=== PATIENT | female | born 1990 | race Caucasian/White ===

== ENCOUNTER 2019-11-27 13:21 | Outpatient (CLI) | payer OTHER, SELFPAY ==
--- NOTE | ~2019-11-27 | US_ITS ---
US breast BI complete INDICATION: Bilateral breast pain TECHNIQUE: Dedicated bilateral breast ultrasound COMPARISON: No prior studies for comparison. FINDINGS: The breasts are composed of normal heterogeneous echotexture without focal solid or cystic mass. IMPRESSION: 1: Normal bilateral breast ultrasound. BI-RADS CATEGORY 1 - NEGATIVE Reviewed, dictated and finalized at location A.
== END 2019-11-27 13:22 | disposition home or self-care (01) ==
LOC: ANHIMG 13:25
PROVIDERS: PCP Family Medicine; Visit Provider Physician Assistant
DX: N64.4 Mastodynia (principal)
CPT/HCPCS: 76641

== ENCOUNTER 2022-09-09 09:40 | Emergency (ER) | payer BC, SELFPAY ==
[2022-09-09 10:00] VITALS: BP 142/95; PULSE 89; RESP 18; TEMP 36.4; O2SAT 98
[2022-09-09 10:37] LABS: Appearance Urine Clear (Clear); Bilirubin Urine Negative (Negative); Blood Urine 1+ (Negative); Color Urine Yellow (Yellow); Glucose Urine UA Negative (Negative); Ketones Urine Negative (Negative); Leukocyte Esterase Ur 3+ LEU/UL (Negative); Nitrate Urine Negative (Negative); Protein Urine Negative (Negative); Specific Grav Ur 1.006 (1.001-1.035); Urobilinogen Urine 0.2 mg/dL (<2.0); pH Urine 5.5 (5.0-9.0)
[2022-09-09 11:02] LABS: RBC Urine None seen /hpf (0-2); Squamous Epithelial Cell Urine Occasional /hpf (Few); WBC Clumps Urine Present /HPF; WBC Urine 21-50 /hpf
[2022-09-09 11:03] LABS: Bacteria Urine 1+ /hpf
[2022-09-09 11:04] LABS: Add Urine Microscopic? YES
[2022-09-09] MEDS: PHENAZOPYRIDINE HCL 100 MG TABLET 200 MG PO (13:19)
--- NOTE | 2022-09-09 13:43 | ED.GENADULT ---
HPI - General Adult General Chief complaint: Urogenital-Female Stated complaint: ?UTI Time Seen by Provider: 09/09/22 12:33 History of Present Illness HPI narrative: 31-year-old female presented the ED for evaluation of burning with urination. Patient reports she has been experiencing pain on and off. Patient was having these symptoms previously and was encouraged to follow-up with urology but patient states that her schedule did not correlate well with the urologist so she never actually had follow-up. Related Data Allergies Allergy/AdvReac Type Severity Reaction Status Date / Time No Known Allergies Allergy Verified 09/09/22 11:57 Review of Systems Review of Systems: All systems reviewed & are unremarkable except as noted in HPI and below Exam Narrative: APPEARANCE: Well appearing, no pain, no distress, well-nourished. HEAD: normocephalic, atraumatic. EYES: PERRLA/EOMI, conjunctivae clear. NOSE: Normal no drainage NECK: Supple. No adenopathy, no masses. RESPIRATORY: Airway patent, respirations nonlabored. Clear to auscultation bilaterally, no rales, rhonchi, wheezing. CARDIOVASCULAR: Regular rate and rhythm without murmurs rubs or gallops. ABDOMINAL: Soft, nontender, nondistended, normal bowel sounds MUSCULOSKELETAL: Moves all extremities. Strength/ROM intact, No edema, No calf tenderness. NEURO: Alert. Cranial nerves II through XII intact. Grossly intact SKIN: Warm, dry. Normal Color Course Course Emergency Course: UA shows evidence of a urinary tract infection. Patient was treated with IV Rocephin. Patient was treated with p.o. Pyridium for complaint of dysuria. Patient and family were updated on the results of the work-up and plan for treatment. Patient was encouraged of close follow-up with urology. All questions and concerns were addressed. Vital Signs Vital signs: Vital Signs Temperature 97.6 F 09/09/22 10:00 Pulse Rate 89 09/09/22 10:00 Respiratory Rate 18 09/09/22 10:00 Blood Pressure 142/95 H 09/09/22 10:00 Pulse Oximetry 98 09/09/22 10:00 Oxygen Delivery Room Air 09/09/22 10:00 Temperature 97.6 F 09/09/22 10:00 Pulse Rate 89 09/09/22 10:00 Respiratory Rate 18 09/09/22 10:00 Blood Pressure 142/95 H 09/09/22 10:00 Pulse Oximetry 98 09/09/22 10:00 Oxygen Delivery Room Air 09/09/22 10:00 Medical Decision Making Differential Diagnosis Differential Diagnosis: Urinary tract infection, cystitis, pyelonephritis Vital Signs Vital Signs: Vital Signs Temperature 97.6 F 09/09/22 10:00 Pulse Rate 89 09/09/22 10:00 Respiratory Rate 18 09/09/22 10:00 Blood Pressure 142/95 H 09/09/22 10:00 Pulse Oximetry 98 09/09/22 10:00 Oxygen Delivery Room Air 09/09/22 10:00 Temperature 97.6 F 09/09/22 10:00 Pulse Rate 89 09/09/22 10:00 Respiratory Rate 18 09/09/22 10:00 Blood Pressure 142/95 H 09/09/22 10:00 Pulse Oximetry 98 09/09/22 10:00 Oxygen Delivery Room Air 09/09/22 10:00 Lab Data Lab results reviewed: Yes I reviewed the patient's lab results. Labs: Lab Results 09/09/22 Range/Units 10:13 Urine Color Yellow (Yellow) Urine Appearance Clear (Clear) Urine pH 5.5 (5.0-9.0) Ur Specific [place] 1.006 (1.001-1.035) Urine Protein Negative (Negative) mg/dL Urine Glucose (UA) Negative (Negative) mg/dL Urine Ketones Negative (Negative) mg/dL Ur Blood (Man) 1+ H (Negative) Urine Nitrate Negative (Negative) Urine Bilirubin Negative (Negative) Urine Urobilinogen 0.2 (<2.0) mg/dL Leukocyte Esterase Rfl 3+ H (Negative) CAMILO/UL Urine RBC None seen (0-2) /hpf Urine WBC 21-50 H /hpf Urine WBC Clumps Present H (None) /HPF Ur Squamous Epith Cells Occasional (Few) /hpf Urine Bacteria 1+ H /hpf UCG Bedside Result Negative Reference Range: Negative Discharge Plan Discharge Clinical Impressi
== END 2022-09-09 14:03 | disposition home or self-care (01) ==
PROVIDERS: Emergency Provider Emergency Medicine; PCP Family Medicine
DX: N39.0 Urinary tract infection, site not specified (principal)
CPT/HCPCS: 81001; 81025; 87077; 87086; 87186; 96365; 99284; A9270; J0696

== ENCOUNTER 2023-11-18 09:26 | Outpatient (CLI) | payer BC, SELFPAY ==
[2023-11-18 10:09] LABS: Anion Gap 9 mmol/L (4-12); Blood Urea Nitrogen 14 mg/dL (7-17); Calcium 8.9 mg/dL (8.4-10.2); Carbon Dioxide 23 mmol/L (22-30); Chloride 105 mmol/L (98-107); Cholesterol 195 mg/dL (0-200); Estimated Glomerular Filt Rate > 60; Glucose 93 mg/dL (65-110); HDL Direct 45 mg/dL; Potassium 4.1 mmol/L (3.4-5.0); Sodium 137 mmol/L (137-145); Triglycerides 215 mg/dL (<150)
[2023-11-18 10:20] LABS: LDL Cholesterol Direct 108 mg/dL
[2023-11-18 10:44] LABS: Vitamin D 25 Hydroxy 41.3 ng/mL
[2023-11-19 11:04] LABS: Progesterone <0.5 ng/mL
[2023-11-19 12:58] LABS: Insulin Level Total 21.2 uIU/mL
[2023-11-21 18:43] LABS: Testosterone Total 45 ng/dL (2-45)
== END 2023-11-18 09:27 | disposition home or self-care (01) ==
PROVIDERS: Student in an Organized Health Care Education/Training Program; PCP Nurse Practitioner Family; Visit Provider Nurse Practitioner Family
DX: E66.9 Obesity, unspecified (principal); E28.2 Polycystic ovarian syndrome; E55.9 Vitamin D deficiency, unspecified; Z13.220 Encounter for screening for lipoid disorders
CPT/HCPCS: 36415; 80048; 80061; 82306; 83525; 84144; 84403; 84443

== ENCOUNTER 2024-02-02 12:18 | Emergency (ER) | payer BC, SELFPAY ==
--- NOTE | ~2024-02-02 | US_ITS ---
COMPLETE ABDOMINAL ULTRASOUND Ordering provider: Blayne Banks MD History: . pain . Comparison: None. FINDINGS: LIVER: Difficult to penetrate. Otherwise, Normal size and echotexture. No focal hepatic lesions or pe rihepatic fluid collections are identified. Normal flow of the portal vein. GALLBLADDER: Cholelithiasis. No evidence for , sludge, gallbladder wall thickening or pericholecystic fluid collections. The wall measures 2 mm. A negative sonographic Delgado's sign was noted. BILIARY DUCTS: No evidence for intra or extrahepatic biliary dilation. Common bile duct measures 6 mm in diameter which is within normal limits. PANCREAS: Partially visualized. Normal echotexture and size. IMPRESSION: Cholelithiasis with no evidence of cholecystitis. Reviewed, dictated and finalized at location A.
--- NOTE | ~2024-02-02 | XR_ITS ---
EXAMINATION: XR chest 2V DATE: 02/02/2024 13:15 INDICATION: Low heart rate TECHNIQUE: frontal and lateral views of the chest were obtained. COMPARISON: Chest radiograph dated 09/24/2014 FINDINGS: Decreased lung volumes. Lungs remain clear. No focal airspace opacities, pulmonary edema, pleural eff usion or pneumothorax. The cardiomediastinal silhouette is normal. Visualized bones and soft tissues are unremarkable. IMPRESSION: 1. No acute cardiopulmonary disease. Reviewed, dictated and finalized at location A.
[2024-02-02 12:20] VITALS: BP 137/86; PULSE 79; RESP 20; TEMP 36.4; O2SAT 99
--- NOTE | 2024-02-02 12:24 | ECG_ITS ---
Test Date: 2024-02-02 12:28:26 Measurements Intervals Finley Rate: 65 P: 6 UT: 127 QRS: 3 QRSD: 97 T: 23 QT: 385 QTc: 402 Interpretive Statements SINUS RHYTHM No previous ECG available for comparison Electronically Signed On 02-02-2024 13:06:57 CDT by Sisi Michael M.D.
--- NOTE | 2024-02-02 12:24 | ED.GENADULT ---
HPI - General Adult General Chief complaint: Recheck/Abnormal Lab/Rx Stated complaint: abnormal HR, abd pain Time Seen by Provider: 02/02/24 12:20 History of Present Illness HPI narrative: Patient is a 33-year-old female who presents ER with 2 complaints. First is low heart rate. Reports her wash alerted her to heart rate of 38 beats per minute. It was a singular episode today. Asymptomatic. She has had similar episodes like this over last week. No exertional dyspnea or lightheadedness. Patient does report some epigastric cramping without radiation. No known aggravating or alleviating factors. She does still have a gallbladder. Related Data Home Medications Medication Instructions Recorded Confirmed vit no.95-ferrous tablet PO 10/12/22 12/21/23 fumarate 28 mg-folic acid 800 mcg tablet () sertraline 100 mg tablet 100 mg PO 10/12/22 12/21/23 Allergies Allergy/AdvReac Type Severity Reaction Status Date / Time No Known Allergies Allergy Verified 12/21/23 14:53 Review of Systems Review of Systems: All systems reviewed & are unremarkable except as noted in HPI and below Constitutional: Constitutional: Reports no additional constitutional complaints ENT: Reports system reviewed and no additional complaints, except as documented Cardiovascular: Cardiovascular: Denies chest pain, Denies rapid heart rate, Denies radiating jaw, neck or arm pain and Reports slow heart rate Respiratory: Respiratory: Reports no additional respiratory complaints Gastrointestinal: Gastrointestinal: Reports abdominal pain, Denies diarrhea, Denies nausea and Denies vomiting PMFSH Past Medical History Medical History Anxiety Depression PCOS (polycystic ovarian syndrome) Surgical History Surgical History H/O knee surgery x 4 Hx of tonsillectomy Family History Family History Mother Acute myocardial infarction Father Blood clot in leg Social History Social History Smoking status: Former smoker Alcohol intake: current Alcohol use details: rare Substance use: never Lack of Transportation: No Lack of Food: Never True Current Housing: I Have Housing Concerned About Future Housing: No Difficulty Paying Gas/Electric Bills: No Difficulty Paying for Meds: No Currently Unemployed: No Education: High School Diploma/GED Difficulty w/ Childcare or Family Care: No Living arrangements: other Additional living arrangements comments: Occupation/Education: occupation Gender identity (if verbalized by the patient): Female Sexual Orientation (if Verbalized by the Patient): Straight or Heterosexual Exam Narrative: GENERAL: Well-appearing, Morbidly obese, and in no acute distress. HEAD: Normocephalic, atraumatic. ENT: Mucous membranes moist. NECK: Supple. CHEST: Clear to auscultation. No respiratory distress. HEART: Regular rate and rhythm. Normal peripheral pulses. ABDOMEN: Soft, nontender, nondistended. EXTREMITIES: Normal range of motion. No edema. SKIN: Warm, dry, no rash. NEURO: Alert and oriented x3. PSYCH: Normal mood and affect. Course Course Emergency Course: Patient resting comfortably. Informed of imaging and lab results. Discussed treatment plan including low-fat diet as well as as needed pain/nausea control. Follow-up with general surgery. Vital Signs Vital signs: Vital Signs Temperature 97.6 F 02/02/24 12:20 Pulse Rate 79 02/02/24 12:20 Respiratory Rate 20 02/02/24 12:20 Blood Pressure 137/86 02/02/24 12:20 Pulse Oximetry 99 02/02/24 12:20 Oxygen Delivery Room Air 02/02/24 12:20 Temperature 97.6 F 02/02/24 12:20 Pulse Rate 77 02/02/24 14:57 Respiratory Rate 19 02/02/24 14:5
[2024-02-02] MEDS: SODIUM CHLORIDE 0.9% IV 1,000 ML 999 ML IV CONT (13:01)
[2024-02-02] MEDS: MORPHINE SULFATE (*CRX) 4 MG/ML INJ 2 MG IV PUSH (13:01)
[2024-02-02 13:08] LABS: Basophils Percent Auto 0.2 % (0.2-1.2); Eosinophils Absolute Auto 0.1 K/mm3 (0-0.3); Eosinophils Percent Auto 0.6 % (0-4.4); Hematocrit 40.4 % (37.0-47.0); Hemoglobin 13.6 g/dL (12.0-15.0); Immature Granulocyte Absolute 0.04 K/mm3 (0.00-0.031); Immature Granulocyte Percent A 0.4 % (0-0.5); Lymphocytes Percent Auto 31.4 % (18.3-44.2); Mean Corpuscular HGB Conc 33.7 g/dl (32-36); Mean Corpuscular Hemoglobin 28.5 pg (26-34); Mean Corpuscular Volume 84.5 fl (80-100); Mean Platelet Volume 9.4 fl (7.4-10.4); Monocytes Absolute Auto 0.7 K/mm3 (0.1-0.6); Monocytes Percent Auto 7.1 % (2.6-8.5); Neutrophils Absolute Auto 5.9 K/mm3 (1.3-6.7); Neutrophils Percent Auto 60.3 % (45.5-73.1); Platelet Count Result 323 k/mm3 (150-375); Red Blood Count 4.78 M/mm3 (4.2-5.4); Red Cell Distribution Width 13.2 % (11.5-14.5); White Blood Count 9.9 K/mm3 (4.5-10.0)
[2024-02-02 13:17] LABS: Lactic Acid Reflex 1.2 mmol/L (0.7-2.0)
[2024-02-02 13:18] LABS: Alanine Aminotransferase 32 U/L (6-35); Albumin Level 4.2 g/dL (3.5-5.1); Alkaline Phosphatase 59 U/L (38-126); Anion Gap 8 mmol/L (4-12); Aspartate Amino Transferase 38 U/L (14-36); Bilirubin,Total 0.3 mg/dL (0.2-1.3); Blood Urea Nitrogen 15 mg/dL (7-17); Calcium 9.6 mg/dL (8.4-10.2); Carbon Dioxide 25 mmol/L (22-30); Chloride 103 mmol/L (98-107); Estimated CRCL calculation 117 ml/min; Estimated Glomerular Filt Rate > 60; Glucose 110 mg/dL (65-110); Lipase 75 U/L (23-300); Potassium 4.2 mmol/L (3.4-5.0); Sodium 136 mmol/L (137-145)
--- NOTE | 2024-02-02 14:38 | PC.NURSE ---
patient ambulated to restroom with steady gate
[2024-02-02 14:57] VITALS: BP 113/85; PULSE 77; RESP 19; O2SAT 97
[2024-02-02] MEDS: MORPHINE SULFATE (*CRX) 4 MG/ML INJ IV PUSH (14:58)
[2024-02-02 15:02] LABS: Add Urine Microscopic? NO; Appearance Urine Clear (Clear); Bilirubin Urine Negative (Negative); Blood Urine Negative (Negative); Color Urine Yellow (Yellow); Glucose Urine UA Negative (Negative); Ketones Urine Negative (Negative); Leukocyte Esterase Ur Negative LEU/UL (Negative); Nitrate Urine Negative (Negative); Protein Urine Negative (Negative); Specific Grav Ur 1.016 (1.001-1.035); Urobilinogen Urine 0.2 mg/dL (<2.0)
[2024-02-02 16:06] VITALS: BP 113/80; PULSE 78; RESP 15; O2SAT 96
== END 2024-02-02 16:17 | disposition home or self-care (01) ==
PROVIDERS: Emergency Provider Emergency Medicine; PCP Family Medicine
DX: K80.20 Calculus of gallbladder without cholecystitis without obstruction (principal); E28.2 Polycystic ovarian syndrome; F41.9 Anxiety disorder, unspecified; F32.A Depression, unspecified; Z87.891 Personal history of nicotine dependence
CPT/HCPCS: 36415; 71046; 76705; 80053; 81003; 83605; 83690; 85025; 93005; 96361; 96374; 96376; 99284; J2270; J7030

== ENCOUNTER 2024-03-06 20:47 | Emergency (ER) | payer BC, SELFPAY ==
[2024-03-06 20:54] VITALS: BP 127/106; PULSE 91; RESP 16; TEMP 36.3; O2SAT 98
--- NOTE | 2024-03-06 22:23 | PC.NURSE ---
pt to rn ortho that she thinks it was just indigestion and will be leaving. Pt drank a sprite and feels better.
[2024-03-06 22:25] LABS: Basophils Percent Auto 0.4 % (0.2-1.2); Eosinophils Absolute Auto 0.1 K/mm3 (0-0.3); Eosinophils Percent Auto 1.1 % (0-4.4); Hematocrit 39.6 % (37.0-47.0); Hemoglobin 13.3 g/dL (12.0-15.0); Immature Granulocyte Absolute 0.03 K/mm3 (0.00-0.031); Immature Granulocyte Percent A 0.3 % (0-0.5); Lymphocytes Absolute Auto 3.93 K/mm3 (0.9-3.2); Lymphocytes Percent Auto 34.6 % (18.3-44.2); Mean Corpuscular HGB Conc 33.6 g/dl (32-36); Mean Corpuscular Hemoglobin 28.4 pg (26-34); Mean Corpuscular Volume 84.4 fl (80-100); Mean Platelet Volume 9.5 fl (7.4-10.4); Monocytes Absolute Auto 0.8 K/mm3 (0.1-0.6); Monocytes Percent Auto 7.1 % (2.6-8.5); Neutrophils Absolute Auto 6.4 K/mm3 (1.3-6.7); Neutrophils Percent Auto 56.5 % (45.5-73.1); Platelet Count Result 294 k/mm3 (150-375); Red Blood Count 4.69 M/mm3 (4.2-5.4); Red Cell Distribution Width 13.8 % (11.5-14.5); White Blood Count 11.4 K/mm3 (4.5-10.0)
[2024-03-06 22:43] LABS: Alanine Aminotransferase 24 U/L (6-35); Alkaline Phosphatase 56 U/L (38-126); Anion Gap 9 mmol/L (4-12); Aspartate Amino Transferase 27 U/L (14-36); Bilirubin,Total 0.3 mg/dL (0.2-1.3); Blood Urea Nitrogen 13 mg/dL (7-17); Calcium 9.4 mg/dL (8.4-10.2); Carbon Dioxide 24 mmol/L (22-30); Chloride 105 mmol/L (98-107); Estimated CRCL calculation 118 ml/min; Estimated Glomerular Filt Rate > 60; Glucose 104 mg/dL (65-110); Lipase 53 U/L (23-300); Potassium 3.6 mmol/L (3.4-5.0); Sodium 138 mmol/L (137-145)
== END 2024-03-06 23:21 | disposition left against medical advice (07) ==
LOC: ANHED 22:39
PROVIDERS: Emergency Provider Emergency Medicine; PCP Family Medicine
DX: R10.11 Right upper quadrant pain (principal)
CPT/HCPCS: 36415; 80053; 83690; 85025; 99199

== ENCOUNTER 2024-05-17 11:45 | Emergency (ER) | payer BC, SELFPAY ==
[2024-05-17 11:56] VITALS: BP 119/72; PULSE 92; RESP 18; TEMP 36.4; O2SAT 99
[2024-05-17 12:14] LABS: EDCOVIDSCREEN Negative (Negative); EDINFLUASCREEN Negative (Negative); EDINFLUBSCREEN Negative (Negative); EDSTREPNEGPOS1 Negative (Negative)
--- OUTSIDE RECORDS SUMMARY | 2024-05-17 12:59 | XMS_ITS ---
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 Clerk Stocking Name Role Phone Chirag Storey DO Unavailable [phone], Shameka Unavailable [phone] Allergies No Known Allergies Medications Medication SIG (Take, Route, Frequency, Duration) Notes Start Date End Date Status busPIRone HCl 10 MG 1 tablet Orally Twice a day Active Lunesta 3 MG 1 tablet immediately before bedtime Orally Once a day Active ALPRAZolam 0.5 MG 1 tablet Orally Twice a day Active Zepbound 2.5 MG/0.5ML 0.5 mL Subcutaneous Active Active Fish Oil 1000 MG 1 capsule Orally Thr ee times a day Active Vitamin D3 125 MCG (5000 UT) 1 capsule Orally Once a day Active Sertraline HCl 100 MG 1 tablet Orally Once a day Active Problems Problem Type SNOMED Code ICD Code Onset Dates Problem Status W/U Status Risk Notes Problem 270200293 Body mass index [BMI] 45.0-49.9, adult (Z68.42) Active confirmed Vital Signs Temperature 96.4 degrees Fahrenheit 12/23/19 24 Blood pressure systolic 107 mm Hg 12/23/19 24 Blood pressure diastolic 79 mm Hg 024 Heart Rate 93 /min 12/23/2023 Height 65 in 12/23/2023 Weight 284 lbs 12/23/2023 BMI 47.25 kg/m2 12/23/2023 Oximetry 98 % 12/23/2023 Height-cm 165.1 cm 12/23/2023 Weight-kg 128.82 kg 12/23/2023 Encounters Encounter Location Date Provider Diagnosis [facility] [address] [place] [address] 12/23/2023 Shameka Hadley Dietary counseling and surveillance Z71.3 and Body mass index [BMI] 45.0-49.9, adult Z68.42 Assessments Encounter Date Diagnosis (ICD Code) Assessment Notes Treatment Notes Treatment Clinical Notes Section Notes 12/23/2023 Dietary counseling and surveillance (ICD-10 - Z71.3) 12/23/2023 Body mass index [BMI] 45.0-49.9, adult (ICD-10 - Z68.42) Plan Of Treatment No Information Progress Notes * Haven WRIGHTDOB:1990 ([age] yo F)Acc No.[id number]:12/23/2023 Patient:?Haven WRIGHT Provider:?Shameka Hadley RD :1990???Age:33 Y???Sex:Female D ate:12/23/2023 Address:[facility] [address], [place] [address] Subjective: * Chief Complaints: * ??? 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 ?Nutrition Focused Exam:?Pt is morbidly obese. Does not indicate any signs of protein wasting or dehydration. ?Smoker:?Patient smokes frequently ?Alcohol Consumption:?No . ?Dietary?Prior diet education:?patient has Not seen RD before . ?Food allergies:?none ?Restricted food (restorationist or lifestyle):?none ?Food Security:?high to marginal ?[employer] stores shopped at:?[employer] ?24 Hour Recall?: ?Breakfast:?protein powder with overnight oats ?Lunch:?crackers and cheese with turkey pepperoni. Mendez peppers and avocado. ?Dinner:?tacos with deer meat, cheese, rice and sour cream ?Snacks:?none ?Beverages:?water, pepsi ?Current inappropriate eating behaviors:?unhealthy food choices,grazing,large portion sizes ?Highest Adult Weight:?315 ?Lowest Adult Weight:?200 ?Past Attempts at weight loss:?diet/exercise, phentermine, zepbound ?Average meals per day:?3 ?Average snacks per day:?2 ?Frequency of cooking at home:?most nights ?Meal Planning:?has used [employer], typically does 5x weekly but is not currently due to boyfriend not working ?Average number of times eating at sit down restaurant per week:?0-1 ?Average number of times eating fast food or take out per week:?0-3 ?Exercise habits:?does not currently exercise - motivation/plantar fasciitis as barriers ?Intervention?Nutrition Diagnosis:?No nutrition diagnosis at this time. _ ?_?. ?GOALS?: ?1.?Increase physical activity - finding online at home workouts focusing on upper body to not strain foot pain ?2.?Adjust ratio of water intake to soda intake ?Monitoring/Evaluation?Patient was seen today for their initial bariatric surgery consultation. Patients states they have jaret overweight and/or obese for several years, with weight gain starting?a few years ago (pts forms say both 2001 and 2019) ?Previous attempts at weight loss include?diet/exercise, phentermine, zepbound ?Inappropriate dietary patterns include?large portion sizes, grazing/boredom eating, eating at night, poor food choices ?Patient reports?high food security. ?Typical diet outlined by the patient is?overall well balanced, does contain higher than recommend amounts of added sugars via soda intake and fat however is trying to choose heart healthy sources such as avocado. Pt is currently on zepbound - does not provide details of how this is going. ?Today we reviewed the initial bariatric surgery packet, I highlighted the importance of protein and fluid after surgery. I reviewed specifications on both fluid and protein, as well as specific eating behaviors and lifestyle changes expected of the patient?after surgery. Patient expressed verbal understanding to all education today and was provided with opportunity to ask questions. Patient has RD contact information and is encouraged to communicate with RD as patient feels necessary. * Medical History:? * Surgical History:?Denies Pas t Surgical History * Hospitalization/Major Diagno stic Procedure:? * Social History:?Migrated Social History:?Migrated Social History: Never a smoker. * Medications:?TakingVitamin D 3 125 MCG (5000 UT) Capsule 1 capsule Orally Once a day Fish Oil 1000 MG Capsule 1 capsule Orally Three times a day Zepbound 2.5 MG/0.5ML Solution Auto-injector 0.5 mL Subcutaneous ALPRAZolam 0.5 MG Tablet 1 tablet Orally Twice a day Lunesta 3 MG Tablet 1 tablet immediately before bedtime Orally Once a day busPIRone HCl 10 MG Tablet 1 tablet Orally Twice a day Sertraline HCl 100 MG Tablet 1 tablet Orally Once a day Medication List reviewed and reconciled with the patientTaking Vitamin D3 125 MCG (5000 UT) Capsule 1 capsule Orally Once a day Taking Fish Oil 1000 MG Capsule 1 capsule Orally Three times a day Taking Taking Zepbound 2.5 MG/0.5ML Solution Auto-injector 0.5 mL Subcutaneous Taking ALPRAZolam 0.5 MG Tablet 1 tablet Orally Twice a day Taking Lunesta 3 MG Tablet 1 tablet immediately before bedtime Orally Once a day Taking busPIRone HCl 10 MG Tablet 1 tablet Orally Twice a day Taking Sertraline HCl 100 MG Tablet 1 tablet Orally Once a day Medication List reviewed and reconciled with the patient * Allergies:?N.K.D.A.no[Allerg ies Verified] Objective: * Vitals:?Wt:284, Ht: 65, HT: 5'5, BMI:47.25, Oxygen sat %:98, HR:93, BP:107/79, Temp:96.4, Wt-k.82, Ht-cm: 165.1, Body Surface Area: 2.43. Assessment: * Assessment: 1.?Dietary counseling and mclean rveillance - Z71.3 (Primary)???2.?Body mass index [BMI] 45.0-49.9, adult - Z68.42??? Plan: * Treatment: * Procedure Codes:? * Billing Information: * Visit Code:? * Procedure Codes:? * Sign off status: Completed true * Provider:?Shameka Morrellyhrich, RD Date:? 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 I reviewed specifications on both fluid and protein, as well as specific eating behaviors and lifestyle changes expected of the patient after surgery. Patient expressed verbal understanding to all education today and was provided with opportunity to ask questions. Patient has RD contact information and is encouraged to communicate with RD as patient feels necessary. Weight (lbs):: 284 Height (feet):: 5'5 BMI:: 47 BMI Class:: obese 3 IBW (lbs):: 125 %IBW:: 227 Adjusted IBW (lbs):: 150 %Adjusted IBW:: 189 EBW (lbs):: 133 Biochemical * Labs:: See Current Labs Below * Current Medications:: See Current Medi cations Below * Current Vitamins and Minerals:: vitami n D3, fish oil, Clinical Past Medical History:: See Medic al History Below Surgery Type:: VSG . Nutrition Focused Exam:: Pt is morbidly obese. Does not indicate any signs of protein wasting or dehydration. Smoker:: Patient smokes frequently Alcohol Consumption:: No . Dietary Prior diet education:: patient h as Not seen RD before . Food allergies:: none Restricted food (restorationist or lifestyle) :: none Food Security:: high to marginal Grocery stores shopped at:: [employer] 24 Hour Recall: : Breakfast:: protein powder with overnight oats Lunch:: crackers and cheese with turkey pepperoni. Mendez peppers and avocado. Dinner:: tacos with deer meat , cheese, rice and sour cream Snacks:: none Beverages:: water, pepsi Current inappropriate eating behaviors:: unhealthy food choices,grazing,large portion sizes Highest Adult Weight:: 315 Lowest Adult Weight:: 200 Past Attempts at weight loss:: diet/exer cise, phentermine, zepbound Average meals per day:: 3 Average snacks per day:: 2 Frequency of cooking at home:: most nigh ts Meal Planning:: has used [employer] , typically does 5x weekly but is not currently due to boyfriend not working Average number of times eati ng at sit down restaurant per week:: 0-1 Average number of times eati ng fast food or take out per week:: 0-3 Exercise habits:: does not currently e xercise - motivation/plantar fasciitis as barriers Intervention Nutrition Diagnosis:: No nutriti on diagnosis at this time. _ _: . GOALS: : 1.: Increase physical ac tivity - finding online at home workouts focusing on upper body to not strain foot pain 2.: Adjust ratio of wate r intake to soda intake Monitoring/Evaluation Patient was seen t pollo for their initial bariatric surgery consultation. Patients states they have jaret overweight and/or obese for several years, with weight gain starting: a few years ago (pts forms say both 2001 and 2019) Previous attempts at weight loss include : diet/exercise, phentermine, zepbound Inappropriate dietary patterns include: large portion sizes, grazing/boredom eating, eating at night, poor food choices Patient reports: high food security. Typical diet outlined by the patient is: overall well balanced, does contain higher than recommend amounts of added sugars via soda intake and fat however is trying to choose heart healthy sources such as avocado. Pt is currently on zepbound - does not provide details of how this is going.
--- OUTSIDE RECORDS SUMMARY | 2024-05-17 12:59 | XMS_ITS ---
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 [address] [place] [address] 01/21/2024 Chirag Storey Plan Of Treatment No Information Progress Notes * KYLEJoseyashwinDOB:1990 ([age] yo F)Acc No.[id number]:01/21/2024 Patient:?Haven WRIGHT Provider:Cedric Storey DO :1990???Age:33 Y???Sex:Female D ate:01/21/2024 Address:[facility] [address] [facility] * Billing Information: * Visit Code:? * Procedure Codes:? * Electronic signature of Juventino Storey DO, [id number] on 05/17/2024 at 12:59 PM TAX COLLECTION COORDINATOR Sign off status: Pending * Provider:Cedric Storey DO Date:?2023 Generated for Karlos chavez/Tamy/eTransmitting on:?05/17/2024 12:59 PM TAX COLLECTION COORDINATOR
--- OUTSIDE RECORDS SUMMARY | 2024-05-17 13:00 | XMS_ITS | Clinical Summary ---
Author Organization [facility] Address [address] [place] [address] Care Team Providers Care Ell Teacher Name Role Phone Fredy Ellington MD Primary Care Provider [phone] Allergies Active Allergy Reactions Criticality Noted Date Comments Sertraline Swollen tongue High Reaction: tongue swelling, Medications ibuprofen (ADVIL,MOTRIN) 800 mg tablet take one as needed for pain every 4-6 hrs 100 0 7 Active Additional Information Patient not taking.Reported on 01/20/2023 ALPRAZolam (XANAX) 0.5 mg tablet take 1 tablet by oral route every day 30 0 7 Active buPROPion SR (Wellbutrin SR) 150 mg 12 hr tablet Take 1 tablet (150 mg total) by mouth 2 (two) times a day 5 Active busPIRone (BUSPAR) 10 mg tablet Take 1 tablet (10 mg total) by mouth 3 (three) times a day 0 Active hydrOXYzine (VISTARIL) 25 mg capsule Take 1 capsule (25 mg total) by mouth 4 (four) times a day as needed 1 Active Wegovy 2.4 mg/0.75 mL auto-injector Inject 0.75 mL (2.4 mg total) under the skin every 7 days Active sertraline (ZOLOFT) 100 mg tablet Take 2 tablets (200 mg total) by mouth daily Active vitamin ferrous fumarate-folic () 28 mg iron- 800 mcg tablet Take 1 tablet by mouth daily 90 tablet 3 4 Active norgestimate-et hinyl estradioL (ORTHO-CYCLEN) 0.25-35 mg-mcg per tablet Take 1 tablet by mouth daily 28 tablet 12 4 Active Active Problems Problem Noted Date Diagnosed Date Morbid obesity with BMI of 45.0-49.9, adult 08/18 Encounter for male factor infertility in female patient 09/22/2022 Female infertility 09/22/2022 Polycystic ovarian syndrome 06/19/2021 Medical History Medical History Date Comments Allergies Anxiety Depression PCOS (polycystic ovarian syndrome) Family History Medical History Relation Name Comments Clotting disorder Father Heart attack Mother Relation Name Status Comments Father Mother Social History Tobacco Use Types Packs/Day Years Used Date Smoking Tobacco: Never Alcohol Use Standard Drinks/Week Comments No 0 (1 standard drink = 0.6 oz pur e alcohol) Personal Safety Answer Date Recorded Getting School Help Needed Not on file 05/22 Comments Unknown Sex and Gender Information Value Date Recorded Sex Assigned at Not on file Legal Sex Female 11:34 AM [employer] Gender Identity Female 08/13/2020 1:44 PM CDT Sexual Orientation Straight 08/13/2020 1: 44 PM CDT Obstetrics History Para Term AB IAB SAB Ectopic Multiple Livin g Live Births 1 1 1 Date Outcome GA Total Labor Labor/2nd/3rd Weight Sex Type Anes PTL Gricelda A1 A5 Name Clin SAB SAB Last Filed Vital Signs Vital Sign Reading Time Taken Comments Blood Pressure 111/75 10/25/2023 8:10 AM CDT Pulse 79 10/25/2023 8:10 AM CDT Temperature - - Respiratory Rate - - Oxygen Saturation 98% 01/20/2023 1:49 PM CDT Inhaled Oxygen Concentration - - Weight 124.3 kg (274 lb) 10/25/2023 8:10 AM CDT Height 165.1 cm (5' 5 ) 10/25/2023 8:10 AM CDT Body Mass Index 45.6 10/25/2023 8:10 AM CDT Plan of Treatment Health Maintenance Due Date Last Done Comments Cervical Cancer Screening 1990 Depression Screening 1990 Hepatitis C Screening 1990 Varicella Vaccines (1 of 2 - 13+ 2-dose series) 10/02/2003 Regular Well Visit/Exam 18-64 2008 DTaP/Tdap/Td Vaccine (7 - Tdap) 06/10/2015 06/10/2005, 11/16/1994, 05/29/1992, Additional history exists Influenza Vaccine (#1) 2023 , 04/05/2020, 03/25/2018, Additional history exists HPV Vaccines Completed 02/26/2015, 02/18, 11/10/2007, Additional history exists Pneumococcal vaccine <65 Aged Out No longer eligible based on patient's age to complete this topic Insurance [facility] Active [employer] Active [employer] Care Teams Ell Teacher Relationship Specialty Start Date End Date Fredy Ellington MD [facility] [address] PCP - General 07/21/16
--- OUTSIDE RECORDS SUMMARY | 2024-05-17 13:00 | XMS_ITS | Patient Health Record ---
Author Organization [facility] Address [address] [facility] [address] [place] [address] Care Team Providers Care Housekeeper Manager Name Role Phone Chirag Storey DO Unavailable [phone] Jomar MILLER, Shameka Unavailable Allergies No Known Allergies Reason For Referral No Information Medications Medication SIG (Take, Route, Frequency, Duration) Notes Start Date End Date Status busPIRone HCl 10 MG 1 tablet Orally Twice a day Active busPIRone HCl 10 MG 1 tablet Orally Twice a day Active Lunesta 3 MG 1 tablet immediately before bedtime Orally Once a day Active Lunesta 3 MG 1 tablet immediately before bedtime Orally Once a day 12/24/2023 Active ALPRAZolam 0.5 MG 1 tablet Orally Twice a day Active ALPRAZolam 0.5 MG 1 tablet Orally PRN 12/24/2023 Active Zepbound 2.5 MG/0.5ML 0.5 mL Subcutaneous 12/24/19 24 Active Zepbound 2.5 MG/0.5ML 0.5 mL Subcutaneous Active Active + Complete Multi 18-0.8 & 290 MG as directed Orally 12/24/2023 Active Fish Oil 1000 MG 1 capsule Orally Thr ee times a day Active Berberine Complex 200-200-50 MG as directed Orally 12/24/2023 Active Vitamin D3 125 MCG (5000 UT) 1 capsule Orally Once a day Active Fish Oil 1000 MG 1 capsule Orally Thr ee times a day 12/24/2023 Active Sertraline HCl 100 MG 1 tablet Orally Once a day Active Sertraline HCl 100 MG 1 tablet Orally Once a day Active Problems Problem Type SNOMED Code ICD Code Onset Dates Problem Status W/U Status Risk Notes Problem [id number] Body mass index [BMI] 45.0-49.9, adult (Z68.42) Active confirmed Vital Signs Heart Rate 93 /min 12/23/2023 Temperature 96.4 degrees Fahrenheit 12/23/2023 Height-cm 165.1 cm 12/23/2023 Blood pressure diastolic 79 mm Hg 12/23/2023 Oximetry 98 % 12/23/2023 Weight-kg 128.82 kg 12/23/2023 Height 65 in 12/23/2023 Blood pressure systolic 107 mm Hg 12/23/2023 Weight 284 lbs 12/23/2023 BMI 47.25 kg/m2 12/23/2023 Procedures Procedure Date Ordered Date Performed Result Body Sit e ESOPHAGOGASTRODUODENOSCOPY 12/23/2023 N/A Encounters Encounter Location Date Provider Diagnosis [facility] [address] [place] [address] 01/21/2024 Chirag Storey [facility] [address] [address] 12/23/2023 Chirag Storey Gastro-esophageal reflux disease without esophagitis K21.9 ; Body mass index [BMI] 45.0-49.9, adult Z68.42 and Nicotine dependence unspecified, with withdrawal F17.203 [facility] [address] [address] 12/23/2023 Shameka Hadley Dietary counseling and surveillance Z71.3 and Body mass index [BMI] 45.0-49.9, adult Z68.42 Assessments Encounter Date Diagnosis (ICD Code) Assessment Notes Treatment Notes Treatment Clinical Notes Section Notes 12/23/2023 Gastro-esophageal reflux disease without esophagitis (ICD-10 - K21.9) 12/23/2023 Body mass index [BMI] 45.0-49.9, adult (ICD-10 - Z68.42) 12/23/2023 Dietary counseling and surveillance (ICD-10 - Z71.3) 12/23/2023 Body mass index [BMI] 45.0-49.9, adult (ICD-10 - Z68.42) 12/23/2023 Nicotine dependence unspecified, with withdrawal (ICD-10 - F17.203) Plan Of Treatment Pending Test Test Name Order Date ESOPHAGOGASTRODUODENOSCOPY 12/23/2023 NICOTINE AND COTININE, URINE ([id number]) 08/2023 Insurance Providers Payer Name Payer Address Payer Phone Subscriber Number Group Number Insured Name Patient Relationship to Insured Coverage Start Date Coverage End Date [employer] [address] [place] [address] [id number] Haven Castaneda Self - patient is the insured Medical (General) History Medical History History ICD Code anxiety
--- OUTSIDE RECORDS SUMMARY | 2024-05-17 13:00 | XMS_ITS | Data Portability ---
Author Organization [facility] Address [address] [place] [address] Care Team Providers Care Clean Out Driller Name Role Phone PAULA LOUISE Plater Hot Dip Assessment Encounter Date Assessment Date Assessment LastModified by Organization Details LastModified Time 06/23/2019 06/23/2019 MEGAN Solis ([facility]) Not available 06/24/2019 17:04:59 11/03/2019 11/03/2019 MEGAN Lopez, [facility] Not available 11/03/2019 18:54:34 Plan of Treatment Reminders Order Date Submit Date Provider Last Modified By Organization Details Last Modified Time Details Appointments None recorded . Lab pregnanc y test, urine 2019 020 roberth In-Office Order, Internal Use Only DO Not Attach Compendium DO Not Attach Compendium, Do Not Delete/merge, [id number] 0 15:55:03 urinalys is, dipstick 2019 020 roberth In-Office Order, Internal Use Only DO Not Attach Compendium DO Not Attach Compendium, Do Not Delete/merge, [id number] 0 15:55:03 CT + NG + TV, DNA, urine/sw ab 2019 020 JANAY [facility], [address], [place], [address], 0 20:07:41 urinalys is, dipstick 2019 020 In-Office Order, Internal Use Only DO Not Attach Compendium DO Not Attach Compendium, Do Not Delete/merge, [id number] 0 16:38:21 pregnanc y test, urine 2019 020 In-Office Order, Internal Use Only DO Not Attach Compendium DO Not Attach Compendium, Do Not Delete/merge, [id number] 0 16:38:22 urinalys is, dipstick 2019 020 [email or web address] In-Office Order, Internal Use Only DO Not Attach Compendium DO Not Attach Compendium, Do Not Delete/merge, [id number] 0 11:03:24 pregnanc y test, urine 2019 020 [email or web address] In-Office Order, Internal Use Only DO Not Attach Compendium DO Not Attach Compendium, Do Not Delete/merge, [id number] 0 11:03:24 pap, IG + reflex HPV 2021 022 JANAY [facility], [address], [place], [address], 3 14:10:37 pregnanc y test, urine 2021 022 In-Office Order, Internal Use Only DO Not Attach Compendium DO Not Attach Compendium, Do Not Delete/merge, [id number] 2 16:27:07 Referral bariatri c surgery referral 2019 020 Precious [place], [address], [place], [address], 0 13:18:32 reproduc tive endocrin ologist referral 2019 020 JANAY Dukes, [address], [place], [address], 1 17:39:27 Procedures None recorded . Surgeries None recorded . Imaging US, breast, bilatera l 2019 020 [facility], [address], [place], [address], 0 16:32:43 Medication Orders 28 mg iron-800 mcg tablet 2019 020 [facility], [address] [place] [address], [address], 0 16:38:32 spironol actone 100 mg tablet 2019 020 [facility], [address] [place] [address], [address], 2 16:01:59 glyburid e 1.25 mg tablet 2019 020 [facility], [address] [place] [address], [address], 2 16:00:51 multivit roman tablet 2019 020 [facility], [address] [place] [address], [address], 2 16:01:27 Calcium with Vitamin D 600 mg-10 mcg (400 unit) tablet 2019 020 [facility], [address] [place] [address], [address], 2 16:00:41 medroxyp rogester one 10 mg tablet 2021 022 [facility] #[id number], [address] , [place], [address], 2 16:27:09 Patient TargetsNo targets recorded. Patient Instructions Encounter Date Encounter Id Patient Instructions Last Modified By Organization Details Last Modified Time 06/23/2019 [id number] A healthy lifestyle: care instructions Not available 06/26/2019 16:47:50 polycystic ovary syndrome: care instructions Not available 06/26/2019 16:38:51 learning about planning for future Not available 06/26/2019 16:38:35 09/27/2019 [id number] A healthy lifestyle: care instructions jessie Not available 09/27/2019 10:15:10 04/16/2022 [id number] Well Visit, Ages 18 to 65: Care Instructions Not available 04/16/2022 16:27:07 A healthy lifestyle: care instructions Not available 04/16/2022 16:27:10 Reason for Referral Administrative Judge Referral for Polycystic ovary syndrome Primary infertlity with BMI 53.6 Referring Physician: Musa Irwin LEAD PROGRAMMER ANALYST, Encounter Date: 09/27/2019 Bariatric Surgery Referral f or Morbid obesity BMI 53.6 Referring Physician: Musa Irwin LEAD PROGRAMMER ANALYST, Encounter Date: 09/27/2019 Results Created Date Observation Date Name Description Value Unit Range Abnormal Flag Note LastModifiedBy Organization Detail LastModifiedTime 09/27/19 20 09/27/2019 pregn lore test, urine HCG negati ve Not Available In-Office Order Internal Use Only DO Not Attach Compendium DO Not Attach Compendium, Do Not Delete/merge, [id number] 09/27/2019 10:02:28 06/23/1906/23/2019 pregn lore test, urine HCG negati ve Not Available In-Office Order Internal Use Only DO Not Attach Compendium DO Not Attach Compendium, Do Not Delete/merge, [id number] 06/23/2019 11:22:19 06/23/19 20 06/23/2019 urina lysis , dipst ick Leukocytes Negati ve Not Available In-Office Order Internal Use Only DO Not Attach Compendium DO Not Attach Compendium, Do Not Delete/merge, [id number] 06/23/2019 11:21:51 06/23/19 20 06/23/2019 urina lysis , dipst ick Nitrite negati ve Not Available In-Office Order Internal Use Only DO Not Attach Compendium DO Not Attach Compendium, Do Not Delete/merge, [id number] 06/23/2019 11:21:51 06/23/19 20 06/23/2019 urina lysis , dipst ick Urobilinogen .2 Not Available In-Of fice Order Internal Use Only DO Not Attach Compendium DO Not Attach Compendium, Do Not Delete/merge, 06/23/2019 11:21:51 06/23/19 20 06/23/2019 urina lysis , dipst ick Protein Negati ve Not Available In-Office Order Internal Use Only DO Not Attach Compendium DO Not Attach Compendium, Do Not Delete/merge, 06/23/2019 11:21:51 06/23/19 20 06/23/2019 urina lysis , dipst ick pH 5.5 Not Available In-Office Order Internal Use Only DO Not Attach Compendium DO Not Attach Compendium, Do Not Delete/merge, 06/23/2019 11:21:51 06/23/19 20 06/23/2019 urina lysis , dipst ick Blood Modera te Not Available In-Office Order Internal Use Only DO Not Attach Compendium DO Not Attach Compendium, Do Not Delete/merge, 06/23/2019 11:21:51 06/23/19 20 06/23/2019 urina lysis , dipst ick Specific Marianna 1.025 Not Available In-Off ice Order Internal Use Only DO Not Attach Compendium DO Not Attach Compendium, Do Not Delete/merge, 06/23/2019 11:21:51 06/23/19 20 06/23/2019 urina lysis , dipst ick Ketone Negati ve Not Available In-Office Order Internal Use Only DO Not Attach Compendium DO Not Attach Compendium, Do Not Delete/merge, 06/23/2019 11:21:51 06/23/19 20 06/23/2019 urina lysis , dipst ick Bilirubin Negati ve Not Available In-Office Order Internal Use Only DO Not Attach Compendium DO Not Attach Compendium, Do Not Delete/merge, 06/23/2019 11:21:51 06/23/19 20 06/23/2019 urina lysis , dipst ick Glucose Negati ve Not Available In-Office Order Internal Use Only DO Not Attach Compendium DO Not Attach Compendium, Do Not Delete/merge, [id number] 06/23/2019 11:21:51 05/30/19 20 05/30/2019 urina lysis , dipst ick Leukocytes Negati ve Not Available In-Office Order Internal Use Only DO Not Attach Compendium DO Not Attach Compendium, Do Not Delete/merge, 05/30/2019 15:43:16 05/30/19 20 05/30/2019 urina lysis , dipst ick Nitrite negati ve Not Available In-Office Order Internal Use Only DO Not Attach Compendium DO Not Attach Compendium, Do Not Delete/merge, 05/30/2019 15:43:16 05/30/19 20 05/30/2019 urina lysis , dipst ick Urobilinogen .2 Not Available In-Of fice Order Internal Use Only DO Not Attach Compendium DO Not Attach Compendium, Do Not Delete/merge, 05/30/2019 15:43:16 05/30/19 20 05/30/2019 urina lysis , dipst ick Protein Negati ve Not Available In-Office Order Internal Use Only DO Not Attach Compendium DO Not Attach Compendium, Do Not Delete/merge, 05/30/2019 15:43:16 05/30/19 20 05/30/2019 urina lysis , dipst ick pH 6.0 Not Available In-Office Order Internal Use Only DO Not Attach Compendium DO Not Attach Compendium, Do Not Delete/merge, 05/30/2019 15:43:16 05/30/19 20 05/30/2019 urina lysis , dipst ick Blood Negati ve Not Available In-Office Order Internal Use Only DO Not Attach Compendium DO Not Attach Compendium, Do Not Delete/merge, 05/30/2019 15:43:16 05/30/19 20 05/30/2019 urina lysis , dipst ick Specific Marianna 1.030 Not Available In-Off ice Order Internal Use Only DO Not Attach Compendium DO Not Attach Compendium, Do Not Delete/merge, 05/30/2019 15:43:16 05/30/19 20 05/30/2019 urina lysis , dipst ick Ketone Negati ve Not Available In-Office Order Internal Use Only DO Not Attach Compendium DO Not Attach Compendium, Do Not Delete/merge, [id number] 05/30/2019 15:43:16 05/30/19 20 05/30/2019 urina lysis , dipst ick Bilirubin Negati ve Not Available In-Office Order Internal Use Only DO Not Attach Compendium DO Not Attach Compendium, Do Not Delete/merge, [id number] 05/30/2019 15:43:16 05/30/19 20 05/30/2019 urina lysis , dipst ick Glucose Negati ve Not Available In-Office Order Internal Use Only DO Not Attach Compendium DO Not Attach Compendium, Do Not Delete/merge, [id number] 05/30/2019 15:43:16 05/30/19 20 05/30/2019 pregn lore test, urine HCG negati ve Not Available In-Office Order Internal Use Only DO Not Attach Compendium DO Not Attach Compendium, Do Not Delete/merge, [id number] 05/30/2019 15:43:02 05/30/19 20 06/01/2019 CT + NG + TV, DNA, urine /swab chlamydia by NOMI NEGATI VE negati ve Not Available [facility] ([facility]) [address] [place], [address], 06/01/2019 20:07:41 05/30/19 20 06/01/2019 CT + NG + TV, DNA, urine /swab gonococcus by NOMI NEGATI VE negati ve Not Available [facility] ([facility]) [address] [place], [address], 06/01/2019 20:07:41 05/30/19 20 06/01/2019 CT + NG + TV, DNA, urine /swab trich vag by NOMI NEGATI VE negati ve Not Available [facility] ([facility]) [address] [place], [address], 06/01/2019 20:07:41 09/27/19 20 09/27/2019 urina lysis , dipst ick Leukocytes Negati ve Not Available In-Office Order Internal Use Only DO Not Attach Compendium DO Not Attach Compendium, Do Not Delete/merge, 09/27/2019 10:01:36 09/27/19 20 09/27/2019 urina lysis , dipst ick Nitrite negati ve Not Available In-Office Order Internal Use Only DO Not Attach Compendium DO Not Attach Compendium, Do Not Delete/merge, 09/27/2019 10:01:36 09/27/19 20 09/27/2019 urina lysis , dipst ick Urobilinogen .2 Not Available In-Of fice Order Internal Use Only DO Not Attach Compendium DO Not Attach Compendium, Do Not Delete/merge, 09/27/2019 10:01:36 09/27/19 20 09/27/2019 urina lysis , dipst ick Protein Negati ve Not Available In-Office Order Internal Use Only DO Not Attach Compendium DO Not Attach Compendium, Do Not Delete/merge, 09/27/2019 10:01:36 09/27/19 20 09/27/2019 urina lysis , dipst ick pH 5.5 Not Available In-Office Order Internal Use Only DO Not Attach Compendium DO Not Attach Compendium, Do Not Delete/merge, 09/27/2019 10:01:36 09/27/19 20 09/27/2019 urina lysis , dipst ick Blood Small Not Available In-Office Order Internal Use Only DO Not Attach Compendium DO Not Attach Compendium, Do Not Delete/merge, 09/27/2019 10:01:36 09/27/19 20 09/27/2019 urina lysis , dipst ick Specific Marianna 1.030 Not Available In-Off ice Order Internal Use Only DO Not Attach Compendium DO Not Attach Compendium, Do Not Delete/merge, 09/27/2019 10:01:36 09/27/19 20 09/27/2019 urina lysis , dipst ick Ketone Negati ve Not Available In-Office Order Internal Use Only DO Not Attach Compendium DO Not Attach Compendium, Do Not Delete/merge, 09/27/2019 10:01:36 09/27/19 20 09/27/2019 urina lysis , dipst ick Bilirubin Negati ve Not Available In-Office Order Internal Use Only DO Not Attach Compendium DO Not Attach Compendium, Do Not Delete/merge, [id number] 09/27/2019 10:01:36 09/27/19 20 09/27/2019 urina lysis , dipst ick Glucose Negati ve Not Available In-Office Order Internal Use Only DO Not Attach Compendium DO Not Attach Compendium, Do Not Delete/merge, [id number] 09/27/2019 10:01:36 04/16/20 22 04/16/2022 IGP,A PTIMA HPV,A GE GDLN age gdln acog testing 30-65 Not Available [facility] ([facility]) [address] [facility], [place], [address], 04/23/2022 14:10:37 04/16/20 22 04/17/2022 IGP, APTIM A HPV, RFX 16/18 ,45 HPV aptima Negati ve negati ve This nucle ic acid ampli ficat ion test detec ts fourt een high- risk HPV types (16,1 8,31, 33,35 ,39,4 5,51, 52,56 ,58,5 9,66, 68) witho ut diffe renti ation . Not Available [facility] ([facility]) [address] [facility], [place], [address], 04/23/2022 14:10:38 04/16/20 22 04/23/2022 IGP, APTIM A HPV, RFX 16/18 ,45 diagnosis: Commen t NEGAT RASHEL FOR INTRA EPITH ELIAL LESIO N OR KELLY ORTEGA . Not Available [facility] ([facility]) [address] [facility], [place], [address], 04/23/2022 14:10:38 04/16/20 22 04/23/2022 IGP, APTIM A HPV, RFX 16/18 ,45 specimen adequacy: Commen t Satis facto ry for evalu ation . Endoc ervic al and/o r squam ous metap lasti c cells (endo cervi isabelle compo nent) are prese nt. Not Available [facility] ([facility]) [address] [facility], [place], [address], 04/23/2022 14:10:38 04/16/20 22 04/23/2022 IGP, APTIM A HPV, RFX 16/18 ,45 clinician provided ICD10: Juan A fonseca Z01.4 19 Not Available [facility] ([facility]) [address] [place], [address], 04/23/2022 14:10:38 04/16/20 22 04/23/2022 IGP, APTIM A HPV, RFX 16/18 ,45 performed by: Josselyn Freeman (ASCP ) Not Available [facility] ([facility]) [address] [facility], [place], [address], 04/23/2022 14:10:38 04/16/20 22 04/23/2022 IGP, APTIM A HPV, RFX 16/18 ,45 . . Not Available [facility] ([facility]) [address] [place], [address], 04/23/2022 14:10:38 04/16/20 22 04/23/2022 IGP, APTIM A HPV, RFX 16/18 ,45 note: Juan A fonseca The Pap smear is a scree anthony test desig elisa to aid in the detec tion of jyoti ligna nt and malig nant condi tions of the uteri ne cervi x. It is not a diagn ostic proce dure and shoul d not be used as the sole means of detec ting cervi isabelle cance r. Both false -posi tive and false -nega tive repor ts do occur . Not Available [facility] ([facility]) [address] [facility], [place], [address], 04/23/2022 14:10:38 04/16/20 22 04/23/2022 IGP, APTIM A HPV, RFX 16/18 ,45 test methodology: Commen t This liqui d based ThinP rep(R ) pap test was jenny pérez with the use of an image guide nirav potts Not Available [facility] ([facility]) [address] [facility], [place], [address], 04/23/2022 14:10:38 04/16/20 22 04/23/2022 IGP, APTIM A HPV, RFX 16/18 ,45 HPV genotype reflex Commen t Crite veda not met, HPV Genot ype not perfo rmed. Not Available [facility] ([facility]) [address] [facility], [place], [address], 04/23/2022 14:10:38 04/16/20 22 04/16/2022 pregn lore test, urine HCG negati ve Not Available In-Office Order Internal Use Only DO Not Attach Compendium DO Not Attach Compendium, Do Not Delete/merge, [id number] 04/16/2022 16:08:46 11/27/19 20 11/27/2019 US, freddie vasquez No observ ation record ed. [address] ([facility]) [address], [place], [address], 04/16/2022 16:27:24 Result Notes None recorded. 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 3 Active 2018 Musa phillips, [place] - [facility] 9 10:23:31 Polycysti c ovary syndrome 483602283 Active 2019 Musa [place]illips[place] [facility] 0 10:07:00 Anxiety 83909752 Active Mus[place] [facility] 6 12:07:25 Polycysti c ovaries Completed 09/27/2019 Mus[place] [facility] 0 10:07:05 Vaginitis 91715960 Active Musa [place] - [facility] 6 12:07:25 Vulvitis 35304380 Active Musa phillips, [facility] 6 12:07:25 Gastroeso phageal reflux disease 464414453 Active Musa phillips, [place] - [facility] 6 12:07:25 Bacterial vaginosis 224937316 Active Musa phillips, [facility] 6 12:07:25 Candidias is of vagina 82210324 Active Musa phillips, [facility] 6 12:07:25 Candidal vulvovagi nitis 16896455 Active Musa phillips, [facility] 6 12:07:25 Obesity 613555575 Completed 201609/27/2019 Musa phillips, [facility] 0 10:13:03 Problem Notes None recorded. Procedures Surgical History Date Name Laterality Status Provider Name and Address Organization Details Recorded Time 04/16/20 22 Date of Last Pap Smear completed Rose Marie Hawk MA [place] - [facility] 04/16/2022 15:45:07 06/23/19 20 Control Implant Removal completed BECKA PEREZ Attn: Accounting,[address] [place], [address], [facility] - [facility] 06/24/2019 16:55:45 03/29/20 19 Control Implant Insertion completed Shi Miels MA [place] - [facility] 03/29/2019 17:26:20 12/31/19 19 IUD Removal completed BECKA PEREZ Attn: Accounting[address] [place], [address], [facility] - [facility] 12/30/2018 14:04:47 07/26/19 19 IUD Insertion completed Rose Marie Hawk MA [place] - [facility] 07/25/2018 16:56:53 04/19/19 14 Orthopedic Surgery completed ARLETTE Harper [facility] 06/20/2014 11:36:23 04/19/19 14 Tonsillectomy completed ARLETTE Harper - [facility] 06/20/2014 11:36:23 Imaging Results Imaging Date Name Status LastModified by Organiz ation Details LastModified Time 11/27/2019 US, breast, bilateral completed [email or web address] (Imaging) [address], [place], [address], 04/16/2022 16:27:24 Procedure Notes None recorded. Medical Equipment None Reported. Allergies Allergen ID Allergen Name Allergen Category Reaction Reaction Severity Criticality Documentation Date Start Date Code Code System Note Provider Name and Address Organization Details Recorded Time [id number] Milk (substanc e) food,medi cation nausea mild Not available 06/20/2014 76063 002 SNOMED Not Available Not Available Not Available [id number] Zoloft medicatio n facial swelling Not available Not available 06/20/2014 68132 RxNorm Not Available Not Available Not Available Medications Name Sig Start Date Stop Date Status Note LastModified by Organization Details LastModified Time drug unknown active Not Available Not Available Not Available multivita min tablet Take 1 tablet every day by oral route. 04/16 completed Not Available Not Available Not Available Prometriu m 200 mg capsule active Not Available Not Available Not Available cyclobenz aprine 10 mg tablet active Not Available Not Available No t Available medroxypr ogesteron e 10 mg tablet Take 1 tablet every day x 10 days every month if amenorrh eic active Not Available Not Available No t Available buspirone 5 mg tablet 04/16 completed Not Available Not Available Not Available venlafaxi ne ER 37.5 mg capsule,e xtended release 24 hr active Not Available Not Available Not Available prednison e 10 mg tablet TAKE 1 TABLET BY MOUTH 3 TIMES DAILY X3 DAYS, 1 TAB 2 TIMES DAILY X2 DAYS, THEN 1 TAB DAILY X1 DAY 04/16 completed Not Available Not Available Not Available venlafaxi ne ER 75 mg capsule,e xtended release 24 hr active Not Available Not Available Not Available Prenatabs Rx 29 mg iron-1 mg tablet active Not Available Not Available Not Available cetirizin e 10 mg tablet Take 1 tablet every day by oral route. 04/16 completed Not Available Not Available Not Available Tab-A-Vit e tablet 04/16 completed Not Available Not Available Not Available azithromy justus 250 mg tablet TAKE 2 TABLETS (500 MG) BY ORAL ROUTE ONCE DAILY FOR 1 DAY THEN 1 TABLET (250 MG) BY ORAL ROUTE ONCE DAILY FOR 4 DAYS 05/30 completed Not Available Not Available Not Available ibuprofen 800 mg tablet Take 1 tablet by mouth three times daily as needed 04/16 completed Not Available Not Available Not Available fluconazo le 150 mg tablet Take 1 tablet by oral route. active Not Available Not Available No t Available hydrocodo ne 5 mg-acetam inophen 325 mg tablet active Not Available Not Available Not Available ondansetr on HCl 8 mg tablet active Not Available Not Available No t Available metronida zole 0.75 % (37.5 mg/5 gram) vaginal gel Insert 1 applicat orful every day by vaginal route at bedtime for 5 days. 11/15 completed Not Available Not Available Not Available spironola ctone 100 mg tablet Take 1 tablet twice a day by oral route. 04/16 completed Not Available Not Available Not Available sertralin e 100 mg tablet TAKE 2 TABLETS BY MOUTH EVERY DAY active Not Available Not Available No t Available simvastat in 10 mg tablet Take 1 tablet every day by oral route. active Not Available Not Available No t Available terconazo le 0.8 % vaginal cream Insert 1 applicat orful every day by vaginal route for 3 days. active Not Available Not Available No t Available penicilli n V potassium 500 mg tablet Take 1 tablet twice a day by oral route for 10 days. 11/15 completed Not Available Not Available Not Available metronida zole 500 mg tablet Take 1 tablet twice a day by oral route. 11/15 completed Not Available Not Available Not Available phentermi ne 37.5 mg tablet TAKE 1 TABLET BY MOUTH EVERY DAY active Not Available Not Available No t Available triamcino lone acetonide 0.1 % topical cream APPLY A THIN LAYER OF CREAM EXTERNAL LY TO AFFECTED AREA TWICE DAILY 04/16 completed Not Available Not Available Not Available Vitamin tablet Take 1 tablet every day by oral route as directed . 03/22 completed Not Available Not Available Not Available alprazola m 0.5 mg tablet TAKE 1 TABLET BY MOUTH THREE TIMES A DAY active Not Available Not Available No t Available simvastat in 20 mg tablet Take 1 tablet every day by oral route. 07/25 completed Not Available Not Available Not Available metformin 1,000 mg tablet Take 1 tablet twice a day by oral route. 07/25 completed Not Available Not Available Not Available nystatin 100,000 unit/gram topical cream APPLY TO THE AFFECTED AREA(S) BY TOPICAL ROUTE 2 TIMES PER DAY active Not Available Not Available No t Available ranitidin e 150 mg tablet Take 1 tablet every day by oral route as needed for 30 days. 03/22 completed Not Available Not Available Not Available buspirone 10 mg tablet TAKE 1 TABLET BY MOUTH THREE TIMES A DAY active Not Available Not Available No t Available lidocaine 5 % topical patch APPLY 3 PATCHES ONTO THE SKIN ONCE DAILY. LEAVE ON FOR UP TO 12 HOURS active Not Available Not Available No t Available diclofena c sodium 75 mg tablet,de layed release active Not Available Not Available Not Available letrozole 2.5 mg tablet TAKE 3 TABLETS BY MOUTH DAILY X5 DAYS 04/16 completed Not Available Not Available Not Available zolpidem 10 mg tablet 08/12 completed Not Available Not Available Not Available albuterol sulfate HFA 90 mcg/actua tion aerosol inhaler Inhale 1 puff twice a day by inhalati on route. 04/16 completed Not Available Not Available Not Available glyburide 1.25 mg tablet Take 1 tablet twice a day by oral route. 04/16 completed Not Available Not Available Not Available metformin ER 500 mg tablet,ex tended release 24 hr 03/22 completed Not Available Not Available Not Available sertralin e 50 mg tablet Take 1 tablet every day by oral route. 04/16 completed Not Available Not Available Not Available hydroxyzi ne pamoate 25 mg capsule TAKE 1 CAPSULE BY MOUTH 4 TIMES DAILY NEEDED. active Not Available Not Available No t Available Sprintec (28) 0.25 mg-35 mcg tablet active Not Available Not Available Not Available bupropion HCl XL 300 mg 24 hr tablet, extended release Take 1 tablet every day by oral route for 30 days. 03/22 completed Not Available Not Available Not Available bupropion HCl XL 150 mg 24 hr tablet, extended release 03/22 completed Not Available Not Available Not Available Prenatabs FA 29 mg-1 mg tablet 03/22 completed Not Available Not Available Not Available RepHresh vaginal gel Insert 1 g as needed by vaginal route. 03/22 completed Not Available Not Available Not Available Jolessa 0.15 mg-30 mcg (91) tablets,3 month dose pack Take 1 tablet every day by oral route. 07/25 completed Not Available Not Available Not Available calcium 600 mg (as carbonate )-vitamin D3 10 mcg (400 unit) tablet Take 1 tablet twice a day by oral route. 04/16 completed Not Available Not Available Not Available Nexplanon 68 mg subdermal implant Inject 1 implant by subcutan eous route. 09/26 completed Not Available Not Available Not Available 28 mg iron-800 mcg tablet TAKE 1 TABLET BY MOUTH EVERY DAY active Not Available Not Available No t Available vits 96-ferrou s fumarate 27 mg iron-foli c acid 800 mcg tablet 03/22 completed Not Available Not Available Not Available calcium 600 mg (as carbonate )-vitamin D3 20 mcg (800 unit) tablet Take 1 tablet twice a day by oral route for 30 days. 05/30 completed Not Available Not Available Not Available Gildess 05/08 (21) 1 mg-20 mcg tablet Take 1 tablet every day by oral route. 08/12 completed Not Available Not Available Not Available Classic 28 mg iron-800 mcg tablet 04/16 completed Not Available Not Available Not Available calcium 200 mg (as phosphate )-vit D3 5 mcg (200 unit) chewable tablet Take 3 tablets every day by oral route. 11/15 completed Not Available Not Available Not Available Gummy 400 mcg-35 mg-25 mg-5 mg chewable tablet Take 1 tablet every day by oral route. 04/16 completed Not Available Not Available Not Available Contrave 8 mg-90 mg tablet,ex tended release Take 2 tablets twice a day by oral route. 03/22 completed 340B Program PATTERN [employer]ER Not Available Not Available Not Available Kyleena 17.5 mcg/24 hr (up to 5 years) 19.5 mg intrauter ine device Take 1 device by intraute rine route. 12/30 completed Not Available Not Available Not Available Tab-A-Vit e 400 mcg tablet TAKE 1 TABLET BY MOUTH ONCE DAILY 04/16 completed Not Available Not Available Not Available Vitals Date Recorded Body height Provider Name an d Address Organization Details Last Updated DateTime 05/30/2019 165.1 cm Rose Marie Hawk MA [facility] 2019 15:29:14 Date Recorded Body mass index (BMI) Body weight Provider Name and Address Organization Details Last Updated DateTime 05/30/2019 52.8 kg/m2 049386.78 g Rose Marie Hawk MA [facility] 05/30/2019 15:29:20 Date Recorded Body height Provider Name an d Address Organization Details Last Updated DateTime 06/23/2019 165.1 cm Rose Marie Hawk [place] [facility] 2019 11:16:59 Date Recorded Body mass index (BMI) Body weight Provider Name and Address Organization Details Last Updated DateTime 06/23/2019 53.1 kg/m2 321057.97 g Rose Marie Hawk MA [facility] 06/23/2019 11:17:16 Date Recorded Body height Provider Name an d Address Organization Details Last Updated DateTime 09/27/2019 165.1 cm Kaley sun MA [facility] 09/27/2019 09:53:58 Date Recorded Body mass index (BMI) Body weight Provider Name and Address Organization Details Last Updated DateTime 09/27/2019 53.6 kg/m2 196231.74 g Kaley Butler MA [facility] 09/27/2019 09:54:07 Date Recorded Body height Provider Name an d Address Organization Details Last Updated DateTime 11/03/2019 165.1 cm Kaley sun MA [facility] 11/03/2019 13:08:28 Date Recorded Body mass index (BMI) Body weight Provider Name and Address Organization Details Last Updated DateTime 11/03/2019 52.8 kg/m2 369489.78 charli Kaley Butler MA [facility] 11/03/2019 13:08:39 Date Recorded Heart rate Provider Name an d Address Organization Details Last Updated DateTime 11/03/2019 112 /min Kaley sun MA [facility] 11/03/2019 13:10:26 Date Recorded Oxygen saturation Oxygen saturation in Arterial blood by Pulse oximetry Provider Name and Address Organization Details Last Updated DateTime 11/03/2019 99 % 99 % Kaley Butler MA [facility] 11/03/2019 13:10:29 Date Recorded Body temperature Provider Name a nd Address Organization Details Last Updated DateTime 11/03/2019 98.3 [degF] Kaley sun MA [facility] 11/03/2019 13:10:51 Date Recorded Body height Provider Name an d Address Organization Details Last Updated DateTime 04/16/2022 165.1 cm Rose Marie Hawk MA [facility] 2021 16:00:14 Date Recorded Body mass index (BMI) Body weight Provider Name and Address Organization Details Last Updated DateTime 04/16/2022 52.1 kg/m2 969098.41 g Rose Marie Hawk MA [facility] 04/16/2022 16:00:16 Date Recorded Systolic blood pressure Diastolic blood pressure Provider Name and Address Organization Details Last Updated DateTime 05/30/2019 112 mm[Hg] 86 mm[Hg] Rose Marie Hawk MA [facility] 05/30/2019 15:32:19 Date Recorded Systolic blood pressure Diastolic blood pressure Provider Name and Address Organization Details Last Updated DateTime 06/23/2019 104 mm[Hg] 68 mm[Hg] Rose Marie Hawk MA [facility] 06/23/2019 11:21:01 Date Recorded Systolic blood pressure Diastolic blood pressure Provider Name and Address Organization Details Last Updated DateTime 09/27/2019 110 mm[Hg] 70 mm[Hg] Kaley Butler MA [facility] 09/27/2019 09:55:53 Date Recorded Systolic blood pressure Diastolic blood pressure Provider Name and Address Organization Details Last Updated DateTime 11/03/2019 122 mm[Hg] 82 mm[Hg] Kaley Butler MA [facility] 11/03/2019 13:10:15 Date Recorded Systolic blood pressure Diastolic blood pressure Provider Name and Address Organization Details Last Updated DateTime 04/16/2022 116 mm[Hg] 80 mm[Hg] Rose Marie Hawk MA [facility] 04/16/2022 16:07:29 Social History Question Answer Notes LastModified by Organizat ion Details LastModified Time Tobacco Smoking Status Never Smoker Alaina Briseno, ARLETTE [facility] [place] - [facility] 06/20/2014 11:36:24 Do You Have An Advance Directive? No Information not available 06/20/2014 What Is Your Level Of Alcohol Consumption? Occasional Information not available 06/20/2014 Is Blood Transfusion Acceptable In An Emergency? Yes Information not available 06/20/2014 What Is Your Level Of Caffeine Consumption? Moderate Soda Information not available 07/25/2018 How Much Tobacco Do You Chew? None Information not available 06/20/2014 Are You Currently Employed? No Information not available 06/20/2014 What Type Of Diet Are You Following? REGULAR Information not available 06/20/2014 Which Illicit Or Recreational Drugs Have You Used? None Information not available 06/20/2014 Do You Or Have You Ever Used E-cigarettes Or Vape? Never Used Electronic Cigarettes [email or web address] Information not available 03/29/2019 Education 2 Year College Informatio n not available 06/20/2014 What Is Your Occupation? [employer] Information not available 04/16/2022 Live Alone Or With Others? With Others Information not available 04/16/2022 What Was The Date Of Your Most Recent Tobacco Screening? 04/16/2022 Information not available 04/16/2022 How Many Children Do You Have? 0 Information not available 06/20/2014 Performs Monthly Self-breast Exam? Yes Information no t available 07/25/2018 Do You Use Protection During Sex? No Information not available 07/25/2018 What Is Your Relationship Status? Information not available 04/16/2022 Seat Belts Used Routinely Yes Information not available 06/20/2014 Are You Sexually Active? Yes Information not available 06/20/2014 Do You Have Smoke And Carbon Monoxide Detectors In Your Home? Yes Information not available 04/16/2022 Are You Passively Exposed To Smoke? No Information no t available 04/16/2022 Do You Or Have You Ever Used Smokeless Tobacco? Never Used Smokeless Tobacco [email or web address] Information not available 03/29/2019 How Much Tobacco Do You Smoke? No [email or web address] Information not available 01/16/2016 General Stress Level Medium Information not available 07/25/2018 Do You Use Any Illicit Or Recreational Drugs? No Information not available 04/16/2022 Do You Use Sunscreen Routinely? Yes Information not available 07/25/2018 Has Tobacco Cessation Counseling Been Provided? No Information not available 04/16/2022 On What Date Was Tobacco Cessation Counseling Provided? 04/16/2022 Information not available 04/16/2022 How Many Years Have You Smoked Tobacco? 0 [email or web address] Information not available 05/30/2019 Do You Or Have You Ever Used Any Other Forms Of Tobacco Or Nicotine? No Information not available 04/16/2022 Sex: Unknown Functional Status Question Answer Note LastModified by Organization D etails LastModified Time What is your exercise level? None Information not available 07/25/2018 Mental Status None recorded. Family History Nothing Reported Notes:Brother 23 - central sleep apnea, ADHD, mitral valve prolapse Father, 54 living - blood clots Mother 57 living - depression PGM 70s of leukemia. Maternal grandmother also with hx of leukemia. Medical History Condition Response Heart Problems N Other N High Blood Pressure N Breast Cancer N Thyroid Problems N Kidney or Bladder Problems N GI Problems N Lung Disease N Depression N Blood Clots N Acne N Eating Disorder N Breast Problem N Anemia N Anesthesia Complications N Headaches/Migraines N Anxiety Disorder Y Diabetes N Ovarian Cancer N Muscle, Joint, or Bone Problems N Blood Transfusions N Arthritis N Seizures/Epilepsy N Polyps N Infertility N Acid Reflux (GERD) Y Cancer N Stroke N Abuse/Domestic Violence N Asthma N Endometriosis N High Cholesterol N Hepatitis N Liver Disease N Heart Disease N Fibromyalgia N Pre-Eclampsia N Hypertension N Osteoporosis N Kidney Disease N Gynecological History Statement/Question Response Abnormal Pap N Date of LMP 07/11/2021 STIs/STDs Yes HPV Vaccine Y Age at Menarche 13 Current Control Method Seeking Pre gnancy Frequency of Cycle (Q days) Sexually Active? Y Menses Monthly N Date of Last Pap Smear 04/16/2022 Sexual Problems? N LMP Approximate Desired Control Method Implant Obstetrics History GPAL:G 0 P 0 0 0 0 Type Value Multiple Births 0 Full Term 0 Induced 0 Spontaneous 0 Premature 0 Living 0 Ectopics 0 Total 0 Immunizations Vaccine Type Date Status Note Provider Nam e and Address Organization Details Recorded Time Influenza, split virus, quadrivalent, preservative 6 completed Not Available [facility] 05/06/2019 02:32:32 Influenza, split virus, quadrivalent, preservative 8 completed Not Available [facility] 05/06/2019 02:36:57 Influenza, split virus, quadrivalent, preservative 2 completed BECKA PEREZ Attn: Accounting[address] [place], [address], [facility] 05/05/2022 13:36:05 HPV, quadrivalent 5 completed Not Available [facility] 05/06/2019 02:30:42 Hep A-Hep B 5 completed Not Available [facility] 05/06/2019 02:30:51 Past Encounters Encounter ID Performer Location Encounter Start Date Encounter Closed Date Diagnosis/Indication Diagnosis SNOMED-CT Code Diagnosis ICD10 Code Diagnosis Note [id number] Musa Brito (LE[employer]GRAM[employer]NALY[employer]) [address] [place] [address] [id number] 0 06/20/2014 10:31:35 06/20/2014 12:11:13 Gynecologic examination 05152768 Polycystic ovaries 86453964 [id number] Musa Brito [facility] (LEAD PROGRAMMER ANALYST) [address] [place] [address] [id number] 0 02/26/2015 10:37:08 02/26/2015 13:10:30 Gynecologic examination 06768763 Z01.419 Vaginitis 11210700 N76.0 Vulvitis 77848363 N76.2 Polycystic ovaries 80928 008 E28.2 Active or passive immunization 310000266 Z23 Gastroesop hageal reflux disease 083485332 K21.9 [id number] ARLETTE Harper (LEAD PROGRAMMER ANALYST) [address] [place] [address] [id number] 0 07/31/2015 10:27:24 07/31/2015 15:03:29 Polycystic ovaries 61117609 E28.2 Venereal d isease screening 153302717 Z11.3 Candidal vulvovaginitis 12331538 B37.3 [id number] Musa Brito (LEAD PROGRAMMER ANALYST) [address] [place] [address] [id number] 0 01/16/2016 11:24:13 01/16/2016 15:33:16 Polycystic ovaries 04685699 E28.2 cervical stenosis Active or passive immunization 118097670 Z23 [id number] [facility]a [facility]ratik [facility] (LEAD PROGRAMMER ANALYST) [address] [place] [address] [id number] 0 08/12/2016 11:01:25 08/13/2016 15:14:05 Polycystic ovaries 34054489 E28.2 Family jennifer nning surveillance 113643054 Z30.09 Obesity 541653387 E66.9 [id number] ARLETTE Rodriguez (LEAD PROGRAMMER ANALYST) [address] [place] [address] [id number] 0 03/22/2018 10:17:29 03/22/2018 11:54:20 Polycystic ovaries 19290173 E28.2 Family jennifer nning surveillance 876234460 Z30.09 Primary infertility 2971 44814 N97.0 Gynecologi c examination 32438956 Z01.419 Z11.51 Exposure t o sexually transmissible disorder 631516068 Z20.2 Administra tion of influenza vaccine 00131558 Z23 [id number] Musa Brito (LEAD PROGRAMMER ANALYST) [address] [place] [address] [id number] 0 05/26/2018 15:11:55 05/27/2018 15:21:29 Family planning surveillance 963676347 Z30.09 Obesity 235301452 Z68.43 Polycystic ovaries 05919 008 E28.2 [id number] ARLETTE Guevara (LEAD PROGRAMMER ANALYST) [address] [place] [address] [id number] 0 07/25/2018 16:00:40 07/26/2018 11:47:21 Insertion of intrauterine contraceptive device 86302927 Z30.430 Polycystic ovaries 19203 008 E28.2 Obesity 363565532 Z68.43 Family jennifer nning surveillance 880076962 Z30.09 Exposure t o sexually transmissible disorder 072587798 Z20.2 Anxiety 43970828 F41.9 [id number] Musa Brito [facility] (LEAD PROGRAMMER ANALYST) [address] [place] [address] [id number] 0 09/26/2018 16:00:00 09/28/2018 13:03:16 Family planning surveillance 717448009 Z30.09 Generalize d anxiety disorder 70774027 F41.[address] Brendan Mesa [id number] Musa Brito [facility] (LEAD PROGRAMMER ANALYST) [address] [place] [address] [id number] 0 11/15/2018 14:21:14 11/17/2018 12:55:01 Surveillance of intrauterine device contraception done 1084306093 28655 Z30.40 At increas ed risk of sexually transmitted infection 630573807 Z20.2 Family jennifer nning surveillance 706532118 Z30.09 [id number] BECKA PEREZ HC (LEAD PROGRAMMER ANALYST) [address] [place] [address] [id number] 0 12/30/2018 11:33:11 01/02/2019 11:57:38 Family planning surveillance 166411747 Z30.09 Discussed different BC options with pt. She would like to try Nexplanon. Pt to return to clinic next week for insertion. Removal of intrauterine device 53653849 Z30.175 [id number] ARLETTE Rodriguez (LEAD PROGRAMMER ANALYST) [address] [place] [address] [id number] 0 03/29/2019 16:42:40 03/30/2019 10:25:17 Insertion of subcutaneous contraceptive 479578812 Z30.9 At increas ed risk of sexually transmitted infection 415375420 Z20.2 Upper resp iratory infection 24946868 J06.9 Family jennifer nning surveillance 464704477 Z30.09 [id number] Musa Brito HC (LEAD PROGRAMMER ANALYST) [address] [place] [address] [id number] 0 05/30/2019 14:46:02 05/31/2019 10:05:42 Subcutaneous contraceptive implant palpable 728687854 Z30.46 At increas ed risk of sexually transmitted infection 377354307 Z20.2 Family jennifer nning surveillance 662710225 Z30.09 [id number] BECKA PEREZ (LEAD PROGRAMMER ANALYST) [address] [place] [address] [id number] 0 06/23/2019 10:40:57 06/23/2019 13:02:27 Removal of subcutaneous contraceptive 239221361 Z30.46 Advised return to fertility within 1-2 weeks. Polycystic ovary syndrome 108436591 E28.2 Reproducti ve care management 218060741 Z31.9 She is a patient of Dr. Irwin and has previously had fertility workup. H/o of PCOS. Advised metformin but pt refuses due to side effects. Counseled pt on starting to track cycles and checking for ovulation with OTC kit. Advised weight loss, maintainin g healthy diet, and exercise. Start prenatals. RTC in 3 months to review cycles. With h/o of abnormal cycles and anovulatio n, pt will likely require clomid or letrozole therapy and referral to reproducti ve endocrinol ogy. Body mass index 40+ - severely obese 518599628 Z68.43 [id number] Musa Brito (LEAD PROGRAMMER ANALYST) [address] [place] [address] [id number] 0 09/27/2019 09:34:41 09/28/2019 08:08:37 Family planning surveillance 013136718 Z30.09 Polycystic ovary syndrome 162006312 E28.2 failed medical management Morbid obesity 767537095 E66.01 BMI 53.6 Polycystic ovaries 35601 008 E28.2 [id number] BECKA PEREZ (LEAD PROGRAMMER ANALYST) [address] [place] [address] [id number] 0 11/03/2019 12:40:23 11/06/2019 10:33:31 Mastodynia of bilateral breasts 6204222131 8895511 N64.4 Right nipple with abnormal tenderness , otherwise unremarkab le exam. Reassured patient that some tenderness is normal with hormonal changes. Advised supportive bra (without underwire) , OTC ibu as needed, warm compresses , low fat diet. Pt requests imaging, f/u US. [id number] BECKA PEREZ (LEAD PROGRAMMER ANALYST) [address] [place] [address] [id number] 0 04/16/2022 15:32:19 04/21/2022 16:08:52 Gynecologic examination 33288523 Z01.419 Cervical cancer screening: Last Pap 03/22/2018 JALYN, updated todayPau fonseca cancer screening: Reviewed recommenda tions for initiation at age 40 with annual screening. Discussed SBESTI screening: declinedCo ntraceptio n: not practicedD iet/exerci se: Counseled regarding importance of physical activity, healthy diet and appropriat e calcium intake. Polycystic ovary syndrome 981000808 E28.2 Following with fertility specialist . Has been amenorrhei c since June 2021. Long discussion on PCOS and increased risk for endometria l cancer with prolonged amenorrhea . Will send Provera for patient to induce bleeding for endometria l protection . She does not wish to be on control at this time due to TTC. Morbid obesity 300969747 E66.01 BMI 52.1. Pt has questions about Ozempic. Counseled pt on weight loss medication s and their side effects. Recommende d she follow up with PCP for these since she is already taking phentermin e per PCP. Recommende d daily exercise with a goal of 150 min/week of moderate-s trenuous activity and a balanced diet with an emphasis on fruits, vegetables , whole grains, legumes, lean protein, and mono/polyu nsaturated fats. Administra tion of influenza vaccine 50870196 Z23 Annual flu shot requested. Health Concerns Section Related Observation LastModified by Organization Detai ls LastModified Time None Recorded Concern Status LastModified by Organization Details LastModified Time None Recorded Advance Directives Directive N: Payers Encounter Date Sequence Insurance Name Policy Number Policy Mahan Covered Member ID Mahan Member ID Guarantor Name 05/30/2019 2 [facility] (MEDICAID HMO) [id number] Haven Joe [id number] Haven Tonya 06/23/2019 2 [facility] (MEDICAID HMO) [id number] Haven Diaz [id number] Haven [place] 09/27/2019 2 [facility] (MEDICAID HMO) [id number] Haven Joe [id number] Haven [place] 11/03/2019 2 [facility] (MEDICAID HMO) [id number] Haven Joe [id number] Haven Tonya 04/16/2022 2 [facility] (MEDICAID HMO) [id number] Haven Diaz [id number] Haven Castaneda 04/16/2022 1 [facility]: (PPO) [id number] Beni Castaneda [id number] Haven Castaneda Notes Date Note Type Note Provider Name and Address Organization Details Recorded Time 0 text/html OB ProblemReported bypatient.Associated Symptoms:no abdominal pain; no contractions; normal movement; no bleeding; no ROM; no vaginal/vulvar itching or irritation; no dysuria; no frequency; no urgency; no hematuria; no fever; no nausea; no emesis; no constipation; no diarrhea/loose stool; no edema; no visual changes; no headache; no dizziness;cramping;vagin al discharge; brown 28yo G0 female with hx of PCOS and anxiety presents for Nexplanon check after placement 04/07/2019. Nexplanon not causing any pain. Complains of uterine cramping and brown discharge x 1 month. Musa Irwin [facility] [place] [facility] 05/30/2019 16:58:41 0 text/html Abnormal BleedingReported bypatient.Onset/Timing:p ast 3-5 cycles Duration:10-15 days/month Quality:moderate 28yo F with h/o PCOS and anxiety presents for evaluation of abnormal bleeding from Nexplanon and to discuss possible removal. Pt had implant placed in March 2019 and has been experiencing spotting, cramping, and fatigue ever since. Reports this is affecting her energy and relationship with fiance. She denies f/n/v, headache, dizziness, urinary symptoms, and constipation. Pt uninterested in another form of contraceptive. She states she is getting in October and should would like to start trying to conceive. BECKA PEREZ Attn: Accounting[address] [place], [address], [facility] 06/26/2019 16:54:22 0 text/html InfertilityReported bypatient.Duration:tryin g to conceive for >1 year Context:menstrual cycles regular/monthly;menses irregular; no history of STD/pelvic infection; no past IUD use; no history of endometriosis; no fibroids; no abdominal surgery; no prior infertility; no prior infertility; no sexual dysfunction; no recurrent miscarriage; no history of thyroid dysfunction; no family history of congenital anomalies/chromosomal abnormalities/genetic disorders; history of chicken pox;history of PCO Associated Symptoms:no pelvic pain; no abdominal pain; no dyspareunia; no abnormal bleeding; no premenstrual symptoms 28yo G0 female with hx of PCOS and anxiety presents after Nexplanon removed wants to get Musa phillips, [facility] 09/27/2019 11:03:22 0 text/html Breast PainReported bypatient.Location:bilat eral; at the nipple Onset/Timin-2 weeks Quality:sharp; burning; generalized Severity:mild Context:menstruating Associated Symptoms:no fever; no chills; no skin redness; no nipple discharge; no breast swelling; no arm pain; no arm swelling; no chest pain; no malaise; no breast lump;sore nipples; white skin changes 29 yo WF with a history of PCOS, obesity, and MICHELLE presents for evaluation of bilateral breast pain x 1 week. Patient states pain is sharp, burning, and that breasts are extremely sensitive. Patient reports that nipples are white; more so on right side. Patient states she tried ibuprofen 800mg with minimal relief. Patient states pain is worse at night. She denies masses, nipple discharge, swelling, n/v/f. Patient has a maternal aunt with a history of breast CA, recently diagnosed at Stage IV. BECKA PEREZ Attn: Accounting[address] [place], [address], [facility] 11/06/2019 09:31:54 2 text/html Annual GYNReported bypatient.History:no gynecologic complaints; planning in the near future Menstrual cycle:Irregular cycle intervals(LMP June 2021) Urinary symptoms:No hematuria; No incontinence Vulva:No genital lesion Vagina:Normal vaginal discharge Breast:No breast pain; No breast lump; No nipple discharge Current Contraception:Monogamous relationship; control not practiced Sexual complaints:No sexual complaints; No pain during intercourse; Normal libido Menopausal Symptoms:No menopausal symptoms; Normal vaginal lubrication Psychological symptoms:No depression; No anxiety; No PMDD Preventive measures:Encourage self breast examination; Encourage regular exercise; Encourage no tobacco use; Encourage regular mammograms starting age [age]yo G0 F with h/o PCOS and morbid obesity who presents for annual wwe/pap. She has been following fertility specialist but has recently stopped TTC. She states specialist told her that she needed to lose weight and has questions regarding weight loss medications. She is currently on phentermine per PCP. She has been amenorrheic since June 2021. BECKA PEREZ Attn: Accounting[address] [place], [address], [facility] 05/05/2022 13:43:59 OBGyn Episode No OBEpisode recorded.
--- OUTSIDE RECORDS SUMMARY | 2024-05-17 13:00 | XMS_ITS | Referral Summary ---
Author Organization [facility] Address [address] [place] [address] Care Team Providers Care Key Filer Name Role Phone Fredy Ellington MD Primary Care Provider [phone] Allergies Active Allergy Reactions Criticality Noted Date [...] Female infertility 09/22/2022 Polycystic ovarian syndrome 06/19/2021 Social History Tobacco Use Types Packs/Day Years Used Date Smoking Tobacco: Never Alcohol Use Standard Drinks/Week Comments No 0 (1 standard drink = 0.6 oz pur e alcohol) Personal Safety Answer Date Recorded Getting School Help Needed Not on file 05/22 Comments Unknown Sex and Gender Information Value Date Recorded Sex Assigned at Not on file Legal Sex 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
--- OUTSIDE RECORDS SUMMARY | 2024-05-17 13:00 | XMS_ITS ---
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 Medications Medication SIG (Take, Route, Frequency, Duration) Notes Start Date End Date Status busPIRone HCl 10 MG 1 tablet Orally Twice a day Active Lunesta 3 MG 1 tablet immediately before bedtime Orally Once a day 12/24/2023 Active ALPRAZolam 0.5 MG 1 tablet Orally PRN 12/24/2023 Active Zepbound 2.5 MG/0.5ML 0.5 mL Subcutaneous 12/24/19 24 Active + Complete Multi 18-0.8 & 290 MG as directed Orally 12/24/2023 Active Berberine Complex 200-200-50 MG as directed Orally 12/24/2023 Active Fish Oil 1000 MG 1 capsule Orally Thr ee times a day 12/24/2023 Active Sertraline HCl 100 MG 1 tablet Orally Once a day Active Social History Tobacco Control (Standard) Question Answer Notes Additional Findings: Tobacco user e-cigarette Procedures Procedure Date Ordered Date Performed Result Body Sit e ESOPHAGOGASTRODUODENOSCOPY 12/23/2023 N/A Encounters Encounter Location Date Provider Diagnosis [facility] [address] [facility] [address] [place] [address] 12/23/2023 Chirag Storey Gastro-esophageal reflux disease without esophagitis K21.9 ; Body mass index [BMI] 45.0-49.9, adult Z68.42 and Nicotine dependence unspecified, with withdrawal F17.203 Assessments Encounter Date Diagnosis (ICD Code) Assessment Notes Treatment Notes Treatment Clinical Notes Section Notes 12/23/2023 Gastro-esophagea l reflux disease without esophagitis (ICD-10 - K21.9) 12/23/2023 Body mass index [BMI] 45.0-49.9, adult (ICD-10 - Z68.42) 12/23/2023 Nicotine dependence unspecified, with withdrawal (ICD-10 - F17.203) Plan Of Treatment Pending Test Test Name Order Date ESOPHAGOGASTRODUODENOSCOPY 12/23/2023 NICOTINE AND COTININE, URINE ([id number]) 08/2023 Procedure Notes * Category Sub-Category Detail Notes SURGICAL PLAN Consults: Consult gissell vanegas nutrition for: 2 months of preoperative supervised diets, consult bariatric psychology, consult primary care physician for medical clearance/recommendation, consult anesthesia/PACE clinic for preoperative clearance Diagnostic Tests: Test: CBC, CMP, Lipi d Panel, LFTs, Thyroid, Function, Vit B-1, Vit B-12, Iron Levels, H.Pylori, CXR, EKG, Coloniscopy, EGD, UGI Surgical Procedure: 1. Laparoscopic: Sle irene Gastrectomy, Will decide on a definitive procedure after thorough preoperative work-up, undefined . I have use an anatomical chart to show the postsurgical changes that occur. I discussed expected weight loss and about common early & late complications associated with the procedure; including, but not limited to, leaks, strictures, bleeding, infection, hernia, and small bowel obstructions. Discussed dumping syndrome in detail & how dietary choices can worsen this. I discussed the need for postoperative vitamins lifelong. I have discussed postsurgical follow-up. I discussed the need for supervised bariatric nutrition prior to surgery as well as mental health evaluation. 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 (in pounds)?150.?Diet History: previous diet attempts (_select all that apply)?Medication: Phentramine,Diet and Exercise.?Eating Behaviors: I tend to eat (_select all that apply)?Fast Food,Large Portions,Frequent Snacking.?What is your typical eating pattern for lunch??No lunch.?What is your typical eating pattern for dinner??HelloFresh meals.?What is your typical eating pattern when snacking?Oatmeal cream pies or chocolate.?What is your typical eating pattern when drinking beverages??Soda or. Water.?What is your typical eating pattern for breakfast??Nothing or overnight oats with protein powder.?BARIATRIC HISTORY AND PHYSICAL?Patient is a very pleasant adult who presents with complaints of morbid obesity with significant comorbidities despite multiple failed attempts at weight loss through dietary & exercise programs. Her weight is severely limiting her physical activity & overall lifestyle. She has been obese for several years?. ?They are interested in learning about possible surgical options to help their fight against obesity. Aforementioned attempts at weight loss have included a variety of exercise routines, exercise videos, low-fat/low-calorie diets, and commercial weight loss programs, such as Weight Watchers?. ?Patient?does complain of food-related gastroesophageal reflux ?and patient?denies dysphagia. ?OBESITY-RELATED COMORBIDITIES:?Gastroesophageal Reflux disease (GERD),Back Pain,Arthritis,Polycystic ovarian syndrome (PCOS) ?Tobacco Counseling:?Patient?was counseled to discontinue tobacco/nicotine use. * ROS:?General / Constitutional:?Patient:??denies chills, fever, unexpected weight loss, weakness.?HEENT:?Patient:?denies double vision, hearing loss, epistaxis, sore throat.?Endocrine:?Patient:?denies cold intolerance, heat intolerance, flushing, fingernail changes, increased thirst, increased salt intake, decreased sexual desire.?Respiratory:?Patient:??denies cough,?waking at night coughing or choking, repeated pneumonias, wheezing, or night sweats.?Cardiovascular:?Patient:?denies chest pain, irregular heart beats, shortness of breath, or syncope.Endorses dyspnea on exertion.?Gastrointestinal:?Patient:?denies blood in stool, constipation, diarrhea, regurgitation, nausea and vomiting, frequent belching, black tarry stools, or?hemorrhoids.?Hematology:?Patient:?denies easy bruising, bleeding.?Genitourinary:?Patient:?denies pain or burning with urination, blood in the urine.?Musculoskeletal:?Patient:?denies arm, buttock, thigh or calf cramps.Endorses joint pain and back pain.?Skin:?Patient:?denies easy bruising, skin redness, skin rash, hives.?Neurologic:?Patient:??denies?headache, dizziness, fainting, muscle spasm, loss of consciousness, sensitivity or pain in the hands and feet, memory loss.?Psychiatric:?Patient:?denies depression, anxiety, suicidal thoughts, homicidal thoughts.?Immunological::?Patient:?? denies tuberculosis, hepatitis, HIV/AIDS.? * Medical History:? * Surgical History:?No Surgica l History documented. * Hospitalization/Major Diagno stic Procedure:? * Social History:?Tobacco Use:?Migrated Social History:?Migrated Social History: Vapes. * Medications:?TakingFish Oil 1000 MG Capsule 1 capsule Orally Three times a day Berberine Complex 200-200-50 MG Capsule as directed Orally + Complete Multi 18-0.8 & 290 MG Therapy Pack as directed Orally Zepbound 2.5 MG/0.5ML Solution Auto-injector 0.5 mL Subcutaneous ALPRAZolam 0.5 MG Tablet 1 tablet Orally PRN Lunesta 3 MG Tablet 1 tablet immediately before bedtime Orally Once a day busPIRone HCl 10 MG Tablet 1 tablet Orally Twice a day Sertraline HCl 100 MG Tablet 1 tablet Orally Once a day Taking Fish Oil 1000 MG Capsule 1 capsule Orally Three times a day Taking Berberine Complex 200-200-50 MG Capsule as directed Orally Taking + Complete Multi 18-0.8 & 290 MG Therapy Pack as directed Orally Taking Zepbound 2.5 MG/0.5ML Solution Auto-injector 0.5 mL Subcutaneous Taking ALPRAZolam 0.5 MG Tablet 1 tablet Orally PRN Taking Lunesta 3 MG Tablet 1 tablet immediately before bedtime Orally Once a day Taking busPIRone HCl 10 MG Tablet 1 tablet Orally Twice a day Taking Sertraline HCl 100 MG Tablet 1 tablet Orally Once a day * Allergies:?N.K.D.A.no[Allerg ies Verified] Objective: * Vitals:? * Examination: ???Physical Exam: ?General Appearance:?Obese adult who is?alert, in no acute distress.?Eyes:?Conjunctivae clear, sclerae normal without icterus, pupils equal, round, reactive to light and accommodation.?Ears/Nose/Mouth/Throat:?External ears normal, canals clear, TM's normal, Nares normal, Septum midline, Mucosa normal, No drainage or sinus tenderness, Lips, mucosa, and tongue normal, teeth and gums normal, oropharynx normal.?Neck:?Supple, no adenopathy. Trachea midline and?thyroid symmetric,?no JVD or bruits.?Respiratory:?Clear to auscultation bilaterally, breathing comfortably on room air.?Cardiovascular:?Regular rate and rhythm, distal pulses intact bilaterally.?Abdomen:?Soft, non-tender, non-distended, obese.?Lymph Nodes:?No cervical lymphadenopathy.?Musculoskeletal:?Spine range of motion normal, Muscular strength intact, No joint swelling, deformity or tenderness.?Skin:?No rashes or lesions noted.?Neurological:?Mental status intact, CNII-XII intact, speech is clear and fluent.?Psychiatric:?A&O x3, judgement/insight appropriate.? Assessment: * Assessment: 1.?Body mass index [BMI] 45. 0-49.9, adult - Z68.42 (Primary)???2.?Gastro- esophageal reflux disease without esophagitis - K21.9???3.?Nicotine dependence unspecified, with withdrawal - F17.203??? Plan: * Treatment: 2.?Nicotine dependence unspe cified, with withdrawal?LAB: NICOTINE AND COTININE, URINE ([id number]) * Procedures:?SURGICAL PLAN:?Consults: ?Consult bariatric nutrition for?2 months of preoperative supervised diets, consult bariatric psychology, consult primary care physician for medical clearance/recommendation, consult anesthesia/PACE clinic for preoperative clearance ?Diagnostic Tests: ?Test?CBC, CMP, Lipid Panel, LFTs, Thyroid, Function, Vit B-1, Vit B-12, Iron Levels, H.Pylori, CXR, EKG, Coloniscopy, EGD, UGI ?Surgical Procedure: ?1. Laparoscopic?Sleeve Gastrectomy, Will decide on a definitive procedure after thorough preoperative work-up, undefined . I have use an anatomical chart to show the postsurgical changes that occur. I discussed expected weight loss and about common early & late complications associated with the procedure; including, but not limited to, leaks, strictures, bleeding, infection, hernia, and small bowel obstructions. Discussed dumping syndrome in detail & how dietary choices can worsen this. I discussed the need for postoperative vitamins lifelong. I have discussed postsurgical follow-up. I discussed the need for supervised bariatric nutrition prior to surgery as well as mental health evaluation.?2.Preoperative work-up as detailed above. 3.All risks and benefits were discussed with the patient including: Intra- operative and/or Immediate Post-operative Risks: *: The mortality rate of the sleeve gastrectomy nationwide is 0.3% to 2%. Mortality rate associated with the gastric bypass is slightly higher-0.5 to 3%. *Significant Bleeding: Bleeding may occur unexpectedly in the operating room. Bleeding may also occur post-operatively in the days after the operation. This bleeding may be through the intestinal tract at the staple line and result in the passage of blood in the stool. Bleeding may also be unseen inside the abdomen and be diagnosed through other means. A transfusion may be necessary in some circumstances. Re-operation to stop bleeding may be necessary. If the spleen is injured during the surgery, it may need to be removed. *Anastomotic Leak: A leak is when the stapled part of the stomach does not heal. Serious complications can result from a leak, including, but not limited to a prolonged hospital stay, more operations, a long period of nothing to eat, prolonged antibiotic requirements, organ failure and . The reported incidence of anastomotic leak nationwide ranges from 0.5% to 3%. *Renal Failure: Transient kidney (renal) failure occurs rarely. Irreversible kidney failure has been reported in rare cases. *Prolonged Ventilation: A prolonged stay on a ventilator (breathing machine) in the intensive care unit may occur if a patient has severe sleep apnea or after certain significant complications. A temporary tracheostomy may be necessary. *Heart Attack: Although a heart attack is possible after a laparoscopic possible open sleeve gastrectomy, it is very rare. Risk factors for heart disease include increased age, diabetes, hypertension, hypercholesterolemia and a family history of heart disease. *Prolonged Hospital Stay: Unforeseen complications may result in a prolonged hospital stay. Intensive care admission may be required. *Bowel Obstruction (in undergoing the gastric bypass): An obstruction can occur from a number of causes, such as bleeding, scarring, technical problems or hernia, & may require reoperation. *Deep Vein Thrombosis (DVT)/Pulmonary Embolism: Blood clots that form in the legs, and elsewhere, and break off into the lungs may cause . Given this risk, treatments may be initiated to decrease the risk for the formation of blood clots, including the use of heparin (a medication that thins the blood), special foot and leg stockings, walking soon after surgery and medication at home after discharge from the hospital. Completely eliminating the risks of DVT (clots) altogether is not possible. The risks associated with the medications used to prevent blood clots can include excessive bleeding. Any symptoms of leg swelling, chest pain or sudden shortness of breath should be immediately reported to the surgeon. Rarely, patients develop allergies to heparin, sometimes causing very severe reactions. *Other Complications that may be common: Allergic reactions, headaches, itching, medication side-effects, heartburn/reflux, bruising, gout, anesthetic complications, injury to the bowel or vessels, gas bloating, minor wound drainage, wound opening, scar formation, stroke, urinary tract infection, urinary retention, pressure sores, injury to spleen or surrounding structures, and pneumonia. ? * Procedure Codes:? * Billing Information: * Visit Code:? 53003 Office Visit, New Pt., Level 5. * Procedure Codes:? * RAFT CLEANER Sign off status: Completed true * Provider:?Chirag Storey DO Date:?2023 Generated for Karlos chavez/Tamy/eTbalaitting on:?05/17/2024 12:59 PM AIRCRAFT CLEANER History and Physical Notes * HPI (History of Present Illness) Category Sub-Category Detail Notes Category Not es Bariatrics Have you undergone a ny previous gastric surgery, stomach stapling? No Choose the reason(s) which b est describe why you are pursuing weight loss at this time (_select all that apply). To improve fertility chances I am interested in: (_select all that apply) Conversion What is your expected weight loss after treatment? (in pounds) 150 Diet History: previous diet attempts (_select all that apply) Medication: Phentramine,Diet and Exercis e Eating Behaviors: I tend to eat (_select all that apply) Fast Food,Large Portions,Frequent Snacki ng What is your typical eating pattern for breakfast? Nothing or overnight oats with protein p owder What is your typical eating pattern for lunch? No lunch What is your typical eating pattern for dinner? HelloFresh meals What is your typical eating pattern when snacking Oatmeal cream pies or chocolate What is your typical eating pattern when drinking beverages? Soda or. Water BARIATRIC HISTORY AND PHYSICAL Patient i s a very pleasant adult who presents with complaints of morbid obesity with significant comorbidities despite multiple failed attempts at weight loss through dietary & exercise programs. Her weight is severely limiting her physical activity & overall lifestyle. She has been obese for several years: . They are interested in learn ing about possible surgical options to help their fight against obesity. Aforementioned attempts at weight loss have included a variety of exercise routines, exercise videos, low-fat/low-calorie diets, and commercial weight loss programs, such as Weight Watchers: . Patient: does complain of food-related g astroesophageal reflux and patient: denies dysphagia. OBESITY-RELATED COMORBIDITIE S:: Gastroesophageal Reflux disease (GERD),Back Pain,Arthritis,Polycystic ovarian syndrome (PCOS) What is your highest weight since age 18? 315 What is your lowest weight since age 18? 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 When did you start to gain weight? 1999 When did you start to feel w [age] was a problem? 2019 How long have you felt you were heavy? 2 002 Examination Category Sub-Category Detail Notes Category Not es Physical Exam General Appearance: Obese adult who is alert, in no acute distress Eyes: Conjunctivae clear, sclerae normal without icterus, pupils equal, round, reactive to light and accommodation Ears/Nose/Mouth/Throat: External ears no rmal, canals clear, TM's normal, Nares normal, Septum midline, Mucosa normal, No drainage or sinus tenderness, Lips, mucosa, and tongue normal, teeth and gums normal, oropharynx normal Neck: Supple, no adenopath y. Trachea midline and thyroid symmetric, no JVD or bruits Respiratory: Clear to auscultatio n bilaterally, breathing comfortably on room air Cardiovascular: Regular rate and rhy thm, distal pulses intact bilaterally Abdomen: Soft, non-tender, no n-distended, obese Lymph Nodes: No cervical lymphade nopathy Musculoskeletal: Spine range of motio n normal, Muscular strength intact, No joint swelling, deformity or tenderness Skin: No rashes or lesions noted Neurological: Mental status intact , CNII-XII intact, speech is clear and fluent Psychiatric: A&O x3, judgement/in sight appropriate
--- OUTSIDE RECORDS SUMMARY | 2024-05-17 13:00 | XMS_ITS | Clinical Summary ---
Author Organization [facility] Address [address] [place] [phone] Phone Care Team Providers Care Cryptographic Technician Name Role Phone Unavailable Primary Care Provider Unavailabl e Allergies No known active allergies Medications sertraline HCl (SERTRALINE ORAL) Take by mouth. Active buspirone HCl (BUSPIRONE ORAL) Take by mouth. Active ALPRAZOLAM ORAL Take by mouth. Active VIT-IRON FUM-FOLIC AC ORAL Take by mouth. Active eszopiclone (LUNESTA) 1 mg Tablet Take 1 mg by mouth nightly as needed for Insomnia. Active Encounters Date Type Department Care Team Description 05/11/2024 External Device Data [facility] Provider, Abstract 05/09/2024 External Device Data [facility] Provider, Abstract 05/02/2024 External Device Data [facility] Provider, Abstract from Last 3 Months Family History Medical History Relation Name Comments Colon Cancer Neg Hx Social History Tobacco Use Types Packs/Day Years Used Date Smoking Tobacco: Never Smokeless Tobacco: Never Tobacco Cessation:Counseling Given: Not Answered Alcohol Use Standard Drinks/Week Comments Not Currently 0 (1 standard drink = 0.6 oz pur e alcohol) Feeling Safe Answer Date Recorded Are you in a relationship wi th someone who hurts you emotionally and/or physically? No 01/21/2024 Comments Unknown Sex and Gender Information Value Date Recorded Sex Assigned at Not on file Legal Sex Female 1:58 PM CDT Gender Identity Not on file Sexual Orientation Not on file Last Filed Vital Signs Vital Sign Reading Time Taken Comments Blood Pressure 114/74 01/21/2024 1:16 PM CDT Pulse 80 01/21/2024 1:16 PM CDT Temperature 36.1 ??C (97 ??F) 01/21/2024 12: 59 PM CDT Respiratory Rate 16 01/21/2024 1:16 PM CDT Oxygen Saturation 95% 01/21/2024 1:16 PM CDT Inhaled Oxygen Concentration - - Weight 127.7 kg (281 lb 9.6 oz) 024 12:00 PM CDT Height 165.1 cm (5' 5 ) 01/21/2024 12:0 0 PM CDT Body Mass Index 46.86 01/21/2024 12:00 PM CDT Plan of Treatment Health Maintenance Due Date Last Done Comments DTAP/TDAP/TD VACCINES (7 - Tdap) 06/10/2015 06/10/2005, 11/16/1994, 05/29/1992, Additional history exists CERVICAL CANCER SCREENING 2020 INFLUENZA VACCINE (#1) 2023 04/06/2023, 2019 HEPATITIS B VACCINES Completed 05/02/1997, 02/02/1997, 11/27/1996 HPV VACCINES Completed 03/13/2008, 10/18, 09/13/2007 PNEUMOCOCCAL VACCINE 0-64 YEARS Aged Out No longer eligible based on patient's age to complete this topic Insurance [facility] [employer] [address] Responde Ai CHOICE Advance Directives For more information, please contact: [phone] * Full Code (Latest Code Status on File) Date Activated Date Inactivated Comments 01/21/2024 12:36 PM 01/21/2024 3:40 PM
--- NOTE | 2024-05-17 13:27 | ED_ITS ---
HPI - URI/Sore Throat General Chief Complaint: Upper Respiratory Infection Stated Complaint: congestion/swollen neck Time Seen by Provider: 05/17/24 13:20 Source: patient, RN notes reviewed and old records reviewed Mode of arrival: ambulatory Limitations: no limitations History of Present Illness HPI Narrative: 33 year old female who presents to express care with complaints of neck pain, feels congested and has sore throat which started this morning. Patient reports no cough or any ear pain, denies any shortness of breath. Patient reports that throat has increase discomfort with swallowing, has no had any fevers or body aches, reports has not taken any medications OTC for her symptoms. MD elicited complaint: sore throat Onset (ago): hour(s) (this morning) Pain scale (0-10): 3 Exacerbating factors: swallowing Treatments prior to arrival: none Related Data Allergies Allergy/AdvReac Type Severity Reaction Status Date / Time No Known Allergies Allergy Verified 05/17/24 11:54 Review of Systems Review of Systems: CONSTITUTIONAL: Denies malaise, chills, sweats, or fever. EYES: Denies visual changes, redness, or discharge. ENT: Reports rhinorrhea, congestion, sinus pain, no otalgia and positive sore throat, reports neck pain. CARDIOVASCULAR: Denies chest pain, palpitations, or edema. RESPIRATORY: Reports no acute cough.? Denies dyspnea. GASTROINTESTINAL: Denies abdominal pain, nausea, vomiting, diarrhea SKIN: Denies rash or itching. MUSCULOSKELETAL: Denies myalgia. NEUROLOGIC: Denies headache. All systems reviewed & are unremarkable except as noted in HPI and below PMFSH Past Medical History Medical History Depression Anxiety PCOS (polycystic ovarian syndrome) Surgical History Surgical History Hx of tonsillectomy H/O knee surgery x 4 Family History Family History Mother Acute myocardial infarction Father Blood clot in leg Social History Social History Smoking status: Former smoker Alcohol intake: current Alcohol use details: rare Substance use: never Substance use type: does not use Do You Feel Safe in your Home?: Yes Lack of Transportation: No Lack of Food: Never True Current Housing: I Have Housing Concerned About Future Housing: No Difficulty Paying Gas/Electric Bills: No Difficulty Paying for Meds: No Currently Unemployed: No Education: High School Diploma/GED Difficulty w/ Childcare or Family Care: No Living arrangements: other Additional living arrangements comments: Occupation/Education: occupation Gender identity (if verbalized by the patient): Female Sexual Orientation (if Verbalized by the Patient): Straight or Heterosexual Comments At time of signature, agree with nursing past medical, surgical, social and family history. There is no relevant family history pertinent to the presenting complaint Exam Narrative: GENERAL: Well-appearing, well-nourished, obese and in no acute distress. HEAD: Normocephalic EYES: PERRLA, conjunctivae clear ENT: Nares clear, turbinates edematous and erythematous, clear discharge, sinus pressure and some neck pain,. Mucous membranes moist. TM pearly [place]oll[place] with dull light reflex bilaterally; no tragal tenderness. Oropharynx erythematous without lesions. Tonsils not present and throat without exudate, no drooling, no hoarseness, no trismus, uvula midline.post nasal drainage present. NECK: Supple. No lymphadenopathy CHEST: Clear to auscultation, breath sounds equal. No wheezing, rhonchi, rales, or stridor. No respiratory distress, speaks in full sentences.SAO2 99% on room air HEART: Regular rate and rhythm. No murmur heard. SKIN: Warm, dry, no rash. NEURO: Alert and oriented x3.no nuchal rigidity full mobility of neck PSYCH: Normal mood and affect Course Course Emergency Course: Patient is aware of diagnosis, understands and agrees to treatment plan.? Anticipatory guidance given.? Patient agrees to follow-up as directed and is aware of reasons to seek care at the emergency department. Portions of this record may have been created with voice recognition software Level of Care: Express Care Visit Vital Signs Vital signs: Vital Signs Temperature 36.4 C 05/17/24 11:56 Pulse Rate 92 05/17/24 11:56 Respiratory Rate 18 05/17/24 11:56 Blood Pressure 119/72 05/17/24 11:56 Pulse Oximetry 99 05/17/24 11:56 Oxygen Delivery Room Air 05/17/24 11:56 Temperature 36.4 C 05/17/24 11:56 Pulse Rate 92 05/17/24 11:56 Respiratory Rate 18 05/17/24 11:56 Blood Pressure 119/72 05/17/24 11:56 Pulse Oximetry 99 05/17/24 11:56 Oxygen Delivery Room Air 05/17/24 11:56 Reviewed MDM - URI/Sore Throat MDM Narrative Medical decision making narrative: Differential diagnosis considered: Lyle virus, strep pharyngitis, allergic rhinitis, upper respiratory tract infection, sinusitis, rhinosinusitis, nasopharyngitis. viral pharyngitis, otitis media, otitis externa, pneumonia, bronchitis, viral cough syndrome, viral syndrome, and influenza.? Exam findings show no acute concerns or changes; patient is non-toxic appearing and is in no distress.? Patient is appropriate for outpatient treatment and follow-up. Differential Diagnosis Differential diagnosis: Likely upper respiratory infection, viral infection, pharyngitis and other (strep pharyngitis) Medical Records Attestation: I reviewed the patient's medical records. Lab Data Attestation: I reviewed the patient's lab results. Lab results narrative: Strep screen negative , culture sent, Influenza A negative, Influenza B negative, COVID antigen negative Labs: Lab Results 05/17/24 Range/Units 12:10 POC Influenza A Ag Negative (Negative) POC Influenza B Ag Negative (Negative) POC SARS CoV-2 Ag Negative (Negative) POC Grp A Strep Screen Negative (Negative) reviewed Critical Care Time Critical Care Time Critical Care Time: No Discharge Plan Discharge Clinical Impression: Upper respiratory infection Qualifiers: URI type: unspecified URI Qualified Code(s): J06.9 - Acute upper respiratory infection, unspecified Pharyngitis Qualifiers: Pharyngitis/tonsillitis etiology: unspecified etiology Qualified Code(s): J02.9 - Acute pharyngitis, unspecified Patient Disposition: Home, Self-Care Condition: Stable Instructions: Antibiotic Form, Upper Respiratory Infection (ED) Additional Instructions: Increase fluids especially juices and water [id number]-[id number] cough and cold medicine of your choice for your symptoms Tylenol or ibuprofen for any fever pain Zyrtec Claritin or Jazmin daily heat to the face 20-30 minutes 4-6 times a day for pain Salt water gargles, throat lozenges or throat sprays as desired Your strep test today was negative. A throat culture will be sent to the laboratory for further testing. IF the test is positive, you will receive a phone call within 48 hours and an appropriate antibiotic will be initiated at that time. Influenza And COVID tests negative Patient Language: Monegasque Prescriptions: No Action sertraline 100 mg tablet 100 mg PO BID Qty: 180 3RF buspirone 10 mg tablet See Rx Instructions PO DAILY PRN (Reason: anxiety) Qty: 270 0RF Rx Instructions: Take 1 in the morning and 2 at bedtime. Zepbound 10 mg/0.5 mL pen injector 10 mg subcut WEEKLY Qty: 2 0RF Follow-up/Referrals: William Franklin MD [Primary Care Provider] - Time of Disposition: 13:41 Quality [place] Coma Scale Eyes: Open Verbal: Oriented and Alert Motor: Follows Commands [place] Coma Total Score: 15
== END 2024-05-17 13:45 | disposition home or self-care (01) ==
PROVIDERS: Emergency Provider Registered Nurse; PCP Family Medicine
DX: J06.9 Acute upper respiratory infection, unspecified (principal); J02.9 Acute pharyngitis, unspecified; Z20.822 Contact with and (suspected) exposure to COVID-19; E28.2 Polycystic ovarian syndrome; F41.9 Anxiety disorder, unspecified; F32.A Depression, unspecified; Z87.891 Personal history of nicotine dependence
CPT/HCPCS: 87081; 87426; 87804; 87880; 99213; G0463

== ENCOUNTER 2024-10-27 11:31 | Outpatient (CLI) | payer BC, SELFPAY ==
--- OUTSIDE RECORDS SUMMARY | 2024-10-27 11:38 | XMS_ITS | Clinical Summary ---
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 Gender Identity Female 08/13/2020 1:44 PM CDT [...] 8:10 AM CDT Height 165.1 cm (5' 5) 10/25/2023 8:10 AM CDT Body Mass Index 45.6 10/25/2023 8:10 AM CDT Plan of Treatment Health Maintenance Due Date Last Done Comments Cervical Cancer Screening 1990 Depression Screening 1990 Hepatitis C Screening 1990 Varicella Vaccines (1 of 2 - 13+ 2-dose series) 10/02/2003 Regular Well Visit/Exam 18-64 2008 DTaP/Tdap/Td Vaccine (7 - Tdap) 06/10/2015 06/10/2005, 11/16/1994, 05/29/1992, Additional history exists Influenza Vaccine (#1) 2024 3, 04/05/2020, 03/25/2018, Additional history exists HPV Vaccines Completed 02/26/2015, 02/18, 11/10/2007, Additional history exists Hepatitis B Screening Completed 02/26/2015 , 05/02/1997, 02/02/1997, Additional history exists Pneumococcal vaccine <65 Aged Out No longer eligible based on patient's age to complete this topic Insurance [facility] KIS Group OOS KIS Group OOS KIS Group OOS Care Teams Paint Factory Worker Relationship Specialty Start Date End Date Fredy Ellington MD [facility] [address] PCP - General 07/21/16
--- OUTSIDE RECORDS SUMMARY | 2024-10-27 11:38 | XMS_ITS | Referral Summary ---
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
--- OUTSIDE RECORDS SUMMARY | 2024-10-27 11:38 | XMS_ITS | Data Portability ---
Author Organization [place] [employer], Main Office Address [address] [place] [address] Care Team Providers Care Roving Frame Tender Name Role Phone LORENA MURRAY Primary Care Provider LORENA MURRAY Referring Provider Assessment Encounter Date Assessment Date Assessment LastModified by Organization Details LastModified Time 07/19/2023 07/19/2023 This note is dictated and transcribed by [employer]. Decker Operator variances may occur. Despite proofreading, typographical errors may occur. Occasional wrong-word or 'pruhm-r-kvzu' substitutions may have occurred due to the inherent limitations of voice recording. Read the chart carefully and recognize, using context, where substitutions have occurred. dinorah Not available 07/19/2023 10:52:07 08/23/2023 08/23/2023 This note is dictated and transcribed by [employer]. Decker Operator variances may occur. Despite proofreading, typographical errors may occur. Occasional wrong-word or 'ohcsg-s-uare' substitutions may have occurred due to the inherent limitations of voice recording. Read the chart carefully and recognize, using context, where substitutions have occurred.And dniorah Not available 08/23/2023 16:58:32 10/25/2023 10/25/2023 This note is dictated and transcribed by [employer]. Decker Operator variances may occur. Despite proofreading, typographical errors may occur. Occasional wrong-word or 'kfbvj-e-jvvy' substitutions may have occurred due to the inherent limitations of voice recording. Read the chart carefully and recognize, using context, where substitutions have occurred. dinorah Not available 10/25/2023 11:40:55 06/13/2024 06/13/2024 The patient has moderately severe primary osteoarthritis of the right knee joint with essentially jlio-zi-tihj changes in the medial compartment on the very medial edge of the joint line and some mild to moderate primary osteoarthritis of the patellofemoral articulation with significant crepitation and small marginal osteophyte noted off the lateral facet. We talked about treatment options today in detail the patient wanted to proceed with cortisone I offered her formal physical therapy she declined. She would like to try a course of oral prednisone as well this has helped her other knee in the past. Therefore under sterile conditions I injected the patient's right knee joint in the office with 4 cc 0.5% bupivacaine and 20 mg of Kenalog. Patient tolerated procedure well. I will see her back in 6 weeks to see what impact treatment has had. If her symptoms worsen or change she is instructed to call she voiced understanding and agreed with the above plan she will call for any further problems difficulties or questions. Not available 06/13/2024 16:48:49 08/04/2024 08/04/2024 The patient has moderate primary osteoarthritis of the right knee joint particularly in the very medial edge of the medial compartment as well as in the patellofemoral articulation. A lot of her pain was localized laterally in the tibial femoral articulation. Her exam is fairly benign today after treatment. I have advised her to continue to work on weight loss this will help her knee usp we also talked about keep the muscles strong she declined formal therapy we talked about low-impact exercise on her own at home. She will use ibuprofen hbki-cvg-erejcia if her pain starts to flare up again. For now she is dismissed I will see her back as needed she voiced understanding and agreed with the above plan she will call for any further problems difficulties or questions. Not available 08/04/2024 12:05:04 Plan of Treatment Reminders Order Date Submit Date Provider Last Modified By Organization Details Last Modified Time Details Appointments None recorded. Lab None recorded. Referral None recorded. Procedures injection/a spiration joint/bursa (PROC) 2024 025 [email or web address] In-Office Order, Internal Use Only DO Not Attach Compendium DO Not Attach Compendium, Do Not Delete/merge, [id number] 02/25/202 5 16:12:16 Surgeries None recorded. Imaging XR, knee 2024 025 [place] [address] [facility], [address], [place], [address], 5 16:53:22 MRI, foot, w/o contrast [address] [email or web address] (Im[facility]), [address], [place], [address], 4 11:57:01 Medication Orders prednisone 10 mg tablets in a dose pack [id number], [address], [place], [address], 5 16:53:22 bupivacaine HCl 0.5 % (5 mg/mL) injection solution 2024 025 [place] [address] [id number], [address], [place], [address], 5 16:53:22 Kenalog 10 mg/mL suspension for injection [address] #[id number], [address], [place], [address], 5 16:53:22 diclofenac sodium 75 mg tablet,kvng yed release 2023 024 [email or web address] [id number], [address], [place], [address], 4 11:17:04 Patient TargetsNo targets recorded. Patient InstructionsNo instructions recorded. Reason for Referral None Reported. Results Created Date Observation Date Name Description Value Unit Range Abnormal Flag Note LastModifiedBy Organization Detail LastModifiedTime 07/29/19 24 07/29/2023 MRI, foot, w/o contr ast [facility] [address] [place] [address] Patien t Name: HAVEN WRIGHT Access ion #: [id number] Sex: F : 1990 2 Dictat ed By: Akhil Montgomery ms Attend ing Physic adrianne: JOAQUIM ASTORGA Orderi ng Physic adrianne: JOAQUIM ASTORGA Exam Date: 2023 16:12 PM Exam Name: MRI FOOT RT WO Admitt ing Diagno sis(es ): CLINIC AL INDICA TION: Pain in the heel. COMPAR EVELYN: Radiog raph of the right foot dated 024. TECHNI QUE: Multip lanar, multis equenc e MRI of the right foot was perfor med withou t intrav enous contra st. Contra st: None. INTERP RETATI ON: Bones: No eviden ce of acute fractu re. There is no marrow replac ing lesion . Alignm ent: Preser shaheed. No signif icant degene rative change s. Soft tissue s: The long medial flexor tendon s are intact . Perone us brevis and longus tendon s are intact . Visual ized dorsal extens or tendon s are intact . The planta r fascia is thicke elisa at its origin with T2 hyperi ntensi ty, compat ible with planta r fascii tis. No tear of the medial cord. Anteri or talofi bular ligame nt and mva reactor operator ior talofi bular ligame nt are intact . Inferi or tibiof ibular syndes motic ligame nts are intact . Deltoi d and spring ligame nts are intact . IMPRES SRUTHI: 1. Planta r fascii tis. No tear of the planta r fascia . 2. MRI of the right foot is otherw ise within normal limits . HS:Y Electr onical ly Signed by: Akhil Montgomery ms at 2023 21:36: 42 PM Page [email or web address] [facility] ([facility]) [address] [place], [address], 08/03/2023 15:47:55 07/29/19 24 07/29/2023 MRI, foot, w/o contr ast No observ ation record ed. [email or web address] [facility] [address] [place], [address], 08/03/2023 15:47:56 06/13/19 25 XR, knee No observ ation record ed. [email or web address] [facility] [address], [place], [address], 06/13/2024 16:49:52 Result Notes Documentation Provider Name and Address Organization Details Recorded Time Mri, Foot, W/o Contrast : [facility] [address] [place] [address] Patient Name: HAVEN WRIGHT Sex: F : 1990 Dictated By: Corazon Singh Attending Physician: JOAQUIM FRAUSTO Ordering Physician: JOAQUIM FRAUSTO Exam Date: 07/29/2023 16:12 PM Exam Name: MRI FOOT RT WO Admitting Diagnosis(es): CLINICAL INDICATION: Pain in the heel. COMPARISON: Radiograph of the right foot dated 05/03/2023. TECHNIQUE: Multiplanar, multisequence MRI of the right foot was performed without intravenous contrast. Contrast: None. INTERPRETATION: Bones: No evidence of acute fracture. There is no marrow replacing lesion. Alignment: Preserved. No significant degenerative changes. Soft tissues: The long medial flexor tendons are intact. Peroneus brevis and longus tendons are intact. Visualized dorsal extensor tendons are intact. The plantar fascia is thickened at its origin with T2 hyperintensity, compatible with plantar fasciitis. No tear of the medial cord. Anterior talofibular ligament and posterior talofibular ligament are intact. Inferior tibiofibular syndesmotic ligaments are intact. Deltoid and spring ligaments are intact. IMPRESSION: 1. Plantar fasciitis. No tear of the plantar fascia. 2. MRI of the right foot is otherwise within normal limits. HS:Y Page 1 Joaquim Frausto DPM [address] [facility] [place], [address], [place], [address], [facility] 08/03/2023 15:47:55 Problems Name Problem SNOMED Code Status Onset Date Resolution Date Notes Provider Name and Address Organization Details Recorded Time Attention deficit hyperactiv ity disorder, predominan tly inattentiv e type 07736564 Active 2022 Not Available [facility] 4 15:51:54 Obesity 415405040 Active 2022 Not Available [facility] 4 15:51:54 Elevated blood-pres sure reading without diagnosis of hypertensi on 993403171 Active 2022 Not Available [facility] 4 15:51:54 Insomnia 474403301 Active Not Available [facility] 4 15:51:53 Anxiety disorder 726501203 Active Not Available [facility] 4 15:51:53 Abdominal pain 93280030 Active Not Available [facility] 4 15:51:53 Gastroesop hageal reflux disease 489176669 Active Not Available [facility] 4 15:51:53 Vulvodynia 707889564 Active Not Available [facility] 4 15:51:53 Increased blood pressure 68052984 Active Not Available [facility] 4 15:51:53 Acute allergic reaction 297148910 Active Not Available [facility] 4 15:51:53 Acute vaginitis 43140100 Active Not Available [facility] 4 15:51:54 Urinary symptoms 533659515 Active Not Available [facility] 4 15:51:54 Headache 57772324 Active Not Available [facility] 4 15:51:54 Dysmenorrh ea 093539580 Active Not Available [facility] 4 15:51:54 Mosquito bite 097346166 Active Not Available [facility] 4 15:51:54 Level of anxiety 903919478 Active Not Available [facility] 4 15:51:54 Hypoglycem ia 008021697 Active Not Available [facility] 4 15:51:54 Knee pain Active Not Available [facility] 4 15:51:54 Osteoarthr itis of left knee joint 9111571642080 09 Active 2021 Not Available [facility] 4 15:51:54 Depressive disorder 03768979 Active Not Available [facility] 4 15:51:54 Sinusitis 69792952 Active Not Available [facility] 4 15:51:54 Osteoarthr itis 604192295 Active 2021 Not Available [facility] 4 15:51:54 Sleep disorder 92520035 Active Not Available [facility] 4 15:51:54 Multiple benign melanocyti c nevi 657747316 Active Not Available [facility] 4 15:51:54 Periodic limb movement disorder 800490352 Active Not Available [facility] 4 15:51:54 Temporoman dibular joint disorder 85349058 Active Not Available [facility] 4 15:51:54 Nausea 609601344 Active Not Available [facility] 4 15:51:54 Viral syndrome 999786739 Active Not Available [facility] 4 15:51:54 Pain of left knee joint 6293137438636 07 Active 2021 Not Available [facility] 4 15:51:54 Anxiety 09391697 Active Not Available [facility] 4 15:51:54 Hyperlipid emia 94699174 Active Not Available [facility] 4 15:51:54 Tachyarrhy thmia 3024868 Active Not Available [facility] 4 15:51:54 Costal chondritis 22598689 Active Not Available [facility] 4 15:51:54 Subconjunc tival hemorrhage 69362514 Active Not Available [facility] 4 15:51:54 Fatigue 92908150 Active Not Available [facility] 4 15:51:54 Pain in limb 42975368 Active Not Available [facility] 4 15:51:54 Morbid obesity 510889093 Active 2022 Not Available [facility] 4 15:51:53 Acute urinary tract infection 983566443 Active 2022 Not Available [facility] 4 15:51:54 Belching symptom 757762249 Active 2022 Not Available [facility] 4 15:51:54 Tachycardi a 8630430 Active 2022 Not Available [facility] 4 15:51:54 Plantar fasciitis of right foot 6637802461471 9101 Active 2022 Not Available [facility] 4 15:51:53 Pruritic rash 48469633 Active 2022 Not Available [facility] 4 15:51:54 Contusion of left knee 9368922882403 9109 Active 2022 Not Available [facility] 4 15:51:53 Pain in right heel 3718287009978 105 Active 2023 Not Available [facility] 4 15:51:53 Pain in right foot 7133709873644 07 Active 2023 Not Available [facility] 4 15:51:54 Calcaneal spur of right foot 1715096748111 00 Active 2023 Not Available [facility] 4 15:51:54 Pain of right knee joint 8402504782407 00 Active 2024 ESTEVAN Carvajal null, [employer] 5 15:51:59 Osteoarthr itis of right knee joint 6450415057440 00 Active 2024 BECKA Serna [address], [address], [place], [address] , [employer] 5 16:50:10 Problem Notes None recorded. Procedures Surgical History Date Name Laterality Status Provider Name and Address Organization Details Recorded Time 08/23/19 24 Plantar Fascia Injection Right Foot completed Joaquim Frausto DPM [address], [address], [place], [address], [employer] 08/23/2023 16:58:20 05/31/19 24 Plantar Fascia Injection Right Foot completed Joaquim Frausto DPM [address], [address], [place], [address], [employer] [facility] [employer] [facility] 06/07/2023 10:32:32 05/13/19 24 Plantar Fascia Injection Right Foot completed Joaquim Frausto DPM [address], [address], [place], [address], [employer] [facility] [employer] [facility] 05/13/2023 16:31:14 12/11/19 23 Cortisone Injection (Dequervains/ Greater Trochantric/ Lateral Epicondylitis/ Medial Epicondylitis / Shoulder/ Subacromial Space/ Knee/ Trigger Finger or Plantar Fascia) completed Fredy Ellington MD [address], [address], [place], [address], [employer] [facility] [employer] [facility] 12/10/2022 17:23:24 Knee completed ESTEVAN Carvajal [facility] 06/13/2024 15:50:09 Imaging Results None recorded. Procedure Notes None recorded. Medical Equipment None Reported. Allergies Allergen ID Allergen Name Allergen Category Reaction Reaction Severity Criticality Documentation Date Start Date Code Code System Note Provider Name and Address Organization Details Recorded Time 5356 Zoloft medicatio n Not available Not available Not available 06/17/2022 77831 RxNorm ananda rothman Not Available [facility] 3 03:10:20 Medications Name Sig Start Date Stop Date Status Note LastModified by Organization Details LastModified Time cyclobenzap rine 10 mg tablet active Not Available Not Available Not Available medroxyprog esterone 10 mg tablet TAKE 1 TABLET BY MOUTH EVERY DAY X10 DAYS EVERY MONTH IF AMENORRHE IC 11/03 completed Not Available Not Available Not Available buspirone 5 mg tablet Take 1 tablet twice a day by oral route. 02/21 completed Not Available Not Available Not Available venlafaxine ER 37.5 mg capsule,ext ended release 24 hr Take 1 capsule every day by oral route for 90 days. active Not Available Not Available No t Available prednisone 10 mg tablet TAKE 1 TABLET BY MOUTH 3 TIMES DAILY FOR 3 DAYS, 1 TAB TWICE DAILY X2DAYS, 1 TAB ONCE X1 DAY active Not Available Not Available No t Available venlafaxine ER 75 mg capsule,ext ended release 24 hr Take 1 capsule every day by oral route. active Not Available Not Available No t Available doxycycline hyclate 100 mg capsule TAKE 1 CAPSULE BY MOUTH TWICE A DAY FOR 5 DAYS 09/02 completed Not Available Not Available Not Available Prenatabs Rx 29 mg iron-1 mg tablet active Not Available Not Available Not Available cetirizine 10 mg tablet TAKE 1 TABLET BY MOUTH ONCE DAILY 11/26 completed Not Available Not Available Not Available Tab-A-Lanie tablet 04/04 completed Not Available Not Available Not Available ibuprofen 800 mg tablet TAKE 1 TABLET BY MOUTH THREE TIMES DAILY NEEDED 09/08 completed Not Available Not Available Not Available fluconazole 150 mg tablet Take 1 tablet every day by oral route. active Not Available Not Available No t Available benzonatate 200 mg capsule Take 1 capsule 3 times a day by oral route as needed. active Not Available Not Available No t Available acetaminoph en 120 mg-codeine 12 mg/5 mL oral solution TK 2 TO 3 FABIANO PO Q 4 H PRN P active Not Available Not Available No t Available hydrocodone 5 mg-acetamin ophen 325 mg tablet TAKE 1 TABLET BY MOUTH EVERY 6 HOURS NEEDED FOR PAIN 06/13 completed Not Available Not Available Not Available ondansetron HCl 8 mg tablet Take 1 tablet every 8 hours by oral route for 2 days. active Not Available Not Available No t Available metronidazo le 0.75 % (37.5 mg/5 gram) vaginal gel 04/18 completed Not Available Not Available Not Available bupivacaine HCl 0.5 % (5 mg/mL) injection solution Take 4 mL by injection route. 2024 active Not Available Not Available Not Avai lable spironolact one 100 mg tablet TAKE 1 TABLET BY MOUTH TWICE DAILY 07/02 completed Not Available Not Available Not Available sertraline 100 mg tablet TAKE 1 TABLET BY MOUTH TWICE A DAY active Not Available Not Available No t Available simvastatin 10 mg tablet active Not Available Not Available Not Available terconazole 0.8 % vaginal cream active Not Available Not Available Not Available Debrox 6.5 % ear drops INSTILL 5 DROPS INTO AFFECTED EAR(S) BY OTIC ROUTE 2 TIMES PER DAY 10/10 completed Not Available Not Available Not Available Zithromax Z-Chris 250 mg tablet TAKE 2 TABLETS (500 MG) BY ORAL ROUTE ONCE DAILY FOR 1 DAY THEN 1 TABLET (250 MG) BY ORAL ROUTE ONCE DAILY FOR 4 DAYS 07/03 completed Not Available Not Available Not Available penicillin V potassium 500 mg tablet 01/26 completed Not Available Not Available Not Available metronidazo le 500 mg tablet Take 1 tablet twice a day by oral route for 7 days. 04/18 completed Not Available Not Available Not Available phentermine 37.5 mg tablet TAKE 1 TABLET BY MOUTH EVERY DAY 07/03 completed Not Available Not Available Not Available ciprofloxac in 500 mg tablet TAKE 1 TABLET BY MOUTH EVERY 12 HOURS 11/03 completed Not Available Not Available Not Available sulfamethox azole 800 mg-trimetho prim 160 mg tablet TAKE 1 TABLET BY MOUTH EVERY 12 HOURS FOR 5 DAYS 03/04 completed Not Available Not Available Not Available tramadol 50 mg tablet TAKE 1 TABLET BY MOUTH EVERY 6 HOURS NEEDED 06/27 completed Not Available Not Available Not Available triamcinolo ne acetonide 0.1 % topical cream APPLY A THIN LAYER OF CREAM EXTERNALL Y TO AFFECTED AREA TWICE DAILY 08/04 completed Not Available Not Available Not Available pantoprazol e 20 mg tablet,kvng yed release TAKE 1 TABLET BY MOUTH EVERY DAY IN THE MORNING active Not Available Not Available No t Available prednisone 10 mg tablets in a dose pack Take 1 tab by mouth, 3 times a day for 3 daysTake 1 tab by mouth 2 times a day for 2 daysTake 1 tab by mouth once a day for 1 day 2024 active Not Available Not Available Not Avai lable alprazolam 0.5 mg tablet TAKE 1 TABLET BY MOUTH EVERY DAY AT BEDTIME WEANING DOWN 06/13 completed Not Available Not Available Not Available amoxicillin 875 mg tablet Take 1 tablet every 12 hours by oral route. active Not Available Not Available No t Available alprazolam 0.25 mg tablet Take 1 tablet 3 times a day by oral route as needed. 07/02 completed Not Available Not Available Not Available ropinirole 0.25 mg tablet TAKE 2 TABLETS BY MOUTH DAILY 1 HOUR BEFORE BEDTIME active Not Available Not Available No t Available Kenalog 10 mg/mL suspension for injection Take 2 mL by injection route. 2024 active [facility]: [phone] Not Available Not Available Not Available phenazopyri dine 100 mg tablet TAKE 1 TABLET BY MOUTH THREE TIMES A DAY 11/03 completed Not Available Not Available Not Available cephalexin 500 mg capsule TAKE 1 CAPSULE BY MOUTH EVERY 12 HOURS FOR 7 DAYS 11/03 completed Not Available Not Available Not Available simvastatin 20 mg tablet 04/18 completed Not Available Not Available Not Available Zithromax 200 mg/5 mL oral suspension TAKE 12.5 MILLILITE RS (500 MG) BY ORAL ROUTE ONCE DAILY FOR 1 DAY THEN 6.25 MILLILITE RS (250 MG) BY ORAL ROUTE ONCE DAILY FOR 4 DAYS active Not Available Not Available No t Available oseltamivir 75 mg capsule TAKE 1 CAPSULE BY MOUTH EVERY 12 HOURS FOR 5 DAYS 07/03 completed Not Available Not Available Not Available Prozac 20 mg capsule Take 1 capsule every day by oral route. active Not Available Not Available No t Available metformin 1,000 mg tablet 04/18 completed Not Available Not Available Not Available nystatin 100,000 unit/gram topical cream active Not Available Not Available Not Available ranitidine 150 mg tablet Take 1 tablet twice a day by oral route. active Not Available Not Available No t Available buspirone 10 mg tablet TAKE 1 TABLET BY MOUTH IN THE MORNING AND 2 TABLETS AT BEDTIME NEEDED FOR ANXIETY active Not Available Not Available No t Available lidocaine 5 % topical patch APPLY 3 PATCHES ONTO THE SKIN ONCE DAILY. LEAVE ON FOR UP TO 12 HOURS 07/03 completed Not Available Not Available Not Available progesteron e micronized 200 mg capsule INSERT 1 CAPSULE VAGINALLY TWICE DAILY 06/13 completed Not Available Not Available Not Available estradiol 2 mg tablet TAKE 1 TABLET BY MOUTH TWICE A DAY X10 DAYS 10/24 completed Not Available Not Available Not Available diclofenac sodium 75 mg tablet,kvng yed release TAKE 1 TABLET BY MOUTH TWICE A DAY FOR 15 DAYS 10/24 completed Not Available Not Available Not Available mupirocin 2 % topical ointment APPLY TOPICALLY TWICE A DAY 06/13 completed Not Available Not Available Not Available ibuprofen 600 mg tablet TAKE 1 TABLET BY MOUTH EVERY 6 HOURS WITH FOOD NEEDED 06/27 completed Not Available Not Available Not Available letrozole 2.5 mg tablet TAKE 3 TABLETS (7.5 MG TOTAL) BY MOUTH DAILY FOR 5 DAYS 10/24 completed Not Available Not Available Not Available zolpidem 10 mg tablet PLEASE SEE ATTACHED FOR DETAILED DIRECTION S 06/13 completed Not Available Not Available Not Available methylpredn isolone 4 mg tablets in a dose pack TAKE 6 TABLETS ON DAY 1 DIRECTED ON PACKAGE AND DECREASE BY 1 TAB EACH DAY FOR A TOTAL OF 6 DAYS 02/25 completed Not Available Not Available Not Available albuterol sulfate HFA 90 mcg/actuati on aerosol inhaler INHALE 1 PUFF BY MOUTH TWICE DAILY active Not Available Not Available No t Available ondansetron 4 mg disintegrat ing tablet DISSOLVE 1 TABLET ON THE TONGUE EVERY 6 HOURS NEEDED FOR NAUSEA/VO MITING 06/13 completed Not Available Not Available Not Available glyburide 1.25 mg tablet TAKE 1 TABLET BY MOUTH TWICE DAILY active Not Available Not Available No t Available metformin ER 500 mg tablet,exte nded release 24 hr Take 2 tablets every day by oral route. active Not Available Not Available No t Available sertraline 50 mg tablet TAKE 1 TABLET BY MOUTH ONCE DAILY 02/21 completed Not Available Not Available Not Available Clomid 50 mg tablet TAKE 3 TABLETS BY MOUTH DAILY FOR 5 DAYS 10/24 completed Not Available Not Available Not Available spironolact one 50 mg tablet Take 1 tablet every day by oral route. 2014 active Not Available Not Available Not Avai lable amoxicillin 875 mg-potassiu m clavulanate 125 mg tablet TAKE 1 TABLET BY MOUTH EVERY 12 HOURS FOR 10 DAYS 02/25 completed Not Available Not Available Not Available hydroxyzine pamoate 25 mg capsule TAKE 1 CAPSULE BY MOUTH 4 TIMES DAILY NEEDED. 06/13 completed Not Available Not Available Not Available Lexapro 10 mg tablet Take 1 tablet every day by oral route. 2014 active Not Available Not Available Not Avai lable bupropion HCl XL 300 mg 24 hr tablet, extended release Take 1 tablet every day by oral route. 10/04 completed Not Available Not Available Not Available bupropion HCl XL 150 mg 24 hr tablet, extended release Take 1 tablet every day by oral route. 10/04 completed Not Available Not Available Not Available hydrocodone 7.5 mg-acetamin ophen 325 mg/15 mL oral solution TK 15 ML PO Q 4 H PRN P active Not Available Not Available No t Available ORTHOVISC 30 mg/2 mL intra-artic ular syringe Inject 2 mL every week by intra-art icular route. 07/03 completed Not Available Not Available Not Available Prenatabs FA 29 mg-1 mg tablet 10/04 completed Not Available Not Available Not Available nitrofurant oin monohydrate /macrocryst als 100 mg capsule TAKE 1 CAPSULE BY MOUTH EVERY 12 HOURS WITH FOOD 06/13 completed Not Available Not Available Not Available eszopiclone 3 mg tablet TAKE 1 TABLET BY MOUTH EVERY DAY AT BEDTIME 06/13 completed Not Available Not Available Not Available eszopiclone 1 mg tablet TAKE 1 TABLET BY MOUTH EVERYDAY AT BEDTIME 06/13 completed Not Available Not Available Not Available Jolessa 0.15 mg-30 mcg (91) tablets,3 month dose pack 10/10 completed Not Available Not Available Not Available calcium 600 mg (as carbonate)- vitamin D3 10 mcg (400 unit) tablet TAKE 1 TABLET BY MOUTH TWICE DAILY active Not Available Not Available No t Available Nexplanon 68 mg subdermal implant Inject by subcutane ous route. 04/04 completed Not Available Not Available Not Available 28 mg iron-800 mcg tablet TAKE 1 TABLET BY MOUTH EVERY DAY active Not Available Not Available No t Available vits 96-ferrous fumarate 27 mg iron-folic acid 800 mcg tablet 07/09 completed Not Available Not Available Not Available Vestura (28) 3 mg-0.02 mg tablet TAKE 1 TABLET BY MOUTH EVERY DAY 10/24 completed Not Available Not Available Not Available Gildess 05/08 (21) 1 mg-20 mcg tablet 07/09 completed Not Available Not Available Not Available Classic 28 mg iron-800 mcg tablet TAKE 1 TABLET BY MOUTH ONCE DAILY active Not Available Not Available No t Available Kyleena 17.5 mcg/24 hr (up to 5 years) 19.5 mg intrauterin e device Take by intrauter ine route. 05/31 completed Not Available Not Available Not Available Johanny 0.25 mg-0.035 mg tablet TAKE 1 TABLET BY MOUTH EVERY DAY active Not Available Not Available No t Available Tab-A-Lanie 400 mcg tablet TAKE 1 TABLET BY MOUTH ONCE DAILY active Not Available Not Available No t Available QuickVue At-Home COVID-19 Test kit 08/04 completed Not Available Not Available Not Available Wegovy 2.4 mg/0.75 mL subcutaneou s pen injector INJECT 2.4 MG SUBCUTANE OUSLY WEEKLY NEED PRIMARY INSURANCE 06/13 completed Not Available Not Available Not Available Wegovy 1.7 mg/0.75 mL subcutaneou s pen injector INJECT THE CONTENTS OF 1 PEN UNDER THE SKIN ONCE WEEKLY 02/25 completed Not Available Not Available Not Available Wegovy 1 mg/0.5 mL subcutaneou s pen injector INJECT 1 MG SUBCUTANE OUSLY EVERY WEEK active Not Available Not Available No t Available Wegovy 0.25 mg/0.5 mL subcutaneou s pen injector INJECT THE CONTENTS OF 1 PEN UNDER THE SKIN ONCE WEEKLY 08/04 completed Not Available Not Available Not Available Wegovy 0.5 mg/0.5 mL subcutaneou s pen injector INJECT 0.5MG UNDER THE SKIN ONCE WEEKLY 02/25 completed Not Available Not Available Not Available Zepbound 10 mg/0.5 mL subcutaneou s pen injector INJECT THE CONTENTS OF 1 PEN UNDER THE SKIN ONCE WEEKLY 06/13 completed Not Available Not Available Not Available Zepbound 5 mg/0.5 mL subcutaneou s pen injector INJECT 5 MG (0.5 ML) SUBCUTANE OUSLY WEEKLY 06/13 completed Not Available Not Available Not Available Zepbound 2.5 mg/0.5 mL subcutaneou s pen injector INJECT 2.5 MG SUBCUTANE OUSLY WEEKLY FOR 4 WEEKS 06/13 completed Not Available Not Available Not Available Zepbound 12.5 mg/0.5 mL subcutaneou s pen injector INJECT 12.5MG UNDER THE SKIN WEEKLY active Not Available Not Available No t Available Zepbound 7.5 mg/0.5 mL subcutaneou s pen injector INJECT 7.5MG (0.5ML) UNDER THE SKIN WEEKLY active Not Available Not Available No t Available Vitals Date Recorded Body height Body mass index (BMI) Body weight Provider Name and Address Organization Details Last Updated DateTime 06/13/2024 167.64 cm 50 kg/m2 545405.63 g ESTEVAN Carvajal [facility] 06/13/2024 15:46:13 Date Recorded Body height Body mass index (BMI) Body weight Heart rate Respiratory rate Oxygen saturation Oxygen saturation in Arterial blood by Pulse oximetry Systolic And Diastolic Provider Name and Address Organization Details Last Updated DateTime 167.64 cm 44.5 kg/m2 375763. 49 g 101 /min 14 /min 99 % 99 % 123/87 mm[Hg] Юлия Myke [facility] 10:23:40 Date Recorded Body height Body mass index (BMI) Body weight Provider Name and Address Organization Details Last Updated DateTime 08/04/2024 165.1 cm 45.8 kg/m2 124861.9 g Kelley CarrerasJAYNE [facility] 08/04/2024 11:45:28 Date Recorded Body height Heart rate Systolic And Diastolic Provider Name and Address Organization Details Last Updated DateTime 10/25/2023 167.64 cm 111 /min 149/91 mm[Hg] Sloane Petersen [facility] 10/25/2023 11:20:19 Social History Question Answer Notes LastModified by Organizat [employer] Details LastModified Time Tobacco Smoking Status Never Smoker Diane phillips [facility] 05/31/2023 16:28:36 What Is Your Level Of Caffeine Consumption? Occasional [email or web address] Information not available 05/03/2023 What Was The Date Of Your Most Recent Tobacco Screening? 06/13/2024 [email or web address] Information not available 06/13/2024 Sex: Unknown Functional Status Question Answer Note LastModified by Organ[employer]at [employer] Details LastModified Time Do you use any illicit or recreational drugs? No [email or web address] Information not available 05/31/2023 What is your level of alcohol consumption? None [email or web address] Information not available 05/03/2023 Mental Status None recorded. Family History Relationship Description Onset Age of this Age Resolved Age Notes LastModified by Organization Details LastModified Time Mother Heart disease [email or web address] Not available 2022 15:00:13 Father Blood coagulation disorder [email or web address] Not available 2023 16:28:35 Medical History Condition Response OBESITY Y ANXIETY DISORDER Y DEPRESSION (INCLUDING POST ) Y Gynecological HistoryNo gynecological history recorded. Obstetrics History GPAL:G 0 P 0 0 0 0 Immunizations Vaccine Type Date Status Note Provider Nam e and Address Organization Details Recorded Time Hep B, adolescent or pediatric 8 completed Not Available [facility] 05/28/2023 15:51:55 Hep B, adolescent or pediatric 7 completed Not Available [facility] 05/28/2023 15:51:55 Hep B, adolescent or pediatric 7 completed Not Available [facility] 05/28/2023 15:51:55 IPV 5 completed Not Available [facility] 05/28/2023 15:51:55 DTaP 5 completed Not Available [facility] 15:51:56 MMR 4 completed Not Available [facility] 05/28/2023 15:51:55 IPV 3 completed Not Available [facility] 05/28/2023 15:51:55 DTaP 3 completed Not Available [facility] 05/28/2023 15:51:56 MMR 2 completed Not Available [facility] 05/28/2023 15:51:55 Hib (HbOC) 2 completed Not Available [facility] 05/28/2023 15:51:55 IPV 2 completed Not Available [facility] 05/28/2023 15:51:55 DTaP 2 completed Not Available [facility] 05/28/2023 15:51:56 IPV 2 completed Not Available [facility] 05/28/2023 15:51:55 Hib (HbOC) 2 completed Not Available [facility] 05/28/2023 15:51:55 DTaP 1 completed Not Available [facility] 05/28/2023 15:51:56 Hib (HbOC) 1 completed Not Available [facility] 05/28/2023 15:51:56 IPV 1 completed Not Available [facility] 05/28/2023 15:51:55 IPV 1 completed Not Available [facility] 05/28/2023 15:51:55 DTaP 1 completed Not Available [facility] 05/28/2023 15:51:56 Hib (HbOC) 1 completed Not Available [facility] 05/28/2023 15:51:56 HPV, quadrivalent 8 completed Not Available [facility] 05/28/2023 15:51:55 HPV, quadrivalent 8 completed Not Available [facility] 05/28/2023 15:51:55 HPV, quadrivalent 8 completed Not Available [facility] 05/28/2023 15:51:55 DTaP 6 completed Not Available [facility] 05/28/2023 15:51:56 Influenza, split virus, quadrivalent, PF 0 completed Not Available [facility] 05/28/2023 15:51:56 Influenza, split virus, quadrivalent, PF 3 completed BECKA Casillas [address] [place] [address] [address] [address], [place], [address], [facility] 04/17/2023 16:41:29 Past Encounters Encounter ID Performer Location Encounter Start Date Encounter Closed Date Diagnosis/Indication Diagnosis SNOMED-CT Code Diagnosis ICD10 Code Diagnosis Note [id number] Fredy Ellington MD [facility] [place] [address] [place] [address] 07/02/2020 00:00:00 07/02/2020 11:18:57 [id number] Fredy Ellington MD [facility] [place] [address] [place] [address] 08/06/2020 00:00:00 08/07/2020 06:39:49 [id number] Dawit Bishop MD [facility] [address] [place] [address] 09/02/2021 00:00:00 09/02/2021 10:04:02 [id number] Bishop MD [facility] [address] [facility] [place] [address] 10/14/2021 00:00:00 10/14/2021 11:03:53 [id number] Dawit Bishop MD [facility] [place] [address] [facility] [address] [place] [address] 10/21/2021 00:00:00 10/21/2021 14:02:43 [id number] Dawit Bishop MD [facility] [place] [address] [place] [address] 10/28/2021 00:00:00 10/28/2021 14:02:51 [id number] Fredy Ellington MD [facility] [place] [address] [place] [address] [place] [address] 11/26/2021 00:00:00 11/26/2021 20:22:21 [id number] Fredy Ellington MD [facility] [place] [address] [place] [address] [place] [address] 05/04/2022 00:00:00 05/04/2022 19:13:56 [id number] Fredy Ellington MD [facility] [place] [address] [place] [address] [place] [address] 07/03/2022 11:23:02 07/03/2022 11:45:51 Obesity 510525723 E66.9 Increased wegovy to 0.5 mg weekly Elevated blood-pressure reading without diagnosis of hypertension 748902837 R03.0 BP 130/100 Watch salt in diet. Monitor BP away from here. F/u in 1 month. [id number] Fredy Ellington MD [facility] [place] [address] [place] [address] [place] [address] 08/04/2022 16:44:00 08/04/2022 17:12:20 Morbid obesity 874854770 E66.01 F/u in 3 months. Will increase the dosage each month until reaches 2.4 mg weekly. [id number] Fredy Ellington MD [facility] [place] [address] [place] [address] 11/03/2022 10:44:15 11/03/2022 11:13:22 Belching symptom 089096776 R14.2 Use pepcid. Obesity 378471002 E66.9 Is doing infertilit y treatments and has stopped the wegovy x 2 weeks. Anxiety 90238307 F41.9 Tachycardia 4950468 R00. 0 [id number] Fredy Ellington MD [facility] [place] [address] [place] [address] 12/10/2022 16:28:13 12/10/2022 17:22:10 Plantar fasciitis of right foot 2415690567 4084326 M72.2 Injected right heel. If no better than needs to see channel machine operator . Morbid obesity 941650138 E66.01 Try to call around to see if a pharmacy has wegovy in stock and will Rx [id number] Josh Tavarez MD [facility] [place] [address] [place] [address] 02/25/2023 14:41:12 02/25/2023 15:59:58 Osteoarthritis of left knee joint 4639883467 63953 M17.12 Pain of le ft knee joint 8814147096 39016 M25.562 Contusion of left knee 0804080803 8689025 S80.02XA [id number] Fredy Ellington MD [facility] [place] [address] [place] [address] 04/06/2023 15:24:46 04/08/2023 16:34:03 Administration of influenza vaccine 94886290 Z23 [id number] Epi Chapman DPM [facility] [place] [address] [address] 05/03/2023 11:48:22 11/18/2023 11:36:45 Pain in right foot 7068637507 65450 M79.671 Plantar fa sciitis of right foot 0337971858 2708355 M72.2 Injected Rt leg via trigger injection, standard method; applied low-dye strapping and soft cast ot Rt foot, as compressio n dressing Calcaneal spur of right foot 2679425774 19912 M77.31 [id number] Joaquim Frausto DPM [facility] [place] [address] [place] [address] 05/13/2023 15:42:04 06/01/2023 13:05:02 Pain in right foot 8443320832 12400 M79.671 As above Plantar fa sciitis of right foot 3371997741 1766928 M72.2 Recommend Powerstep [employer] orthotics- blueRecomm end athletic supportive walking shoe such as new balanceStr etching and icing instructio ns reviewedX- rays reviewed-p lantar heel spur with anterior cyma line breakingLi mited exercising Steroid injection right plantar aponeurosi s-05/13/19 24Follow-u p 3 weeks possible physical therapy at that time Morbid obesity 085910939 E66.01 Recommend weight loss [id number] Joaquim Frausto DPM [facility] [place] [address] [place] [address] 05/31/2023 16:27:40 06/07/2023 10:48:03 Plantar fasciitis of right foot 3929776227 3397435 M72.2 Recommend Powerstep Dameron orthotics- blueRecomm end athletic supportive walking shoe such as new balanceStr etching and icing instructio ns reviewedX- rays reviewed-p lantar heel spur with anterior cyma line breakingLi mited exercising Steroid injection right plantar aponeurosi s-05/13/19 24, 06/07/23Fol low-up 4 weeks possible physical therapy at that time [id number] Fredy Ellington MD [facility] [place] [address] [place] [address] 06/17/2023 14:41:44 06/17/2023 15:04:40 Anxiety 73650557 F41.9 Attention deficit hyperactivity disorder, 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 Depressive disorder 3548 9007 F32.A Gastroesop hageal reflux disease 328835337 K21.9 Hyperlipidemia 58336007 E78.5 Insomnia 700098005 G47.0 0 Obesity 165703587 E66.9 Osteoarthritis 089644916 M17.12 [id number] Joaquim Frausto DPM [facility] Podiatry [place] [address] [place] [address] 06/28/2023 15:45:39 06/28/2023 17:29:01 Plantar fasciitis of right foot 6415219641 0326562 M72.2 Recommend Powerstep Dameron orthotics- blueRecomm end athletic supportive walking shoe such as new balanceStr etching and icing instructio ns reviewedX- rays reviewed-p lantar heel spur with anterior cyma line breakingLi mited exercising Steroid injection right plantar aponeurosi s-05/13/19 24, 06/07/23Fol low-up, 1 month- finish physical therapy [id number] Joaquim Frausto DPM [facility] [place] [address] [place] [address] 07/19/2023 10:17:46 07/19/2023 11:16:00 Pain in right heel 9844785424 437729 M79.671 patient has failed injections , in physical therapy and shoe gear with continued painrecomm end MRIRx cam bootrice therapy Plantar fa sciitis of right foot 1583678476 0346242 M72.2 Recommend Powerstep Dameron orthotics- blueRecomm end athletic supportive walking shoe such as new balanceStr etching and icing instructio ns reviewedX- rays reviewed-p lantar heel spur with anterior cyma line breakingLi mited exercising Steroid injection right plantar aponeurosi s-05/13/19 24, 06/07/23Fol low-up, 1 month- finish physical therapy- 2 more weeks What for signs of deep venous thrombosis . The sinus consists of swelling of the limb, redness of the limb, and uncontroll ed pain of the calf muscle area. These could be signs of serious complicati on and the patient needs to seek medical attention and medially at the nearest emergency room. [id number] Joaquim Frausto DPM [facility] [place] [address] [place] [address] 08/23/2023 16:10:27 08/25/2023 14:36:58 Pain in right heel 4542183965 906567 M79.671 MRI reviewed- positive for plantar fasciitis Plantar fa sciitis of right foot 8896121124 9656742 M72.2 Recommend Powerstep Dameron orthotics- blueRecomm end athletic supportive walking shoe such as new balanceStr etching and icing instructio ns reviewedX- rays reviewed-p lantar heel spur with anterior cyma line breakingLi mited exercising Steroid injection right plantar aponeurosi s-05/13/19 24, 06/07/23,08/23/23Follow -up, 2 month- possible surgeryedu cated on signs of DVT if present seek medical attention immediatel y [id number] Joaquim Frausto DPM [facility] [place] [address] [place] [address] 10/25/2023 11:14:22 10/25/2023 16:10:11 Pain in right heel 9810985391 723953 M79.671 MRI reviewed- positive for plantar fasciitisR ecommend endoscopic plantar fasciotomy once treatments are completed Plantar fa sciitis of right foot 2249843695 7673924 M72.2 continue Powerstep orthoticsc ontinue supportive shoe gearRice therapy continue and stretching exercisesf ollow-up post treatment for infertilit y [id number] Rene Bang MD [facility] [place] [address] [place] [address] 06/13/2024 15:29:51 06/13/2024 16:33:52 Pain of right knee joint 9111431766 44348 M25.561 Osteoarthr itis of right knee joint 5539217665 70633 M17.11 [id number] Rene Bang MD [facility] [place] [address] [place] [address] 08/04/2024 11:41:45 08/04/2024 12:22:11 Osteoarthritis of right knee joint 5502566089 90986 M17.11 Pain of ri ght knee joint 3456691740 08954 M25.561 Health Concerns Section Related Observation LastModified by Organization Detai ls LastModified Time None Recorded Concern Status LastModified by Organization Details LastModified Time None Recorded Advance Directives Directive None Recorded Payers Insurance Date Sequence Insurance Name Policy Number Policy Mahan Covered Member ID Mahan Member ID Guarantor Name 08/15/2024 1 [facility] ([facility] [id number] Beni Wright [id number] Haven Aguilera [place] 06/13/2024 [facility] Haven M Tonya SELF SELF Haven Aguilera [place] 07/02/2022 3 [employer] (PPO) [id number] Beni Wright [id number] Haven Aguilera Tonya 06/13/2024 2 [facility] (MEDICAID HMO) [id number] Haven Diaz [id number] Haven Wright Notes Date Note Type Note Provider Name and Address Organization Details Recorded Time 07/19/2023 text/html . Patient is a 32-year-old female who returns the office for follow-up on right heel pain and plantar fasciitis. Patient has underwent 2 injections continues to have discomfort. Patient states she is also having burning pain at the heel. Patient denies any signs of infection post injections. Patient have continued supportive shoe gear as well as physical therapy she has about 2 weeks left of physical therapy which she states has not significantly helped to reduce the pain. Patient denies any other complaints. Joaquim Frausto, FAYE [address] [facility] [place], [facility] [address], [place], [address], [facility] 07/19/2023 10:55:00 08/23/2023 text/html . Patient is a 32-year-old female who returns the office for follow-up on plantar fasciitis of the right heel. Patient states overall she has improved since her last visit. Patient states that she has been seeing a chiropractor and has had some adjustments she continues at home stretching, good shoe gear, orthotics, icing, anti-inflammatories. Patient denies any other complaints. Joaquim Frausto DPM [address], [place], [address], [facility] 08/24/2023 13:35:20 10/25/2023 text/html . Patient is a 33-year-old female who returns the office for follow-up on right heel plantar fasciitis. Patient states with current therapy she has improved but states she still has a 5/10 pain. Patient states she is currently working on infertility treatments and will hold off on any further treatment for plantar fasciitis. Patient was recommended to continue stretching, icing, functional orthotics, supportive shoe gear. Patient may return for further discussion of possible endoscopic plantar fasciotomy once she has completed her . Joaquim Frausto DPM [address], [place], [address], [employer] 10/25/2023 11:41:54 06/13/2024 text/html the patient retu rns with a new problem today. She states 3 days ago she was going up some stairs when she had a sudden pop in the right knee which felt like it was anterior in the patellofemoral articulation. She had immediate stabbing pain in the knee which has persisted since that time. She states she has trouble with going upstairs going down is less troublesome. She has aching pain anteriorly she has not tried to squat or kneel because the pain has been pretty significant. She states she has had chronic issues with her left knee had a previous patellar tendon realignment with tibial tubercle osteotomy and fixation with screws. She has quite a bit of chronic popping and cracking in the left knee less so on the right. She denied twisting of the knee did not fall on it states it really did not swell but she has aching pain anteriorly she was concerned about this she came in today for initial evaluation treatment of her right knee as described. Prior to that she was not having any pain in the right knee recently. Has never had a shot of cortisone in the right knee. A new past medical history sheet was reviewed and signed on the intake sheet of today's date drug allergies current medications family social history previous surgical history 10 point review of systems was reviewed and discussed in detail today with the patient. BECKA Serna [address], [place], [address], [employer] [facility] 06/13/2024 16:53:05 08/04/2024 text/html The patient retu rns for recheck of her right knee. Two months ago she had felt a pop in the knee when she was going up some stairs had immediate stabbing pain that had persisted. 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 She has significant crepitation on exam subpatellar region. We treated with a shot of cortisone and oral prednisone. She declined formal therapy. She comes in today stating that her pain now is about a 3 on a scale of 1-10 previously it was way more significant. Three is at the worst days most days it is feeling pretty good and basically pain-free. She wanted to talk about further treatment options for the future she comes in today for recheck and evaluation. BECKA Serna [address], [place], [address], [facility] [employer] [facility] 08/04/2024 12:05:28 OBGyn Episode No OBEpisode recorded.
--- OUTSIDE RECORDS SUMMARY | 2024-10-27 11:38 | XMS_ITS | Clinical Summary ---
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 Name Role Phone Unavailable Primary Care Provider [...] Encounters Date Type Department Care Team Description 10/10/2024 External Device Data ST[facility] ABSTRACTION Provider, Abstract 10/03/2024 External Device Data [facility] ABSTRACTION Provider, Abstract 09/07/2024 External Device Data [facility] ABSTRACTION Provider, Abstract 09/05/2024 External Device Data [facility] ABSTRACTION Provider, Abstract 08/01/2024 External Device Data [facility] ABSTRACTION Provider, Abstract [...] 80 01/21/2024 1:16 PM CDT Temperature 36.1 C (97 F) 01/21/2024 12:59 PM CDT Respiratory Rate 16 01/21/2024 1:16 PM CDT Oxygen Saturation 95% 01/21/2024 1:16 PM CDT Inhaled Oxygen Concentration - - Weight 127.7 kg (281 lb 9.6 oz) 024 12:00 PM CDT Height 165.1 cm (5' 5) 01/21/2024 12:0 0 PM CDT Body Mass Index 46.86 01/21/2024 12:00 PM CDT Plan of Treatment Health Maintenance Due Date Last Done Comments HPV/Cotest (21-29) 10/02/2011 DTAP/TDAP/TD VACCINES (7 - Tdap) 06/10/2015 06/10/2005, 11/16/1994, 05/29/1992, Additional history exists CERVICAL CANCER SCREENING 2020 HPV/Cotest (30-65) 2020 PAP SMEAR 2020 INFLUENZA VACCINE (#1) 2024 04/06/2023, 2019 HEPATITIS B VACCINES Completed 05/02/1997, 02/02/1997, 11/27/1996 HPV VACCINES Completed 03/13/2008, 10/18, 09/13/2007 Insurance [employer] [id number] [employer] ACCESS CHOICE Advance Directives For more information, please contact: [phone] * Full Code (Latest Code Status on File) Date Activated Date Inactivated Comments 01/21/2024 12:36 PM 01/21/2024 3:40 PM
--- OUTSIDE RECORDS SUMMARY | 2024-10-27 11:38 | XMS_ITS | Patient Health Record ---
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 Shop Mechanic Name Role Phone Chirag Storey DO Unavailable [phone] Jomar MILLER, Shameka Unavailable Allergies No Known [...] Problem Status W/U Status Risk Notes Problem Body mass index [BMI] 45.0-49.9, adult (Z68.42) [...] N/A Encounters Encounter Location Date Provider Diagnosis [facility] [address] [place] [address] 01/21/2024 Chirag Storey [facility] [address] [id number] 12/23/2023 Chirag Storey Gastro-esophageal reflux disease without esophagitis K21.9 ; Body mass index [BMI] 45.0-49.9, adult Z68.42 and Nicotine dependence unspecified, with withdrawal F17.203 [facility] [address] [facility] [address] [place], [place] [id number] 12/23/2023 Shameka Hadley Dietary counseling and surveillance [...] Date ESOPHAGOGASTRODUODENOSCOPY 12/23/2023 NICOTINE AND COTININE, URINE ([id number]) 08/2023 Insurance Providers Payer Name Payer Address Payer Phone Subscriber Number Group Number Insured Name Patient Relationship to Insured Coverage Start Date Coverage End Date [employer] [address] [place] [phone] [id number] Haven Castaneda Self - patient is the insured Medical (General) History Medical History History ICD Code anxiety
--- OUTSIDE RECORDS SUMMARY | 2024-10-27 11:38 | XMS_ITS ---
Author Organization [facility] Address [address] [place], [place] [id number] Care Team Providers Care Radio Talk Show Host Name Role Phone Cordelia SHARMA Chirag Unavailable [phone] REASON FOR VISIT egd @ 130 pt aware Encounters Encounter Location Date Provider Diagnosis [facility]GD [address] [place] [address] 01/21/2024 Chirag Storey Plan Of Treatment No Information Progress Notes * Haven WRIGHTDOB:1990 ([age] yo F)Acc No.[id number]:01/21/2024 Patient: Haven MARRERO Provider: Ale Storey DO :1990 A ge:33 Y S ex:Female Date:01/21/2024 Address:[facility] [address] [facility] * Billing Information: * Visit Code: * Procedure Codes: * Electronic signature of Juventino Storey DO, [id number] on 10/27/2024 at 11:37 AM CDT Sign off status: Pending * Provider: Ale Storey DO Date: 1 Generated for Scottyi ng/Fajannette/eTransmitting on: 0 10/27/2024 11:37 AM CDT
--- OUTSIDE RECORDS SUMMARY | 2024-10-27 11:38 | XMS_ITS | Data Portability ---
Author Organization [facility] [place] [facility] Address [address] [place] [address] Care Team Providers Care Transcriptionist Name Role Phone PAULA LOUISE Cork Tipper [phone] Assessment Encounter Date Assessment Date Assessment LastModified by Organization Details LastModified Time 06/23/2019 06/23/2019 MEGAN Solis ([facility]) Not available 06/24/2019 17:04:59 11/03/2019 11/03/2019 MEGAN Lopez, [facility] Not available 11/03/2019 18:54:34 Plan of Treatment Reminders Order Date Submit Date Provider Last Modified By Organization Details Last Modified Time Details Appointments None recorded . Lab pap, IG + reflex HPV 2021 022 JANAY [facility], 2022 Lucas Shrestha, [address], [address], 3 14:10:37 pregnanc y test, urine 2021 022 In-Office Order, Internal Use Only DO Not Attach Compendium DO Not Attach Compendium, Do Not Delete/merge, [id number] 2 16:27:07 urinalys is, dipstick 2019 020 [email or web address] In-Office Order, Internal Use Only DO Not Attach Compendium DO Not Attach Compendium, Do Not Delete/merge, [id number] 0 11:03:24 pregnanc y test, urine 2019 020 [email or web address] In-Office Order, Internal Use Only DO Not Attach Compendium DO Not Attach Compendium, Do Not Delete/merge, [facility] 0 11:03:24 urinalys is, dipstick 2019 020 In-Office Order, Internal Use Only DO Not Attach Compendium DO Not Attach Compendium, Do Not Delete/merge, [id number] 0 16:38:21 pregnanc y test, urine 2019 020 In-Office Order, Internal Use Only DO Not Attach Compendium DO Not Attach Compendium, Do Not Delete/merge, [facility] 0 16:38:22 pregnanc y test, urine 2019 020 [email or web address] In-Office Order, Internal Use Only DO Not Attach Compendium DO Not Attach Compendium, Do Not Delete/merge, [facility] 0 15:55:03 urinalys is, dipstick 2019 020 [email or web address] In-Office Order, Internal Use Only DO Not Attach Compendium DO Not Attach Compendium, Do Not Delete/merge, [id number] 0 15:55:03 CT + NG + TV, DNA, urine/sw ab 2019 020 [place] [facility], 2022 Lucas Shrestha, [address], [address], 0 20:07:41 Referral bariatri c surgery referral 2019 020 Precious Hamilton [place], [address] [place], [address], 0 13:18:32 reproduc tiblayne endocrin ologist referral 2019 020 JANAY Dukes, [address], [place], [address], 1 17:39:27 Procedures None recorded . Surgeries None recorded . Imaging US, breast, bilatera l 2019 020 [facility], [address], [place], [address], 0 16:32:43 Medication Orders medroxyp rogester one 10 mg tablet 2021 022 [id number], [address], [place], [address], 2 16:27:09 spironol actone 100 mg tablet 2019 020 [facility], [address] [place] [address], [address], 2 16:01:59 glyburid e 1.25 mg tablet 2019 020 [facility], [address] [place] [address], [address], 2 16:00:51 multivit roman tablet 2019 020 [facility], [address] [place] [address], [address], 2 16:01:27 Calcium with Vitamin D 600 mg-10 mcg (400 unit) tablet 2019 020 [facility], [address] [place] [address], [address], 2 16:00:41 28 mg iron-800 mcg tablet 2019 020 [facility], [address] [place] [address], [address], 0 16:38:32 Patient TargetsNo targets recorded. Patient Instructions Encounter Date Encounter Id Patient Instructions Last Modified By Organization Details Last Modified Time 06/23/2019 [id number] A healthy lifestyle: care instructions Not available 06/26/2019 16:47:50 polycystic ovary syndrome: care instructions Not available 06/26/2019 16:38:51 learning about planning for future Not available 06/26/2019 16:38:35 09/27/2019 [id number] A healthy lifestyle: care instructions jessie Not available 09/27/2019 10:15:10 04/16/2022 [id number] Well Visit, Ages 18 to 65: Care Instructions Not available 04/16/2022 16:27:07 A healthy lifestyle: care instructions Not available 04/16/2022 16:27:10 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 for Polycystic ovary syndrome Primary infertlity with BMI 53.6 Referring Physician: Musa Irwin PASTORAL WORKER, Encounter Date: 09/27/2019 Bariatric Surgery Referral f or Morbid obesity BMI 53.6 Referring Physician: Musa Irwin PASTORAL WORKER, Encounter Date: 09/27/2019 Results Created Date Observation Date Name Description Value Unit Range Abnormal Flag Note LastModifiedBy Organization Detail LastModifiedTime 09/27/19 20 09/27/2019 pregn lore test, urine HCG negati ve Not Available In-Office Order Internal Use Only DO Not Attach Compendium DO Not Attach Compendium, Do Not Delete/merge, [id number] 09/27/2019 10:02:28 06/23/19 20 06/23/2019 pregn lore test, urine HCG negati ve Not Available In-Office Order Internal Use Only DO Not Attach Compendium DO Not Attach Compendium, Do Not Delete/merge, [id number] 06/23/2019 11:22:19 06/23/1906/23/2019 urina lysis , dipst ick Leukocytes Negati ve Not Available In-Office Order Internal Use Only DO Not Attach Compendium DO Not Attach Compendium, Do Not Delete/merge, [id number] 06/23/2019 11:21:51 06/23/19 20 06/23/2019 urina lysis , dipst ick Nitrite negati ve Not Available In-Office Order Internal Use Only DO Not Attach Compendium DO Not Attach Compendium, Do Not Delete/merge, [id number] 06/23/2019 11:21:51 06/23/19 20 06/23/2019 urina lysis , dipst ick Urobilinogen .2 Not Available In-Of fice Order Internal Use Only DO Not Attach Compendium DO Not Attach Compendium, Do Not Delete/merge, [id number] 06/23/2019 11:21:51 06/23/19 20 06/23/2019 urina lysis , dipst ick Protein Negati ve Not Available In-Office Order Internal Use Only DO Not Attach Compendium DO Not Attach Compendium, Do Not Delete/merge, [facility] 06/23/2019 11:21:51 06/23/19 20 06/23/2019 urina lysis , dipst ick pH 5.5 Not Available In-Office Order Internal Use Only DO Not Attach Compendium DO Not Attach Compendium, Do Not Delete/merge, [id number] 06/23/2019 11:21:51 06/23/19 20 06/23/2019 urina lysis , dipst ick Blood Modera te Not Available In-Office Order Internal Use Only DO Not Attach Compendium DO Not Attach Compendium, Do Not Delete/merge, [id number] 06/23/2019 11:21:51 06/23/19 20 06/23/2019 urina lysis , dipst ick Specific Levels 1.025 Not Available In-Off ice Order Internal Use Only DO Not Attach Compendium DO Not Attach Compendium, Do Not Delete/merge, [id number] 06/23/2019 11:21:51 06/23/19 20 06/23/2019 urina lysis , dipst ick Ketone Negati ve Not Available In-Office Order Internal Use Only DO Not Attach Compendium DO Not Attach Compendium, Do Not Delete/merge, [id number] 06/23/2019 11:21:51 06/23/19 20 06/23/2019 urina lysis , dipst ick Bilirubin Negati ve Not Available In-Office Order Internal Use Only DO Not Attach Compendium DO Not Attach Compendium, Do Not Delete/merge, [id number] 06/23/2019 11:21:51 06/23/19 20 06/23/2019 urina lysis , dipst ick Glucose Negati ve Not Available In-Office Order Internal Use Only DO Not Attach Compendium DO Not Attach Compendium, Do Not Delete/merge, 06/23/2019 11:21:51 05/30/1905/30/2019 urina lysis , dipst ick Leukocytes Negati [...] 05/30/2019 urina lysis , dipst ick Specific Levels 1.030 Not Available In-Off ice Order Internal Use Only DO Not Attach Compendium DO Not Attach Compendium, Do Not Delete/merge, 05/30/2019 15:43:16 05/30/19 20 05/30/2019 urina lysis , dipst ick Ketone Negati ve Not Available In-Office Order Internal Use Only DO Not Attach Compendium DO Not Attach Compendium, Do Not Delete/merge, [id number] 05/30/2019 15:43:16 05/30/19 20 05/30/2019 urina lysis , dipst ick Bilirubin Negati ve Not Available In-Office Order Internal Use Only DO Not Attach Compendium DO Not Attach Compendium, Do Not Delete/merge, [id number] 05/30/2019 15:43:16 05/30/19 20 05/30/2019 urina lysis , dipst ick Glucose Negati ve Not Available In-Office Order Internal Use Only DO Not Attach Compendium DO Not Attach Compendium, Do Not Delete/merge, 05/30/2019 15:43:16 05/30/19 20 05/30/2019 pregn lore test, urine HCG negati ve Not Available In-Office Order Internal Use Only DO Not Attach Compendium DO Not Attach Compendium, Do Not Delete/merge, [id number] 05/30/2019 15:43:02 05/30/19 20 06/01/2019 CT + NG + TV, DNA, urine /swab chlamydia by NOMI NEGATI VE negati ve Not Available [facility] ([facility]) [address] [place] [address], [address], 06/01/2019 20:07:41 05/30/19 20 06/01/2019 CT + NG + TV, DNA, urine /swab gonococcus by NOMI NEGATI VE negati ve Not Available [facility] ([facility]) [address] [place], [address], 06/01/2019 20:07:41 05/30/19 20 06/01/2019 CT + NG + TV, DNA, urine /swab trich vag by NOMI NEGATI VE negati ve Not Available [facility] ([facility]) [address] [place], [address], 06/01/2019 20:07:41 09/27/19 20 09/27/2019 urina lysis , dipst ick Leukocytes Negati ve Not Available In-Office Order Internal Use Only DO Not Attach Compendium DO Not Attach Compendium, Do Not Delete/merge, [facility] 09/27/2019 10:01:36 09/27/19 20 09/27/2019 urina lysis , dipst ick Nitrite negati ve Not Available In-Office Order Internal Use Only DO Not Attach Compendium DO Not Attach Compendium, Do Not Delete/merge, [facility] 09/27/2019 10:01:36 09/27/19 20 09/27/2019 urina lysis , dipst ick Urobilinogen .2 Not Available In-Of fice Order Internal Use Only DO Not Attach Compendium DO Not Attach Compendium, Do Not Delete/merge, [facility] 09/27/2019 10:01:36 09/27/19 20 09/27/2019 urina lysis , dipst ick Protein Negati ve Not Available In-Office Order Internal Use Only DO Not Attach Compendium DO Not Attach Compendium, Do Not Delete/merge, [facility] 09/27/2019 10:01:36 09/27/19 20 09/27/2019 urina lysis , dipst ick pH 5.5 Not Available In-Office Order Internal Use Only DO Not Attach Compendium DO Not Attach Compendium, Do Not Delete/merge, [facility] 09/27/2019 10:01:36 09/27/19 20 09/27/2019 urina lysis , dipst ick Blood Small Not Available In-Office Order Internal Use Only DO Not Attach Compendium DO Not Attach Compendium, Do Not Delete/merge, [facility] 09/27/2019 10:01:36 09/27/19 20 09/27/2019 urina lysis , dipst ick Specific Levels 1.030 Not Available In-Off ice Order Internal Use Only DO Not Attach Compendium DO Not Attach Compendium, Do Not Delete/merge, [facility] 09/27/2019 10:01:36 09/27/19 20 09/27/2019 urina lysis , dipst ick Ketone Negati ve Not Available In-Office Order Internal Use Only DO Not Attach Compendium DO Not Attach Compendium, Do Not Delete/merge, [facility] 09/27/2019 10:01:36 09/27/19 20 09/27/2019 urina lysis , dipst ick Bilirubin Negati ve Not Available In-Office Order Internal Use Only DO Not Attach Compendium DO Not Attach Compendium, Do Not Delete/merge, [id number] 09/27/2019 10:01:36 09/27/19 20 09/27/2019 urina lysis , dipst ick Glucose Negati ve Not Available In-Office Order Internal Use Only DO Not Attach Compendium DO Not Attach Compendium, Do Not Delete/merge, [id number] 09/27/2019 10:01:36 04/16/20 22 04/16/2022 IGP,A PTIMA HPV,A GE GDLN age gdln acog testing 30-65 Not Available [facility] ([facility]) [address] [facility], [place], [address], 04/23/2022 14:10:37 04/16/20 22 04/17/2022 IGP, APTIM A HPV, RFX 16/18 ,45 HPV aptima Negati ve negati ve This nucle ic acid ampli ficat ion test detec ts fourt een high- risk HPV types (16,1 8,31, 33,35 ,39,4 5,51, 52,56 ,58,5 9,66, 68) witho ut diffe renti ation . Not Available [facility] ([facility]) [address] [facility], [place], [address], 04/23/2022 14:10:38 04/16/20 22 04/23/2022 IGP, APTIM A HPV, RFX 16/18 ,45 diagnosis: Commen t NEGAT RASHEL FOR INTRA EPITH ELIAL LESIO N OR KELLY ORTEGA . Not Available [facility] ([facility]) [address] [facility], [place], [address], 04/23/2022 14:10:38 04/16/20 22 04/23/2022 IGP, APTIM A HPV, RFX 16/18 ,45 specimen adequacy: Commen t Satis facto ry for evalu ation . Endoc ervic al and/o r squam ous metap lasti c cells (endo cervi isabelle compo nent) are prese nt. Not Available [facility] ([facility]) [address] [facility], [place], [address], 04/23/2022 14:10:38 04/16/20 22 04/23/2022 IGP, APTIM A HPV, RFX 16/18 ,45 clinician provided ICD10: Jua nA fonseca Z01.4 19 Not Available [facility] ([facility]) [address] [place], [address], 04/23/2022 14:10:38 04/16/20 22 04/23/2022 IGP, APTIM A HPV, RFX 16/18 ,45 performed by: Josselyn Freeman (ASCP ) Not Available [facility] ([facility]) [address] [place], [address], 04/23/2022 14:10:38 04/16/20 22 04/23/2022 IGP, APTIM A HPV, RFX 16/18 ,45 . . Not Available [facility] ([facility]) [address] [place], [address], 04/23/2022 14:10:38 04/16/20 22 04/23/2022 IGP, APTIM A HPV, RFX 16/18 ,45 note: Juan A fonseca The Pap smear is a scree anthony test katarina pérez to aid in the detec tion of jyoti ligna nt and malig nant condi tions of the uteri ne cervi x. It is not a diagn ostic proce dure and shoul d not be used as the sole means of detec ting cervi isabelle cance r. Both false -posi tive and false -nega tive repor ts do occur . Not Available [facility] ([facility]) [address] [place], [address], 04/23/2022 14:10:38 04/16/20 22 04/23/2022 IGP, APTIM A HPV, RFX 16/18 ,45 test methodology: Commen t This liqui d based ThinP rep(R ) pap test was jenny pérez with the use of an image guide nirav potts Not Available [facility] ([facility]) [address] [facility], [place], [address], 04/23/2022 14:10:38 04/16/20 22 04/23/2022 IGP, APTIM A HPV, RFX 16/18 ,45 HPV genotype reflex Commen t Crite veda not met, HPV Genot ype not perfo rmed. Not Available [facility] ([facility]) [address] [facility], [place], [address], 04/23/2022 14:10:38 04/16/20 22 04/16/2022 pregn lore test, urine HCG negati ve Not Available In-Office Order Internal Use Only DO Not Attach Compendium DO Not Attach Compendium, Do Not Delete/merge, [id number] 04/16/2022 16:08:46 11/27/19 20 11/27/2019 US, freddie vasquez No observ ation record ed. [address] ([facility]) [address], [place], [address], 04/16/2022 16:27:24 Result Notes None recorded. 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 2018 Musa phillips, [place] - [facility] 9 10:23:31 Polycysti c ovary syndrome 284348772 Active 2019 Musa phill[place], [place] - [facility] 0 10:07:00 Anxiety 31656765 Active Musa Irwin null[place] - [facility] 6 12:07:25 Polycysti c ovaries Completed 09/27/2019 Musa [place] [facility] 0 10:07:05 Vaginitis 73065227 Active Musa [place]ill[place], [place] - [facility] 6 12:07:25 Vulvitis 39746210 Active Musa phillips, [facility] 6 12:07:25 Gastroeso phageal reflux disease 667363945 Active Musa phillips, [facility] 6 12:07:25 Bacterial vaginosis 370228839 Active Musa phillips, [facility] 6 12:07:25 Candidias is of vagina 41143637 Active Musa phillips, [facility] 6 12:07:25 Candidal vulvovagi nitis 91681374 Active Musa phillips, [facility] 6 12:07:25 Obesity 265514639 Completed 201609/27/2019 Musa phillips, [facility] 0 10:13:03 Problem Notes None recorded. Procedures Surgical History Date Name Laterality Status Provider Name and Address Organization Details Recorded Time 04/16/20 22 Date of Last Pap Smear completed Rose Marie Hawk [place] - [facility] 04/16/2022 15:45:07 06/23/19 20 Control Implant Removal completed BECKA PEREZ Attn: Accounting[address] [place], [address], [facility] - [facility] 06/24/2019 16:55:45 03/29/20 19 Control Implant Insertion completed Shi Miles [place] - [facility] 03/29/2019 17:26:20 12/31/19 19 IUD Removal completed BECKA PEREZ Attn: Accounting[address] [place], [address], [facility] - [facility] 12/30/2018 14:04:47 07/26/19 19 IUD Insertion completed Rose Marie Hawk [place] - [facility] 07/25/2018 16:56:53 04/19/19 14 Orthopedic Surgery completed ARLETTE Harper - [facility] 06/20/2014 11:36:23 04/19/19 14 Tonsillectomy completed Alaina Briseno MA [facility] 06/20/2014 11:36:23 Imaging Results None recorded. Procedure Notes None recorded. Medical Equipment None Reported. Allergies Allergen ID Allergen Name Allergen Category Reaction Reaction Severity Criticality Documentation Date Start Date Code Code System Note Provider Name and Address Organization Details Recorded Time 99670 Milk (substanc e) food,medi cation nausea mild Not available 06/20/2014 21391 002 SNOMED Alaina ARLETTE Briseno jacqueline, [facility] 5 11:36:24 12229 Zoloft medicatio n facial swelling Not available Not available 06/20/2014 53636 RxNorm Musa phillips, [facility] 9 17:03:48 Medications Name Sig Start Date Stop Date [...] Available No t Available Sprintec (28) 0.25 mg-0.035 mg tablet active Not Available Not Available No t Available bupropion HCl XL 300 mg 24 [...] by oral route. 03/22 completed 340B Program [employer]LE [employer]ER Not Available Not Available Not Available Kyleena 17.5 mcg/24 hr (up to 5 years) 19.5 mg intrauter ine device Take 1 device by intraute rine route. 12/30 completed Not Available Not Available Not Available Tab-A-Vit e 400 mcg tablet TAKE 1 TABLET BY MOUTH ONCE DAILY 04/16 completed Not Available Not Available Not Available Vitals Date Recorded Body height Body mass index (BMI) Body weight Systolic And Diastolic Provider Name and Address Organization Details Last Updated DateTime 05/30/2019 165.1 cm 52.8 kg/m2 105469.78 g 112/86 mm[Hg] Rose Marie Hawk MA [facility] 05/30/2019 15:32:19 Date Recorded Body height Body mass index (BMI) Body weight Systolic And Diastolic Provider Name and Address Organization Details Last Updated DateTime 06/23/2019 165.1 cm 53.1 kg/m2 040670.97 g 104/68 mm[Hg] Rose Marie Hawk MA [facility] 06/23/2019 11:21:01 Date Recorded Body height Body mass index (BMI) Body weight Systolic And Diastolic Provider Name and Address Organization Details Last Updated DateTime 09/27/2019 165.1 cm 53.6 kg/m2 875908.74 g 110/70 mm[Hg] Kaley [place] MA [facility] 09/27/2019 09:55:53 Date Recorded Body height Body mass index (BMI) Body weight Heart rate Oxygen saturation Oxygen saturation in Arterial blood by Pulse oximetry Body temperature Systolic And Diastolic Provider Name and Address Organization Details Last Updated DateTime 0 165.1 cm 52.8 kg/m2 632532. 78 g 112 /min 99 % 99 % 98.3 [degF] 122/82 mm[Hg] Kaley [place] MA [facility] 0 13:10:15 Date Recorded Body height Body mass index (BMI) Body weight Systolic And Diastolic Provider Name and Address Organization Details Last Updated DateTime 04/16/2022 165.1 cm 52.1 kg/m2 155670.41 g 116/80 mm[Hg] Rose Marie Hawk MA [facility] 04/16/2022 16:07:29 Social History Question Answer Notes LastModified by Organizat ion Details LastModified Time Tobacco Smoking Status Never Smoker Alaina Briseno MA null, [facility] 06/20/2014 11:36:24 Do You Have An Advance Directive? No Information not available 06/20/2014 Is Blood Transfusion Acceptable In An Emergency? Yes Information not available 06/20/2014 What Is Your Level Of Caffeine Consumption? Moderate Soda Information not available 07/25/2018 How Much Tobacco Do You Chew? None Information not available 06/20/2014 What Type Of Diet Are You Following? REGULAR Information not available 06/20/2014 Which Illicit Or Recreational Drugs Have You Used? None Information not available 06/20/2014 Education 2 Year College Information not available 06/20/2014 Live Alone Or With Others? With Others [...] Smoke? No Information no t available 04/16/2022 How Much Tobacco Do You Smoke? No [email or web address] Information not available 01/16/2016 General Stress Level Medium Information not available 07/25/2018 Do You Use Sunscreen Routinely? Yes Information not available 07/25/2018 Has Tobacco Cessation Counseling Been Provided? No Information not available 04/16/2022 On What Date Was Tobacco Cessation Counseling Provided? 04/16/2022 Information not available 04/16/2022 How Many Years Have You Smoked Tobacco? 0 [email or web address] Information not available 05/30/2019 Sex: Unknown Functional Status Question Answer Note LastModified by Organizat ion Details LastModified Time Do you use any illicit or recreational drugs? No Information not available 04/16/2022 Do you or have you ever used any other forms of tobacco or nicotine? No Information not available 04/16/2022 What is your level of alcohol consumption? Occasional Information not available 06/20/2014 Do you or have you ever used smokeless tobacco? Never used smokeless tobacco Information not available 03/29/2019 Are you currently employed? 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 Never used electronic cigarettes Information not available 03/29/2019 What is your exercise level? None Information [...] virus, quadrivalent, preservative 6 completed Not Available [facility] 05/06/2019 02:32:32 Influenza, split virus, quadrivalent, preservative 8 completed Not Available [facility] 05/06/2019 02:36:57 Influenza, split virus, quadrivalent, preservative 2 completed BECKA PEREZ Attn: Accounting[address] [place], [address], [facility] - [facility] 05/05/2022 13:36:05 HPV, quadrivalent 5 completed Not Available [facility] 05/06/2019 02:30:42 Hep A-Hep B 5 completed [facility] Available [facility] 05/06/2019 02:30:51 Past Encounters Encounter ID Performer Location Encounter Start Date Encounter Closed Date Diagnosis/Indication Diagnosis SNOMED-CT Code Diagnosis ICD10 Code Diagnosis Note [id number] MD Alisha Barrera (PASTORAL WORKER) [address] [place] [phone] 06/20/2014 10:31:35 06/20/2014 12:11:13 Gynecologic examination 06350394 Polycystic ovaries 39345568 [id number] [facility] [address] [place] [id number] 02/26/2015 10:37:08 02/26/2015 13:10:30 Gynecologic examination 68311076 Z01.419 Vaginitis 42622649 N76.0 Vulvitis 98980208 N76.2 Polycystic ovaries 40927 008 E28.2 Active or passive immunization 271420789 Z23 Gastroesop hageal reflux disease 293213328 K21.9 [id number] [facility] [address] [place] [phone] 07/31/2015 10:27:24 07/31/2015 15:03:29 Polycystic ovaries 96895973 E28.2 Venereal d isease screening 496805818 Z11.3 Candidal vulvovaginitis 67181686 B37.3 [id number] MD Alisha Barrera (PASTORAL WORKER) [address] [place] [id number] 01/16/2016 11:24:13 01/16/2016 15:33:16 Polycystic ovaries 64578727 E28.2 cervical stenosis Active or passive immunization 950995717 Z23 [id number] Musa Irwin MD [place] (PASTORAL WORKER) [address] [place] [address] 0 08/12/2016 11:01:25 08/13/2016 15:14:05 Polycystic ovaries 29735427 E28.2 Family jennifer nning surveillance 201485083 Z30.09 Obesity 215196208 E66.9 [id number] MD Alisha Barrera (PASTORAL WORKER) [address] [place] [address] 0 03/22/2018 10:17:29 03/22/2018 11:54:20 Polycystic ovaries 67696136 E28.2 Family jennifer nning surveillance 884981512 Z30.09 Primary infertility 2971 73747 N97.0 Gynecologi c examination 46392889 Z01.419 Z11.51 Exposure t o sexually transmissible disorder 657193651 Z20.2 Administra tion of influenza vaccine 01981194 Z23 [id number] MD Alisha Barrera (PASTORAL WORKER) [address] [place] [address] 0 05/26/2018 15:11:55 05/27/2018 15:21:29 Family planning surveillance 458302324 Z30.09 Obesity 501534173 Z68.43 Polycystic ovaries 62268 008 E28.2 [id number] MD Alisha Barrera (PASTORAL WORKER) [address] [place] [address] 0 07/25/2018 16:00:40 07/26/2018 11:47:21 Insertion of intrauterine contraceptive device 20653559 Z30.430 Polycystic ovaries 35267 008 E28.2 Obesity 672984055 Z68.43 Family jennifer nning surveillance 598221291 Z30.09 Exposure t o sexually transmissible disorder 248969827 Z20.2 Anxiety 91044985 F41.9 [id number] MD Alisha Barrera (PASTORAL WORKER) [address] [place] [address] 0 09/26/2018 16:00:00 09/28/2018 13:03:16 Family planning surveillance 209019112 Z30.09 Generalize d anxiety disorder 15106432 F41.[address] Brendan Mesa [id number] MD Alisha Barrera (PASTORAL WORKER) [address] [place] [address]21[address]986 0 11/15/2018 14:21:14 11/17/2018 12:55:01 Surveillance of intrauterine device contraception done 7477799949 62092 Z30.40 At increas ed risk of sexually transmitted infection 447332582 Z20.2 Family jennifer nning surveillance 248813949 Z30.09 [id number] BECKA PEREZ (PASTORAL WORKER) [address] [place] [address]1610[address]454 0 12/30/2018 11:33:11 01/02/2019 11:57:38 Family planning surveillance 775988103 Z30.09 Discussed different BC options with pt. She would like to try Nexplanon. Pt to return to clinic next week for insertion. Removal of intrauterine device 59731606 Z30.317 [id number] MD Alisha Barrera (PASTORAL WORKER) [address] [place] [address] 36886[address]693 0 03/29/2019 16:42:40 03/30/2019 10:25:17 Implantation of subcutaneous contraceptive 029140615 Z30.9 At increas ed risk of sexually transmitted infection 276116753 Z20.2 Upper resp iratory infection 73980127 J06.9 Family jennifer nning surveillance 926480647 Z30.09 [id number] [facility] [address] [place] [address]59[address]549 0 05/30/2019 14:46:02 05/31/2019 10:05:42 Subcutaneous contraceptive implant palpable 154201280 Z30.46 At increas ed risk of sexually transmitted infection 389095835 Z20.2 Family jennifer nning surveillance 619766857 Z30.09 [id number] BECAK PEREZ (PASTORAL WORKER) [address] [place] [address] 79372[address]452 0 06/23/2019 10:40:57 06/23/2019 13:02:27 Removal of subcutaneous contraceptive 032243652 Z30.46 Advised return to fertility within 1-2 weeks. Polycystic ovary syndrome 504079744 E28.2 Reproducti ve care management 729972228 Z31.9 She is a patient of Dr. [...] Body mass index 40+ - severely obese 748765609 Z68.43 [id number] MD Alisha Barrera (PASTORAL WORKER) [address] [place] [address]25-205 0 09/27/2019 09:34:41 09/28/2019 08:08:37 Family planning surveillance 524287114 Z30.09 Polycystic ovary syndrome 094246047 E28.2 failed medical management Morbid obesity 844298258 E66.01 BMI 53.6 Polycystic ovaries 21440 008 E28.2 [id number] BECKA PEREZ (PASTORAL WORKER) [address] [place] [address]115[address]003 0 11/03/2019 12:40:23 11/06/2019 10:33:31 Mastodynia of bilateral breasts 9957478945 8542770 N64.4 Right nipple with abnormal tenderness , otherwise unremarkab le exam. Reassured patient that some tenderness is normal with hormonal changes. Advised supportive bra (without underwire) , OTC ibu as needed, warm compresses , low fat diet. Pt requests imaging, f/u US. [id number] BECKA PEREZ (PASTORAL WORKER) [address] [place] [address] 67391[address]331 0 04/16/2022 15:32:19 04/21/2022 16:08:52 Gynecologic examination 22220293 Z01.419 Cervical cancer screening: Last Pap 03/22/2018 NILM, updated todayBreas t cancer screening: Reviewed recommenda tions for initiation at age 40 with annual screening. Discussed SBESTI screening: declinedCo ntraceptio n: not practicedD iet/exerci se: Counseled regarding importance of physical activity, healthy diet and appropriat e calcium intake. Polycystic ovary syndrome 312739802 E28.2 Following with fertility specialist . Has been amenorrhei c since June 2021. Long discussion on PCOS and increased risk for endometria l cancer with prolonged amenorrhea . Will send Provera for patient to induce bleeding for endometria l protection . She does not wish to be on control at this time due to TTC. Morbid obesity 603738545 E66.01 BMI 52.1. Pt has questions about [...] nsaturated fats. Administra tion of influenza vaccine 26351122 Z23 Annual flu shot requested. Health Concerns Section Related Observation LastModified by Organization Detai ls LastModified Time None Recorded Concern Status LastModified by Organization Details LastModified Time None Recorded Advance Directives Directive N: Payers Insurance Date Sequence Insurance Name Policy Number Policy Mahan Covered Member ID Mahan Member ID Guarantor Name 05/07/2022 3 [place] Haven Tonya [id number] Haven Castaneda 05/07/2022 2 [facility] (MEDICAID HMO) [id number] Haven Joe [id number] Haven Tonya 05/07/2022 1 [facility] (PPO) [id number] Beni Castaneda [id number] Haven Tonya Notes Date Note Type Note Provider Name [...] and brown discharge x 1 month. Musa phillips, [facility] 05/30/2019 16:58:41 0 text/html Abnormal BleedingReported bypatient.Onset/Timing:p [...] to conceive. BECKA PEREZ Attn: Accounting,[address] [place], [address], [facility] 06/26/2019 16:54:22 0 text/html InfertilityReported bypatient.Duration:tryin g [...] Nexplanon removed wants to get Musa phillips, [facility] 09/27/2019 11:03:22 0 text/html Breast PainReported [...] diagnosed at Stage IV. BECKA PEREZ Attn: Accounting, [place], [address], [facility] 11/06/2019 09:31:54 2 text/html Annual GYNReported bypatient.History:no [...] amenorrheic since June 2021. BECKA PEREZ Attn: Accounting, [address] [place], [address], [facility] 05/05/2022 13:43:59 OBGyn Episode No OBEpisode recorded.
[2024-10-27 12:36] LABS: Alanine Aminotransferase 19 U/L (6-35); Albumin Level 4.3 g/dL (3.5-5.1); Alkaline Phosphatase 56 U/L (38-126); Amylase 68 U/L (30-110); Aspartate Amino Transferase 28 U/L (14-36); Bilirubin,Total 0.4 mg/dL (0.2-1.3); Lipase 71 U/L (23-300); Total Protein 7.9 g/dL (6.3-8.2)
== END 2024-10-27 11:32 | disposition home or self-care (01) ==
LOC: ANHSURGERY 11:35
PROVIDERS: PCP Family Medicine; Visit Provider Surgery
DX: Z01.812 Encounter for preprocedural laboratory examination (principal)
CPT/HCPCS: 36415; 80076; 82150; 83690; 86850; 86900; 86901

== ENCOUNTER 2024-11-02 00:59 | Day surgery (SDC) | payer BC, SELFPAY ==
[2024-10-26 15:27] VITALS: BMI 45.7
--- NOTE | 2024-10-26 15:31 | SUR.PREOP ---
Report to the Outpatient Waiting Room, entrance under the green pavilion located off [facility], at time ___06___ on date ____[id number]___. Planned Procedure Time: .? Time changes happen often and if your time is changed the preop area will call you the afternoon before. - You and your visitor will be asked to self-screen and do not enter if you have any COVID symptoms. Please call surgeon if you need to reschedule. - A mask is optional within the hospital at this time. Patients may have clear liquids (water, carbonated beverages, clear teas, apple juice) until 3 hours prior to surgery with a maximum of 20 ounces. - No food from midnight until time of surgery and no smoking, or chewing tobacco (or any form of nicotine). No chewing gum, candy or mints. - Infants may have breast milk until 4 hours before surgery, formula 6 hours prior to surgery. - Children will be allowed to drink immediately following surgery.? If applicable, please bring a bottle or sippy cup to assist with drinking. Juice, water, soda, and popsicles are readily available.? For infants on formula, please bring formula the day of surgery.? Pacifiers are allowed. Take only the following medications with a SIP of water on the morning of surgery: ___Buspirone, Sertraline DO NOT STOP ANY OF YOUR OTHER PRESCRIPTION MEDICATIONS PRIOR TO SURGERY EXCEPT THE FOLLOWING Hold all vitamins and supplements for 3 days per anesthesiologist. Medications to discontinue per physician Hold Zepbound for 10 days Date to take last dose Please no make-up, nail english, hairspray, perfume, deodorant, or body powder the day of surgery.? No jewelry (including any body piercings) or valuables the day of surgery, leave them at home.? Please take a shower or bath the night before, or the morning of, surgery with an antibacterial soap.? Wear comfortable, loose fitting clothing.? Children are encouraged to wear pajamas. - Jewelry must be removed prior to entering the operating room.? Rings and piercings that are not removed may be cut off. - The hospital will not accept responsibility for valuables.? - Please leave all valuables, including medications, at home the day of surgery. If you are going home after surgery, a licensed hazardous materials tanker driver must drive you home.? - NO public transportation without another adult if you receive anesthesia. - We recommend that an adult stay with you for 24 hours following discharge. - We also recommend that you do not drive, make important decision, drink alcoholic beverages, or take any drugs that were not prescribed by your health care provider for at least 24 hours after your discharge time. For Pediatric surgeries, we recommend two adults accompany the child home. Follow any additional instructions given to you from your surgeon. Telephone instructions given to [place] and asked if any additional questions and then verbalized understanding. Patient advised to call surgeon office or pre surgery nurse liaison [phone] if any additional questions.
[2024-11-02] VITALS (10 sets, daily range): BP systolic 111–125; BP diastolic 66–97; PULSE 66–93; RESP 16–24; TEMP 36.2–36.8; O2SAT 93–100
--- OUTSIDE RECORDS SUMMARY | 2024-11-02 01:02 | XMS_ITS ---
Author Organization [facility] Address [address] [place], [place] [address] Care Team Providers Care Human Resources District Manager Name Role Phone Cordelia SHARMA Chirag Unavailable [phone] REASON FOR VISIT egd @ 130 pt aware Encounters Encounter Location Date Provider Diagnosis [facility] EGD [address] [place] [address] 01/21/2024 Chirag Storey Plan Of Treatment No Information Progress Notes * Haven WRIGHTDOB:1990 ([age] yo F)Acc No.[id number]:01/21/2024 Patient: Haven MARRERO Provider: Ale Storey DO :1990 A ge:33 Y S ex:Female Date:01/21/2024 Address:[facility] [address] Shrestha [facility] * Billing Information: * Visit Code: * Procedure Codes: * Electronic signature of Juventino Storey DO, [id number] on 11/02/2024 at 01:02 AM CDT Sign off status: Pending * Provider: Ale Storey DO Date: 1 Generated for Karlos ng/Tamy/eTransmitting on: 0 11/02/2024 01:02 AM CDT
--- OUTSIDE RECORDS SUMMARY | 2024-11-02 01:02 | XMS_ITS | Patient Health Record ---
Author Organization [facility]ht Loss Address [address] [facility] [address] [place], [place] [address] Care Team Providers Care Property Specialist Name Role Phone Chirag Storey DO Unavailable [phone] Jomar MILLER, Shameka Unavailable Allergies No Known [...] Status Risk Notes Problem Body mass index 40+ - severely obese ([id number]) Body mass index [BMI] 45.0-49.9, adult (Z68.42) [...] N/A Encounters Encounter Location Date Provider Diagnosis [facility] EGD [address] [place] [address] 01/21/2024 Chirag Storey [facility] [address] [id number] 12/23/2023 Chirag Storey Gastro-esophageal reflux disease without esophagitis K21.9 ; Body mass index [BMI] 45.0-49.9, adult Z68.42 and Nicotine dependence unspecified, with withdrawal F17.203 [facility] [address] [id number] 12/23/2023 Shameka Hadley Dietary counseling and surveillance [...] Date ESOPHAGOGASTRODUODENOSCOPY 12/23/2023 NICOTINE AND COTININE, URINE ([id number]) 08/2023 Insurance Providers Payer Name Payer Address Payer Phone Subscriber Number Group Number Insured Name Patient Relationship to Insured Coverage Start Date Coverage End Date [employer] [address] [place] [phone] [id number] Haven Castaneda Self - patient is the insured Medical (General) History Medical History History ICD Code anxiety
--- OUTSIDE RECORDS SUMMARY | 2024-11-02 01:02 | XMS_ITS | Continuity of Care Document ---
Author Organization [facility] Address [address] [facility] [address] [place] [address] Phone Care Team Providers Care Plumber Maintenance Name Role Phone Ronald Lance PT Unavailable Unavailable Procedures Procedure Date Therapeutic Activities Neuromuscular Re-Ed Therapeutic Exercise Manual Therapy Therapeutic Activities Neuromuscular Re-Ed Manual Therapy Ultrasound Therapeutic Activities Neuromuscular Re-Ed Therapeutic Activities Neuromuscular Re-Ed Manual Therapy Therapeutic Activities Neuromuscular Re-Ed Manual Therapy Progress Note Therapeutic Activities Neuromuscular Re-Ed Manual Therapy Therapeutic Activities Neuromuscular Re-Ed Manual Therapy Therapeutic Activities Neuromuscular Re-Ed Manual Therapy Therapeutic Activities Neuromuscular Re-Ed Therapeutic Exercise Manual Therapy Ultrasound Therapeutic Activities Neuromuscular Re-Ed Therapeutic Exercise Manual Therapy Ultrasound Therapeutic Activities Neuromuscular Re-Ed Therapeutic Exercise Manual Therapy Ultrasound Progress Note Therapeutic Activities Neuromuscular Re-Ed Therapeutic Exercise Manual Therapy Therapeutic Activities Neuromuscular Re-Ed Therapeutic Exercise Ultrasound Manual Therapy Therapeutic Activities Therapeutic Exercise Manual Therapy Ultrasound Therapeutic Activities Neuromuscular Re-Ed Therapeutic Exercise Manual Therapy Hot or Cold Pack Ultrasound Therapeutic Activities Neuromuscular Re-Ed Therapeutic Exercise Therapeutic Activities Neuromuscular Re-Ed Therapeutic Exercise Manual Therapy Hot or Cold Pack Ultrasound Progress Note Therapeutic Activities Neuromuscular Re-Ed Therapeutic Exercise Manual Therapy Hot or Cold Pack Ultrasound Therapeutic Activities Neuromuscular Re-Ed Therapeutic Exercise Manual Therapy Hot or Cold Pack Ultrasound Therapeutic Activities Neuromuscular Re-Ed Therapeutic Exercise Manual Therapy Hot or Cold Pack Ultrasound PT Evaluation Low Complexity Therapeutic Activities Therapeutic Exercise Manual Therapy Hot or Cold Pack Ultrasound Therapeutic Activities Neuromuscular Re-Ed Therapeutic Exercise Manual Therapy Therapeutic Activities Neuromuscular Re-Ed Therapeutic Exercise Manual Therapy Therapeutic Activities Neuromuscular Re-Ed Therapeutic Exercise Manual Therapy Therapeutic Activities Neuromuscular Re-Ed Manual Therapy Therapeutic Exercise Therapeutic Activities Neuromuscular Re-Ed Therapeutic Exercise Manual Therapy Dry Needling 1-2 muscles Progress Note Therapeutic Activities Neuromuscular Re-Ed Therapeutic Exercise Manual Therapy Dry Needling 1-2 muscles Therapeutic Activities Neuromuscular Re-Ed Therapeutic Exercise Manual Therapy Therapeutic Activities Neuromuscular Re-Ed Therapeutic Exercise Manual Therapy Therapeutic Activities Neuromuscular Re-Ed Therapeutic Exercise Manual Therapy Therapeutic Activities Neuromuscular Re-Ed Therapeutic Exercise Manual Therapy Therapeutic Activities Neuromuscular Re-Ed Therapeutic Exercise Manual Therapy PT Evaluation Low Complexity Therapeutic Activities Neuromuscular Re-Ed Therapeutic Exercise Manual Therapy Advance Directives Directive Yes / No Effective Date File Name No Information Encounters Encounter Description Practice Location Reason(s) For Visit Diagnoses Date Provider Providers Copied on Encounter [facility], [address], [id number], [place] tel:[phone] [place] No Information 1- 4 Hisky Ronald. . Referring Provider: Joaquim Chaves, [address] [place] [address], [address]. tel:[phone] [facility] [address], [id number], [place] tel:[phone] Jose Angel No Information Jeet-0 7- 4 Hisky Ronald. . Referring Provider: Joaquim Chaves, [address] [place] [address], [address]. tel:[phone] [facility] [address], [id number], [place] tel:[phone] [place] No Information August-2 4- 4 Garrels Coleen. . Referring Provider: [place], [address]. tel:[phone] [facility] [address], [id number], [place] tel:[phone] [place] No Information 3- 4 Garrels Coleen. . Referring Provider: Joaquim Chaves, [place], [address]. tel:[phone] [facility] [address], [id number], [place] tel:[phone] [place] No Information August- 0-202 4 Hisky Ronald. . Referring Provider: [place], [address]. tel:[phone] [facility] [address], [id number], [place] tel:[phone] Jose Angel No Information Jul-2 4 Hisky Ronald. . Referring Provider: [place], [address]. tel:[phone], [id number], [place] tel:[phone] Jose Angel No Information Apr-2 6-202 4 Natalio Ronald. . Referring Provider: Joaquim Chaves, [address] [place] [address], [facility]. tel:[phone], [id number], [place] tel:[phone] Jose Angel No Information Apr-0 9-202 4 Mercedez Horne. . Referring Provider: Joaquim Chaves, [address] [place] [address], [facility]. tel:[phone], [id number], tel:[phone] [place] No Information Apr-0 8-202 4 Aura Camarena. [address] [place] [address], [address], [facility], . tel:[phone] Referring Provider: Joaquim Chaves, [address] [place] [address], [facility]. tel:[phone], [id number], [place] tel:[phone] Jose Angel No Information Apr-0 5-202 4 Aura Camarena. [address] [place] [address], [address], [place], [facility], . tel:[phone] Referring Provider: Joaquim Chaves, [facility] [place], [address]. tel:[phone], [id number], tel:[phone] [place] No Information Apr-0 2-202 4 Aura Camarena. [address] [place] [address], [address], [place], [place], [facility], . tel:[phone] Referring Provider: Joaquim Chaves, [place], [address]. tel:[phone], [id number], [place] tel:[phone] Jose Angel No Information Mar-2 7-202 4 Hisky Ronald. . Referring Provider: Joaquim Chaves, [address] [place] [address], [address]. tel:[phone], [id number], [place] tel:[phone] [place] No Information Mar-2 5-202 4 Garrels Coleen. . Referring Provider: Joaquim Chaves, [address] [place] [address], [address]. tel:[phone], [id number], [place] tel:[phone] [place] No Information Mar-2 0-202 4 Hisky Ronald. . Referring Provider: Jo[place], [address]. tel:[phone], [id number], [place] tel:[phone] Jose Angel No Information Mar-1 8-202 4 Aura Camarena. [address] [place] [address], [address], [place], [address], . tel:[phone] Referring Provider: Joaquim Chaves [address] [place] [address], [address]. tel:[phone], [id number], [place] tel:[phone] [place] No Information Mar-1 4-202 4 Garrels Coleen. . Referring Provider: [place], [address]. tel:[phone], [id number], [place] tel:[phone] [place] No Information Mar-1 2- 4 Aura Camarena. [address] [place] [address], [address], [place], [place], [facility], . tel:[phone] Referring Provider: Joaquim Chaves, [address] [place] [address], [address]. tel:[phone], [id number], [place] tel:[phone] Jose Angel No Information Mar-0 - 4 Diego Borrero. . Referring Provider: Joaquim Chaves, [address] [place] [address], [facility]. tel:[phone], [id number], [place] tel:[phone] [place] No Information Mar-0 - 4 Aura Camarena. [address] [place] [address], [address], [place], [place], [facility], [place]. tel:[phone] Referring Provider: Joaquim Chaves [address] [place] [address], [address]. tel:[phone], [id number], [place] tel:[phone] Jose Angel No Information Mar-0 - 4 Aura Camarena. [address] [place] [address], [address], [place], [place], [facility], [place]. tel:[phone] Referring Provider: Joaquim Chaves [facility] [place], [address]. tel:[phone], [id number], [place] tel:[phone] Jose Angel No Information Feb-2 4 Diego Borrero. . Referring Provider: Joaquim Chaves, [place], [address]. tel:[phone] [facility] [address], [place], [place], [id number], tel:[phone] [place] No Information - 3 Dellamano Lance. . Referring Provider: [facility]. [facility] [address], [place], [place], [id number], tel:[phone] [place] No Information - 3 Dellamano Lance. . Referring Provider: [facility]. [facility] [address] [address], [place], [place], [id number], tel:[phone] [place] No Information 3 Dellamano Lance. . Referring Provider: [facility]. [facility] [address] [address], [place], [place], [id number], tel:[phone] [place] No Information - 3 Dellamano Lance. . Referring Provider: [facility]. [facility] [address], [place], [place], [id number], tel:[phone] [place] No Information 0 - 3 Dellamano Lance. . Referring Provider: [facility]. [facility] [address], [place], [place], [id number], tel:[phone] [place] No Information 0 - 3 Dellamano Lance. . Referring Provider: [facility]. [facility] [facility] [address], [place], [place], [id number], [place] tel:[phone] [place] No Information 0 2- 3 Dellamano Lance. . Referring Provider: [facility]. [facility] [facility] [address], [place], [place], [id number], tel:[phone] [place] No Information - 3 Dellamano Lance. . Referring Provider: [facility]. [facility] [address] [facility] [address], [place], [place], [id number], tel:[phone] [place] No Information 3 Arley Lucas. . Referring Provider: [facility]. [facility] [facility] [address], [place], [place], [id number], tel:[phone] [place] No Information 3 Arley Lucas. . Referring Provider: [facility]. [facility] [address] [address], [place], [place], [id number], tel:[phone] [place] No Information 3 Arley Lucas. . Referring Provider: [facility]. [facility] [address] [address], [place], [place], [id number], tel:[phone] [place] No Information 3 Arley Lucas. . Referring Provider: [facility]. Family History Family Member Type Diagnosis Age At Onset No Information Payers Payer name Insurance type Covered republican ID Authorsybila maite(s) [facility] [id number] Social History Type Description Quantity Date Captured Comments Sex Female Smoking Status No Information Chief Complaint And Reason For Visit No Information Reason For Referral Reason For Referral No Information Plan Of Treatment Date Type Action Status Referral Ordered: Weight management: Referral to physician timeframe: 1 Month. (related to Overweight) ordered Referral Ordered: PCP timeframe: 1 week. (related to Overweight) ordered History Of Present Illness Encounter Date Complaint History Of Prese nt Illness No Information Functional Status Date Functional Assessmen t No Information Instructions Date Instruction Additional Infor mation No Information Assessments Type Assessment Date No Information Patient Care Teams Name Effective Dates (start - stop) Status Members No Information
--- OUTSIDE RECORDS SUMMARY | 2024-11-02 01:02 | XMS_ITS | Clinical Summary ---
Author Organization [facility] Address [address] [place] [address] Phone Care Team Providers Care Milker Machine Name Role Phone Unavailable Primary Care Provider [...] Encounters Date Type Department Care Team Description 10/31/2024 External Device Data [facility] ABSTRACTION Provider, Abstract 10/10/2024 External Device Data [facility] ABSTRACTION Provider, [...] drink = 0.6 oz pur e alcohol) Comments Unknown Sex and Gender Information Value [...] HPV VACCINES Completed 03/13/2008, 10/18, 09/13/2007 Insurance [facility] BOB REY [address] BLUE ACCESS CHOICE Advance Directives For more information, please contact: [phone] * Full Code (Latest Code Status on File) Date Activated Date Inactivated Comments 01/21/2024 12:36 PM 01/21/2024 3:40 PM
--- OUTSIDE RECORDS SUMMARY | 2024-11-02 01:03 | XMS_ITS | Data Portability ---
Author Organization [facility] Address [address] [place] [address] Care Team Providers Care Business Strategy Manager Name Role Phone PAULA [facility] Or Medical Assessment Encounter Date Assessment Date Assessment LastModified by Organization Details LastModified Time 06/23/2019 06/23/2019 MEGAN Solis ([facility]) Not available 06/24/2019 17:04:59 11/03/2019 11/03/2019 MEGAN Lopez, [facility] Not available 11/03/2019 18:54:34 Plan of Treatment Reminders Order Date Submit Date Provider Last Modified By Organization Details Last Modified Time Details Appointments None recorded . Lab pap, IG + reflex HPV 2021 022 JANAY [facility], 2022 Lucas Shrestha, [address], [address], 3 14:10:37 pregnanc y test, urine 2021 022 In-Office Order, Internal Use Only DO Not Attach Compendium DO Not Attach Compendium, Do Not Delete/merge, [id number] 2 16:27:07 urinalys is, dipstick 2019 020 [email or web address] In-Office Order, Internal Use Only DO Not Attach Compendium DO Not Attach Compendium, Do Not Delete/merge, [id number] 0 11:03:24 pregnanc y test, urine 2019 020 [email or web address] In-Office Order, Internal Use Only DO Not Attach Compendium DO Not Attach Compendium, Do Not Delete/merge, [facility] 0 11:03:24 urinalys is, dipstick 2019 020 In-Office Order, Internal Use Only DO Not Attach Compendium DO Not Attach Compendium, Do Not Delete/merge, [id number] 0 16:38:21 pregnanc y test, urine 2019 020 In-Office Order, Internal Use Only DO Not Attach Compendium DO Not Attach Compendium, Do Not Delete/merge, [facility] 0 16:38:22 pregnanc y test, urine 2019 020 [email or web address] In-Office Order, Internal Use Only DO Not Attach Compendium DO Not Attach Compendium, Do Not Delete/merge, [facility] 0 15:55:03 urinalys is, dipstick 2019 020 [email or web address] In-Office Order, Internal Use Only DO Not Attach Compendium DO Not Attach Compendium, Do Not Delete/merge, [id number] 0 15:55:03 CT + NG + TV, DNA, urine/sw ab 2019 020 [place] [facility], 2022 Lucas Shrestha, [address], [address], 0 20:07:41 Referral bariatri c surgery referral 2019 020 Precious Hamilton MD, [address] [place], [address], 0 13:18:32 reproduc tiblayne endocrin ologist referral 2019 020 JANAY Dukes, [address], [place], [address], 1 17:39:27 Procedures None recorded . Surgeries None recorded . Imaging US, breast, bilatera l 2019 020 [facility], [address], [place], [address], 0 16:32:43 Medication Orders medroxyp rogester one 10 mg tablet 2021 022 [id number], [address], [place], [address], 2 16:27:09 spironol actone 100 mg tablet 2019 020 [facility], [address] [place] [address], [address], 2 16:01:59 glyburid e 1.25 mg tablet 2019 020 [facility], [address] [place] [address], [address], 2 16:00:51 multivit roman tablet 2019 020 [facility], [address] [place] [address], [address], 2 16:01:27 Calcium with Vitamin D 600 mg-10 mcg (400 unit) tablet 2019 020 [facility], [address] [place] [address], [address], 2 16:00:41 28 mg iron-800 mcg tablet 2019 020 [facility], [address] [place] [address], [address], 0 16:38:32 Patient TargetsNo targets recorded. Patient Instructions Encounter Date Encounter Id Patient Instructions Last Modified By Organization Details Last Modified Time 06/23/2019 [id number] A healthy lifestyle: care instructions Not available 06/26/2019 16:47:50 polycystic ovary syndrome: care instructions Not available 06/26/2019 16:38:51 learning about planning for future Not available 06/26/2019 16:38:35 09/27/2019 [id number] A healthy lifestyle: care instructions jessie Not available 09/27/2019 10:15:10 04/16/2022 [id number] Well Visit, Ages 18 to 65: Care Instructions Not available 04/16/2022 16:27:07 A healthy lifestyle: care instructions Not available 04/16/2022 16:27:10 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 for Referral 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 Referral for Polycystic ovary syndrome Primary infertlity with BMI 53.6 Referring Physician: Musa Irwin FINISH MILL OPERATOR, Encounter Date: 09/27/2019 Bariatric Surgery Referral f or Morbid obesity BMI 53.6 Referring Physician: Musa Irwin FINISH MILL OPERATOR, Encounter Date: 09/27/2019 Results Created Date Observation Date Name Description Value Unit Range Abnormal Flag Note LastModifiedBy Organization Detail LastModifiedTime 09/27/19 20 09/27/2019 pregn lore test, urine HCG negati ve Not Available In-Office Order Internal Use Only DO Not Attach Compendium DO Not Attach Compendium, Do Not Delete/merge, [id number] 09/27/2019 10:02:28 06/23/19 20 06/23/2019 pregn lore test, urine HCG negati ve Not Available In-Office Order Internal Use Only DO Not Attach Compendium DO Not Attach Compendium, Do Not Delete/merge, [id number] 06/23/2019 11:22:19 06/23/1906/23/2019 urina lysis , dipst ick Leukocytes Negati ve Not Available In-Office Order Internal Use Only DO Not Attach Compendium DO Not Attach Compendium, Do Not Delete/merge, [id number] 06/23/2019 11:21:51 06/23/19 20 06/23/2019 urina lysis , dipst ick Nitrite negati ve Not Available In-Office Order Internal Use Only DO Not Attach Compendium DO Not Attach Compendium, Do Not Delete/merge, [id number] 06/23/2019 11:21:51 06/23/19 20 06/23/2019 urina lysis , dipst ick Urobilinogen .2 Not Available In-Of fice Order Internal Use Only DO Not Attach Compendium DO Not Attach Compendium, Do Not Delete/merge, [id number] 06/23/2019 11:21:51 06/23/19 20 06/23/2019 urina lysis , dipst ick Protein Negati ve Not Available In-Office Order Internal Use Only DO Not Attach Compendium DO Not Attach Compendium, Do Not Delete/merge, [facility] 06/23/2019 11:21:51 06/23/19 20 06/23/2019 urina lysis , dipst ick pH 5.5 Not Available In-Office Order Internal Use Only DO Not Attach Compendium DO Not Attach Compendium, Do Not Delete/merge, [id number] 06/23/2019 11:21:51 06/23/19 20 06/23/2019 urina lysis , dipst ick Blood Modera te Not Available In-Office Order Internal Use Only DO Not Attach Compendium DO Not Attach Compendium, Do Not Delete/merge, [id number] 06/23/2019 11:21:51 06/23/19 20 06/23/2019 urina lysis , dipst ick Specific Ava 1.025 Not Available In-Off ice Order Internal Use Only DO Not Attach Compendium DO Not Attach Compendium, Do Not Delete/merge, [id number] 06/23/2019 11:21:51 06/23/19 20 06/23/2019 urina lysis , dipst ick Ketone Negati ve Not Available In-Office Order Internal Use Only DO Not Attach Compendium DO Not Attach Compendium, Do Not Delete/merge, [id number] 06/23/2019 11:21:51 06/23/19 20 06/23/2019 urina lysis , dipst ick Bilirubin Negati ve Not Available In-Office Order Internal Use Only DO Not Attach Compendium DO Not Attach Compendium, Do Not Delete/merge, [id number] 06/23/2019 11:21:51 06/23/19 20 06/23/2019 urina lysis [...] 05/30/2019 urina lysis , dipst ick Specific Ava 1.030 Not Available In-Off ice Order Internal Use Only DO Not Attach Compendium DO Not Attach Compendium, Do Not Delete/merge, 05/30/2019 15:43:16 05/30/19 20 05/30/2019 urina lysis , dipst ick Ketone Negati ve Not Available In-Office Order Internal Use Only DO Not Attach Compendium DO Not Attach Compendium, Do Not Delete/merge, [id number] 05/30/2019 15:43:16 05/30/19 20 05/30/2019 urina lysis , dipst ick Bilirubin Negati ve Not Available In-Office Order Internal Use Only DO Not Attach Compendium DO Not Attach Compendium, Do Not Delete/merge, [id number] 05/30/2019 15:43:16 05/30/19 20 05/30/2019 urina lysis , dipst ick Glucose Negati ve Not Available In-Office Order Internal Use Only DO Not Attach Compendium DO Not Attach Compendium, Do Not Delete/merge, 05/30/2019 15:43:16 05/30/19 20 05/30/2019 pregn lore test, urine HCG negati ve Not Available In-Office Order Internal Use Only DO Not Attach Compendium DO Not Attach Compendium, Do Not Delete/merge, [id number] 05/30/2019 15:43:02 05/30/19 20 06/01/2019 CT + NG + TV, DNA, urine /swab chlamydia by NOMI NEGATI VE negati ve Not Available [facility] ([facility]) [address] [place] [address], [address], 06/01/2019 20:07:41 05/30/19 20 06/01/2019 CT + NG + TV, DNA, urine /swab gonococcus by NOMI NEGATI VE negati ve Not Available [facility] ([facility]) [address] [place], [address], 06/01/2019 20:07:41 05/30/19 20 06/01/2019 CT + NG + TV, DNA, urine /swab trich vag by NOMI NEGATI VE negati ve Not Available [facility] ([facility]) [address] [place], [address], 06/01/2019 20:07:41 09/27/19 20 09/27/2019 urina lysis , dipst ick Leukocytes Negati ve Not Available In-Office Order Internal Use Only DO Not Attach Compendium DO Not Attach Compendium, Do Not Delete/merge, [facility] 09/27/2019 10:01:36 09/27/19 20 09/27/2019 urina lysis , dipst ick Nitrite negati ve Not Available In-Office Order Internal Use Only DO Not Attach Compendium DO Not Attach Compendium, Do Not Delete/merge, [facility] 09/27/2019 10:01:36 09/27/19 20 09/27/2019 urina lysis , dipst ick Urobilinogen .2 Not Available In-Of fice Order Internal Use Only DO Not Attach Compendium DO Not Attach Compendium, Do Not Delete/merge, [facility] 09/27/2019 10:01:36 09/27/19 20 09/27/2019 urina lysis , dipst ick Protein Negati ve Not Available In-Office Order Internal Use Only DO Not Attach Compendium DO Not Attach Compendium, Do Not Delete/merge, [facility] 09/27/2019 10:01:36 09/27/19 20 09/27/2019 urina lysis , dipst ick pH 5.5 Not Available In-Office Order Internal Use Only DO Not Attach Compendium DO Not Attach Compendium, Do Not Delete/merge, [facility] 09/27/2019 10:01:36 09/27/19 20 09/27/2019 urina lysis , dipst ick Blood Small Not Available In-Office Order Internal Use Only DO Not Attach Compendium DO Not Attach Compendium, Do Not Delete/merge, [facility] 09/27/2019 10:01:36 09/27/19 20 09/27/2019 urina lysis , dipst ick Specific Ava 1.030 Not Available In-Off ice Order Internal Use Only DO Not Attach Compendium DO Not Attach Compendium, Do Not Delete/merge, [facility] 09/27/2019 10:01:36 09/27/19 20 09/27/2019 urina lysis , dipst ick Ketone Negati ve Not Available In-Office Order Internal Use Only DO Not Attach Compendium DO Not Attach Compendium, Do Not Delete/merge, [facility] 09/27/2019 10:01:36 09/27/19 20 09/27/2019 urina lysis , dipst ick Bilirubin Negati ve Not Available In-Office Order Internal Use Only DO Not Attach Compendium DO Not Attach Compendium, Do Not Delete/merge, [id number] 09/27/2019 10:01:36 09/27/19 20 09/27/2019 urina lysis , dipst ick Glucose Negati ve Not Available In-Office Order Internal Use Only DO Not Attach Compendium DO Not Attach Compendium, Do Not Delete/merge, [id number] 09/27/2019 10:01:36 04/16/20 22 04/16/2022 IGP,A PTIMA HPV,A GE GDLN age gdln acog testing 30-65 Not Available [facility] ([facility]) [address] [facility], [place], [address], 04/23/2022 14:10:37 04/16/20 22 04/17/2022 IGP, APTIM A HPV, RFX 16/18 ,45 HPV aptima Negati ve negati ve This nucle ic acid ampli ficat ion test detec ts fourt een high- risk HPV types (16,1 8,31, 33,35 ,39,4 5,51, 52,56 ,58,5 9,66, 68) witho ut diffe renti ation . Not Available [facility] ([facility]) [address] [facility], [place], [address], 04/23/2022 14:10:38 04/16/20 22 04/23/2022 IGP, APTIM A HPV, RFX 16/18 ,45 diagnosis: Commen t NEGAT RASHEL FOR INTRA EPITH ELIAL LESIO N OR KELLY ORTEGA . Not Available [facility] ([facility]) [address] [facility], [place], [address], 04/23/2022 14:10:38 04/16/20 22 04/23/2022 IGP, APTIM A HPV, RFX 16/18 ,45 specimen adequacy: Commen t Satis facto ry for evalu ation . Endoc ervic al and/o r squam ous metap lasti c cells (endo cervi isabelle compo nent) are prese nt. Not Available [facility] ([facility]) [address] [facility], [place], [address], 04/23/2022 14:10:38 04/16/20 22 04/23/2022 IGP, APTIM A HPV, RFX 16/18 ,45 clinician provided ICD10: Juan A fonseca Z01.4 19 Not Available [facility] ([facility]) [address] [place], [address], 04/23/2022 14:10:38 04/16/20 22 04/23/2022 IGP, APTIM A HPV, RFX 16/18 ,45 performed by: Josselyn Freeman (ASCP ) Not Available [facility] ([facility]) [address] [place], [address], 04/23/2022 14:10:38 04/16/20 22 04/23/2022 IGP, APTIM A HPV, RFX 16/18 ,45 . . Not Available [facility] ([facility]) [address] [place], [address], 04/23/2022 14:10:38 04/16/20 22 04/23/2022 IGP, APTIM [...] ts do occur . Not Available [facility] ([facility]) [address] [place], [address], 04/23/2022 14:10:38 04/16/20 22 04/23/2022 IGP, APTIM A HPV, RFX 16/18 ,45 test methodology: Commen t This liqui d based ThinP rep(R ) pap test was jenny péerz with the use of an image guide nirav potts Not Available [facility] ([facility]) [address] [facility], [place], [address], 04/23/2022 14:10:38 04/16/20 22 04/23/2022 IGP, APTIM A HPV, RFX 16/18 ,45 HPV genotype reflex Commen t Crite veda not met, HPV Genot ype not perfo rmed. Not Available [facility] ([facility]) [address] [facility], [place], [address], 04/23/2022 14:10:38 04/16/20 22 04/16/2022 pregn lore test, urine HCG negati ve Not Available In-Office Order Internal Use Only DO Not Attach Compendium DO Not Attach Compendium, Do Not Delete/merge, [id number] 04/16/2022 16:08:46 11/27/19 20 11/27/2019 US, freddie vasquez No observ ation record ed. [address] ([facility]) [address], [place], [address], 04/16/2022 16:27:24 Result Notes None recorded. 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 2018 Musa phillips, [place] - [facility] 9 10:23:31 Polycysti c ovary syndrome 795446368 Active 2019 Musa [place], [place] [facility] 0 10:07:00 Anxiety 13282709 Active Musa Irwin null, [place] - [facility] 6 12:07:25 Polycysti c ovaries Completed 09/27/2019 Mus[place] [facility] 0 10:07:05 Vaginitis 02377274 Active Musa [place]ips, [place] - [facility] 6 12:07:25 Vulvitis 40226475 Active Musa phillips, [facility] 6 12:07:25 Gastroeso phageal reflux disease 374887424 Active Musa phillips, [facility] 6 12:07:25 Bacterial vaginosis 851711386 Active Musa phillips, [facility] 6 12:07:25 Candidias is of vagina 26311999 Active Musa phillips, [facility] 6 12:07:25 Candidal vulvovagi nitis 60904923 Active Musa phillips, [facility] 6 12:07:25 Obesity 622851911 Completed 201609/27/2019 Musa phillips, [facility] 0 10:13:03 Problem Notes None recorded. Procedures Surgical History Date Name Laterality Status Provider Name and Address Organization Details Recorded Time 04/16/20 22 Date of Last Pap Smear completed Rose Marie Hawk [place] - [facility] 04/16/2022 15:45:07 06/23/19 20 Control Implant Removal completed BECKA PEREZ Attn: Accounting[address] [place], [address], [facility] - [facility] 06/24/2019 16:55:45 03/29/20 19 Control Implant Insertion completed Shi Miels MA [place] - [facility] 03/29/2019 17:26:20 12/31/19 19 IUD Removal completed BECKA PEREZ Attn: Accounting[address] [place], [address], [facility] - [facility] 12/30/2018 14:04:47 07/26/19 19 IUD Insertion completed Rose Marie Hawk MA [place] - [facility] 07/25/2018 16:56:53 04/19/19 14 Orthopedic Surgery completed ARLETTE Harper - [facility] 06/20/2014 11:36:23 04/19/19 14 Tonsillectomy completed Alaina Briseno MA [facility] 06/20/2014 11:36:23 Imaging Results None recorded. Procedure Notes None recorded. Medical Equipment None Reported. Allergies Allergen ID Allergen Name Allergen Category Reaction Reaction Severity Criticality Documentation Date Start Date Code Code System Note Provider Name and Address Organization Details Recorded Time 37974 Milk (substanc e) food,medi cation nausea mild Not available 06/20/2014 67194 002 SNOMED Alaina ARLETTE Briseno jacqueline, [facility] 5 11:36:24 24856 Zoloft medicatio n facial swelling Not available Not available 06/20/2014 82588 RxNorm Musa phillips, [facility] 9 17:03:48 Medications Name Sig Start Date [...] by oral route. 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 Not Available Not Available Not Available Kyleena [...] Updated DateTime 05/30/2019 165.1 cm 52.8 kg/m2 841194.78 g 112/86 mm[Hg] Rose Marie Hawk MA [facility] 05/30/2019 15:32:19 Date Recorded Body height Body mass index (BMI) Body weight Systolic And Diastolic Provider Name and Address Organization Details Last Updated DateTime 06/23/2019 165.1 cm 53.1 kg/m2 607840.97 g 104/68 mm[Hg] Rose Marie Hawk MA [facility] 06/23/2019 11:21:01 Date Recorded Body height Body mass index (BMI) Body weight Systolic And Diastolic Provider Name and Address Organization Details Last Updated DateTime 09/27/2019 165.1 cm 53.6 kg/m2 080787.74 g 110/70 mm[Hg] Kaley Butler MA [facility] 09/27/2019 09:55:53 Date Recorded Body height Body mass index (BMI) Body weight Heart rate Oxygen saturation Oxygen saturation in Arterial blood by Pulse oximetry Body temperature Systolic And Diastolic Provider Name and Address Organization Details Last Updated DateTime 0 165.1 cm 52.8 kg/m2 760777. 78 g 112 /min 99 % 99 % 98.3 [degF] 122/82 mm[Hg] Kaley Butler MA [facility] 0 13:10:15 Date Recorded Body height Body mass index (BMI) Body weight Systolic And Diastolic Provider Name and Address Organization Details Last Updated DateTime 04/16/2022 165.1 cm 52.1 kg/m2 005627.41 g 116/80 mm[Hg] Rose Marie Hawk MA [facility] 04/16/2022 16:07:29 Social History Question Answer Notes LastModified by Organizat ion Details LastModified Time Tobacco Smoking Status Never Smoker lAaina Briseno MA null, [facility] 06/20/2014 11:36:24 Do You Have An Advance [...] How Much Tobacco Do You Smoke? No [email or web address] Information not available 01/16/2016 General Stress Level [...] Depression N Blood Clots N Acne N Breast Problem N Eating Disorder N Anemia N Anesthesia Complications N Headaches/Migraines [...] quadrivalent, preservative 6 completed Not Available [facility] 05/06/2019 02:32:32 Influenza, split virus, quadrivalent, preservative 8 completed Not Available [facility] 05/06/2019 02:36:57 Influenza, split virus, quadrivalent, preservative 2 completed BECKA PEREZ Attn: Accounting[address] [place], [address], [facility] - [facility] 05/05/2022 13:36:05 HPV, quadrivalent 5 completed Not Available [facility] 05/06/2019 02:30:42 Hep A-Hep B 5 completed Not Available [facility] 05/06/2019 02:30:51 Past Encounters Encounter ID Performer Location Encounter Start Date Encounter Closed Date Diagnosis/Indication Diagnosis SNOMED-CT Code Diagnosis ICD10 Code Diagnosis Note [id number] MD Alisha Barrera (FINISH MILL OPERATOR) [address] [place] [phone] 06/20/2014 10:31:35 06/20/2014 12:11:13 Gynecologic examination 89322908 Polycystic ovaries 33529850 [id number] [facility]ILL OPER[facility] [address] [place] [id number] 02/26/2015 10:37:08 02/26/2015 13:10:30 Gynecologic examination 33321895 Z01.419 Vaginitis 15029609 N76.0 Vulvitis 62082976 N76.2 Polycystic ovaries 53516 008 E28.2 Active or passive immunization 861030355 Z23 Gastroesop hageal reflux disease 296941955 K21.9 [id number] [facility]FINISH MILL OPERATOR[facility] [address] [place] [phone] 07/31/2015 10:27:24 07/31/2015 15:03:29 Polycystic ovaries 63428544 E28.2 Venereal d isease screening 825820063 Z11.3 Candidal vulvovaginitis 81268753 B37.3 [id number] MD Alisha Barrera (FINISH MILL OPERATOR) [address] [place] [id number] 01/16/2016 11:24:13 01/16/2016 15:33:16 Polycystic ovaries 59551789 E28.2 cervical stenosis Active or passive immunization 484277424 Z23 [id number] Musa Irwin MD [place] (FINISH MILL OPERATOR) [address] [place] [address] 0 08/12/2016 11:01:25 08/13/2016 15:14:05 Polycystic ovaries 58132176 E28.2 Family jennifer nning surveillance 695190021 Z30.09 Obesity 639416731 E66.9 [id number] MD Alisha Barrera (FINISH MILL OPERATOR) [address] [place] [address] 0 03/22/2018 10:17:29 03/22/2018 11:54:20 Polycystic ovaries 13989715 E28.2 Family jennifer nning surveillance 995042119 Z30.09 Primary infertility 2971 04979 N97.0 Gynecologi c examination 31107678 Z01.419 Z11.51 Exposure t o sexually transmissible disorder 414621531 Z20.2 Administra tion of influenza vaccine 34652984 Z23 [id number] MD Alisha Barrera (FINISH MILL OPERATOR) [address] [place] [address] 0 05/26/2018 15:11:55 05/27/2018 15:21:29 Family planning surveillance 242900722 Z30.09 Obesity 126031618 Z68.43 Polycystic ovaries 31027 008 E28.2 [id number] MD Alisha Barrera (FINISH MILL OPERATOR) [address] [place] [address] 0 07/25/2018 16:00:40 07/26/2018 11:47:21 Insertion of intrauterine contraceptive device 34005111 Z30.430 Polycystic ovaries 77129 008 E28.2 Obesity 344330729 Z68.43 Family jennifer nning surveillance 479989510 Z30.09 Exposure t o sexually transmissible disorder 158595387 Z20.2 Anxiety 53651865 F41.9 [id number] MD Alisha Barrera (FINISH MILL OPERATOR) [address] [place] [address] 0 09/26/2018 16:00:00 09/28/2018 13:03:16 Family planning surveillance 840574456 Z30.09 Generalize d anxiety disorder 58865421 F41.[address] Brendan Mesa [id number] MD Alisha Barrera (FINISH MILL OPERATOR) [address] [place] [id number] 11/15/2018 14:21:14 11/17/2018 12:55:01 Surveillance of intrauterine device contraception done 4721899141 06052 Z30.40 At increas ed risk of sexually transmitted infection 886232788 Z20.2 Family jennifer nning surveillance 001600304 Z30.09 [id number] BECKA PEREZ (FINISH MILL OPERATOR) [address] [place] [id number] 0 12/30/2018 11:33:11 01/02/2019 11:57:38 Family planning surveillance 326628442 Z30.09 Discussed different BC options with pt. She would like to try Nexplanon. Pt to return to clinic next week for insertion. Removal of intrauterine device 40509764 Z30.993 [id number] MD Alisha Barrera (FINISH MILL OPERATOR) [address] [place] [id number] 03/29/2019 16:42:40 03/30/2019 10:25:17 Implantation of subcutaneous contraceptive 087063567 Z30.9 At increas ed risk of sexually transmitted infection 052820080 Z20.2 Upper resp iratory infection 09456782 J06.9 Family jennifer nning surveillance 727486951 Z30.09 [id number] [facility]FINISH MILL OPERATOR) [address] [place] [id number] 05/30/2019 14:46:02 05/31/2019 10:05:42 Subcutaneous contraceptive implant palpable 596120581 Z30.46 At increas ed risk of sexually transmitted infection 752634012 Z20.2 Family jennifer nning surveillance 357691386 Z30.09 [id number] BECKA PEREZ (FINISH MILL OPERATOR) [address] [place] [id number] 06/23/2019 10:40:57 06/23/2019 13:02:27 Removal of subcutaneous contraceptive 224811795 Z30.46 Advised return to fertility within 1-2 weeks. Polycystic ovary syndrome 334235931 E28.2 Reproducti ve care management 648533359 Z31.9 She is a patient of Dr. [...] Body mass index 40+ - severely obese [id number] Z68.43 [id number] MD Alisha Barrera (FINISH MILL OPERATOR) [address] [place] [address] [phone] 09/27/2019 09:34:41 09/28/2019 08:08:37 Family planning surveillance [id number] Z30.09 Polycystic ovary syndrome [id number] E28.2 failed medical management Morbid obesity 404252206 E66.01 BMI 53.6 Polycystic ovaries 76981 [id number] E28.2 [id number] BECKA PEREZ (FINISH MILL OPERATOR) [address] [place] [address] [phone] 11/03/2019 12:40:23 11/06/2019 10:33:31 Mastodynia of bilateral breasts [id number] N64.4 Right nipple with abnormal tenderness , otherwise unremarkab le exam. Reassured patient that some tenderness is normal with hormonal changes. Advised supportive bra (without underwire) , OTC ibu as needed, warm compresses , low fat diet. Pt requests imaging, f/u US. [id number] BECKA PEREZ (FINISH MILL OPERATOR) [address] [place] [address] [phone] 04/16/2022 15:32:19 04/21/2022 16:08:52 Gynecologic examination [id number] Z01.419 Cervical cancer screening: Last Pap 03/22/2018 NILM, updated todayBreas t cancer screening: Reviewed recommenda tions for initiation at age 40 with annual screening. Discussed SBESTI screening: declinedCo ntraceptio n: not practicedD iet/exerci se: Counseled regarding importance of physical activity, healthy diet and appropriat e calcium intake. Polycystic ovary syndrome [id number] E28.2 Following with fertility specialist . Has been amenorrhei c since June 2021. Long discussion on PCOS and increased risk for endometria l cancer with prolonged amenorrhea . Will send Provera for patient to induce bleeding for endometria l protection . She does not wish to be on control at this time due to TTC. Morbid obesity 950419554 E66.01 BMI 52.1. Pt has questions about [...] nsaturated fats. Administra tion of influenza vaccine 71205676 Z23 Annual flu shot requested. Health Concerns Section Related Observation LastModified by Organization Detai ls LastModified Time None Recorded Concern Status LastModified by Organization Details LastModified Time None Recorded Advance Directives Directive N: Payers Insurance Date Sequence Insurance Name Policy Number Policy Mahan Covered Member ID Mahan Member ID Guarantor Name 05/07/2022 3 [place] [employer] Haven Tonya [id number] Haven Castaneda 05/07/2022 2 [facility] (MEDICAID HMO) [id number] Haven Joe [id number] Haven Tonya 05/07/2022 1 [facility] (PPO) [id number] Beni Castaneda [id number] Haven Tonya Notes Date Note Type [...] brown discharge x 1 month. Musa phillips, [facility] 05/30/2019 16:58:41 0 text/html Abnormal BleedingReported bypatient.Onset/Timing:p [...] to conceive. BECKA PEREZ Attn: Accounting,[address] [place], [address], [facility] 06/26/2019 16:54:22 0 text/html InfertilityReported bypatient.Duration:tryin g [...] Nexplanon removed wants to get Musa phillips, [facility] 09/27/2019 11:03:22 0 text/html Breast PainReported bypatient.Location:bilat [...] at Stage IV. BECKA PEREZ Attn: Accounting, [place], [address], [facility] 11/06/2019 09:31:54 2 text/html Annual GYNReported bypatient.History:no [...] June 2021. BECKA PEREZ Attn: Accounting, [address] [place], [address], [facility] 05/05/2022 13:43:59 OBGyn Episode No OBEpisode recorded.
--- OUTSIDE RECORDS SUMMARY | 2024-11-02 01:03 | XMS_ITS | Referral Summary ---
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
--- OUTSIDE RECORDS SUMMARY | 2024-11-02 01:03 | XMS_ITS | Clinical Summary ---
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 [address] [place] [address] [employer] Care Teams Film Painter Relationship Specialty Start Date End Date Fredy Ellington MD [facility] [place] [address] PCP - General 07/21/16
--- OUTSIDE RECORDS SUMMARY | 2024-11-02 01:03 | XMS_ITS | Data Portability ---
Author Organization [place] - [facility], Main Office Address [address] [place] [address] Care Team Providers Care Repair Service Clerk Name Role Phone LORENA MURRAY Primary Care Provider LORENA MURRAY Referring Provider Assessment Encounter Date Assessment Date Assessment LastModified by Organization Details LastModified Time 07/19/2023 07/19/2023 This note is dictated and transcribed by [employer]. Gasket Notcher variances may occur. Despite proofreading, typographical errors may occur. Occasional wrong-word or 'cldnd-m-fbqd' substitutions may have occurred due to the inherent limitations of voice recording. Read the chart carefully and recognize, using context, where substitutions have occurred. dinorah Not available 07/19/2023 10:52:07 08/23/2023 08/23/2023 This note is dictated and transcribed by [employer]. Gasket Notcher variances may occur. Despite proofreading, typographical errors may occur. Occasional wrong-word or 'visqv-o-rapt' substitutions may have occurred due to the inherent limitations of voice recording. Read the chart carefully and recognize, using context, where substitutions have occurred.And dinorah Not available 08/23/2023 16:58:32 10/25/2023 10/25/2023 This note is dictated and transcribed by [employer]. Gasket Notcher variances may occur. Despite proofreading, typographical errors may occur. Occasional wrong-word or 'wshrc-d-quho' substitutions may have occurred due to the inherent limitations of voice recording. Read the chart carefully and recognize, using context, where substitutions have occurred. dinorah Not available 10/25/2023 11:40:55 06/13/2024 06/13/2024 The patient has moderately severe primary osteoarthritis of the right knee joint with essentially vhya-jd-enpb changes in the medial compartment on the [...] weight loss this will help her knee retirement we also talked about keep the muscles strong she declined formal therapy we talked about low-impact exercise on her own at home. She will use ibuprofen xomo-gtq-jevxmnp if her pain starts to flare up [...] DO Not Attach Compendium, Do Not Delete/merge, [id number] 02/25/202 5 16:12:16 Surgeries None recorded. Imaging XR, knee 2024 025 [email or web address] [address] [facility] [place], [address], [place], [address], 5 16:53:22 MRI, foot, w/o contrast 2023 024 [email or web address] (Imaging), [address], [place], [address], 4 11:57:01 Medication Orders prednisone 10 mg tablets in a dose pack [id number], [address], [place], [address], 5 16:53:22 bupivacaine HCl 0.5 % (5 mg/mL) injection solution 2024 025 [email or web address] [address] [id number], [address], [place], [address], 5 16:53:22 Kenalog 10 mg/mL suspension for injection [address]/[facility] #[id number], [address], [place], [address], 5 16:53:22 diclofenac sodium 75 mg tablet,kvng yed release 2023 024 [email or web address] [id number], [address], [place], [address], 4 11:17:04 Patient TargetsNo targets recorded. Patient InstructionsNo instructions recorded. Reason for Referral None Reported. Results Created Date Observation Date Name Description Value Unit Range Abnormal Flag Note LastModifiedBy Organization Detail LastModifiedTime 07/29/19 24 07/29/2023 MRI, foot, w/o contr ast [facility] [address] [place] [address] Patien t Name: HAVEN WRIGHT Access ion #: [id number] Sex: F : 1990 2 Dictat [...] Anteri or talofi bular ligame nt and streetcar repairer ior talofi bular ligame nt are intact [...] 2023 21:36: 42 PM Page [email or web address] [facility] (Imaging) [address] [place], [address], 08/03/2023 15:47:55 07/29/19 24 07/29/2023 MRI, foot, w/o contr ast No observ ation record ed. [email or web address] [facility] (Imaging) [address] [place], [address], 08/03/2023 15:47:56 06/13/19 25 XR, knee No observ ation record ed. [email or web address] [facility] [place] [facility] [address], [place], [address], 06/13/2024 16:49:52 Result Notes Documentation Provider Name and Address Organization Details Recorded Time Mri, Foot, W/o Contrast : [facility] [address] [place] [address] Patient Name: HAVEN WRIGHT Sex: F : [...] HS:Y Page 1 Joaquim Frausto DPM [address] [facility], [place], [address], [facility] [employer] [facility] 08/03/2023 15:47:55 Problems Name Problem SNOMED Code Status Onset Date Resolution Date Notes Provider Name and Address Organization Details Recorded Time Attention deficit hyperactiv ity disorder, predominan tly inattentiv e type 24923098 Active 2022 Not Available [facility] 4 15:51:54 Obesity 037157341 Active 2022 Not Available [facility] 4 15:51:54 Elevated blood-pres sure reading without diagnosis of hypertensi on 109818782 Active 2022 Not Available [facility] 4 15:51:54 Insomnia 079997402 Active Not Available [facility] 4 15:51:53 Anxiety disorder 643224032 Active Not Available [facility] 4 15:51:53 Abdominal pain 70273071 Active Not Available [facility] 4 15:51:53 Gastroesop hageal reflux disease 469177681 Active Not Available [facility] 4 15:51:53 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 Active Not Available [facility] 4 15:51:53 Increased blood pressure 95830429 Active Not Available [facility] 4 15:51:53 Acute allergic reaction 220269743 Active Not Available [facility] 4 15:51:53 Acute vaginitis 89045052 Active Not Available [facility] 4 15:51:54 Urinary symptoms 538551913 Active Not Available [facility] 4 15:51:54 Headache 80099688 Active Not Available [facility] 4 15:51:54 Dysmenorrh ea 828394758 Active Not Available [facility] 4 15:51:54 Mosquito bite 491994246 Active Not Available [facility] 4 15:51:54 Level of anxiety 962860288 Active Not Available [facility] 4 15:51:54 Hypoglycem ia 444558736 Active Not Available [facility] 4 15:51:54 Knee pain Active Not Available [facility] 4 15:51:54 Osteoarthr itis of left knee joint 0193175594456 09 Active 2021 Not Available [facility] 4 15:51:54 Depressive disorder 71977834 Active Not Available [facility] 4 15:51:54 Sinusitis 44567690 Active Not Available [facility] 4 15:51:54 Osteoarthr itis 973060863 Active 2021 Not Available [facility] 4 15:51:54 Sleep disorder 32850608 Active Not Available [facility] 4 15:51:54 Multiple benign melanocyti c nevi 208538591 Active Not Available [facility] 4 15:51:54 Periodic limb movement disorder 560116703 Active Not Available [facility] 4 15:51:54 Temporoman dibular joint disorder 30175068 Active Not Available [facility] 4 15:51:54 Nausea 664448896 Active Not Available [facility] 4 15:51:54 Viral syndrome 665011831 Active Not Available [facility] 4 15:51:54 Pain of left knee joint 8012756048985 07 Active 2021 Not Available [facility] 4 15:51:54 Anxiety 67264619 Active Not Available [facility] 4 15:51:54 Hyperlipid emia 14833509 Active Not Available [facility] 4 15:51:54 Tachyarrhy thmia 2305436 Active Not Available [facility] 4 15:51:54 Costal chondritis 98493206 Active Not Available [facility] 4 15:51:54 Subconjunc tival hemorrhage 96569682 Active Not Available [facility] 4 15:51:54 Fatigue 52998888 Active Not Available [facility] 4 15:51:54 Pain in limb 10949187 Active Not Available [facility] 4 15:51:54 Morbid obesity 073800014 Active 2022 Not Available [facility] 4 15:51:53 Acute urinary tract infection 218325751 Active 2022 Not Available [facility] 4 15:51:54 Belching symptom 211504743 Active 2022 Not Available [facility] 4 15:51:54 Tachycardi a 3702761 Active 2022 Not Available [facility] 4 15:51:54 Plantar fasciitis of right foot 7953622611379 9101 Active 2022 Not Available [facility] 4 15:51:53 Pruritic rash 05514832 Active 2022 Not Available [facility] 4 15:51:54 Contusion of left knee 7657571223684 9109 Active 2022 Not Available [facility] 4 15:51:53 Pain in right heel 3133892757961 105 Active 2023 Not Available [facility] 4 15:51:53 Pain in right foot 7218688964552 07 Active 2023 Not Available [facility] 4 15:51:54 Calcaneal spur of right foot 3672385132578 00 Active 2023 Not Available [facility] 4 15:51:54 Pain of right knee joint 1209232397932 00 Active 2024 ESTEVAN Carvajal null, [facility] 5 15:51:59 Osteoarthr itis of right knee joint 3059657669528 00 Active 2024 BECKA Serna [address], [address], [place], [address] , [facility] 5 16:50:10 Problem Notes None recorded. Procedures Surgical History Date Name Laterality Status Provider Name and Address Organization Details Recorded Time 08/23/19 24 Plantar Fascia Injection Right Foot completed Joaquim Frausto DPM [address], [address], [place], [address], [facility] 08/23/2023 16:58:20 05/31/19 24 Plantar Fascia Injection Right Foot completed Joaquim Frausto DPM [address], [address], [place], [address], [employer] [facility] [employer] [facility] 06/07/2023 10:32:32 05/13/19 24 Plantar Fascia Injection Right Foot completed Joaquim Frausto DPM [address], [address], [place], [address], [employer] [facility] [employer] [facility] 05/13/2023 16:31:14 12/11/19 23 Cortisone Injection (Dequervains/ Greater Trochantric/ Lateral Epicondylitis/ Medial Epicondylitis / Shoulder/ Subacromial Space/ Knee/ Trigger Finger or Plantar Fascia) completed Fredy Ellington MD [address], [address], [place], [address], [employer] [facility] [employer] [facility] 12/10/2022 17:23:24 Knee completed ESTEVAN Carvajal [facility] [employer] [facility] 06/13/2024 15:50:09 Imaging Results None recorded. Procedure Notes None recorded. Medical Equipment None Reported. Allergies Allergen ID Allergen Name Allergen Category Reaction Reaction Severity Criticality Documentation Date Start Date Code Code System Note Provider Name and Address Organization Details Recorded Time 5356 Zoloft medicatio n Not available Not available Not available 06/17/2022 40458 RxNorm ananda rothman Not Available [facility] 3 03:10:20 Medications Name Sig Start Date [...] 2 mL by injection route. 2024 active [facility]: 0003- 0494- 20 Not Available [...] Updated DateTime 06/13/2024 167.64 cm 50 kg/m2 133758.63 g ESTEVAN Carvajal [facility] [employer] [facility] 06/13/2024 15:46:13 Date Recorded Body height Body mass index (BMI) Body weight Heart rate Respiratory rate Oxygen saturation Oxygen saturation in Arterial blood by Pulse oximetry Systolic And Diastolic Provider Name and Address Organization Details Last Updated DateTime 167.64 cm 44.5 kg/m2 086401. 49 g 101 /min 14 /min 99 % 99 % 123/87 mm[Hg] Юлия Myke [facility] [employer] [facility] 10:23:40 Date Recorded Body height Body mass index (BMI) Body weight Provider Name and Address Organization Details Last Updated DateTime 08/04/2024 165.1 cm 45.8 kg/m2 470640.9 g Kelley CarrerasJAYNE [facility] [employer] [facility] 08/04/2024 11:45:28 Date Recorded Body height Heart rate Systolic And Diastolic Provider Name and Address Organization Details Last Updated DateTime 10/25/2023 167.64 cm 111 /min 149/91 mm[Hg] Sloane Petersen [facility] [employer] [facility] 10/25/2023 11:20:19 Social History Question Answer Notes LastModified by [employer] Details LastModified Time Tobacco Smoking Status Never Smoker Diane phillips [facility] [employer] [facility] 05/31/2023 16:28:36 What Is Your Level Of Caffeine Consumption? Occasional Information not available 05/03/2023 What Was The Date Of Your Most Recent Tobacco Screening? 06/13/2024 [email or web address] Information not available 06/13/2024 Sex: Unknown Functional Status Question Answer Note LastModified by [employer] Details LastModified Time Do you use any illicit or recreational drugs? No [email or web address] Information not available 05/31/2023 What is your level of alcohol consumption? None [email or web address] Information not available 05/03/2023 Mental Status None recorded. Family History Relationship Description Onset Age of this Age Resolved Age Notes LastModified by Organization Details LastModified Time Mother Heart disease [email or web address] Not available 2022 15:00:13 Father Blood coagulation disorder [email or web address] Not available 2023 16:28:35 Medical History Condition Response DEPRESSION (INCLUDING POST ) Y OBESITY Y ANXIETY DISORDER Y Gynecological HistoryNo gynecological history recorded. Obstetrics History GPAL:G 0 P 0 0 0 0 Immunizations Vaccine Type Date Status Note Provider Nam e and Address Organization Details Recorded Time Hep B, adolescent or pediatric 8 completed Not Available [facility] 05/28/2023 15:51:55 Hep B, adolescent or pediatric 7 completed Not Available [facility] 05/28/2023 15:51:55 Hep B, adolescent or pediatric 7 completed Not Available [facility] 05/28/2023 15:51:55 IPV 5 completed [facility] Available [facility] 05/28/2023 15:51:55 DTaP 5 completed [facility] Available [facility] 15:51:56 MMR 4 completed Not Available [facility] 05/28/2023 15:51:55 IPV 3 completed Not Available [facility] 05/28/2023 15:51:55 DTaP 3 completed Not Available [facility] 05/28/2023 15:51:56 MMR 2 completed Not Available [facility] 05/28/2023 15:51:55 Hib (HbOC) 2 completed Not Available [facility] 05/28/2023 15:51:55 IPV 2 completed Not Available [facility] 05/28/2023 15:51:55 DTaP 2 completed Not Available [facility] 05/28/2023 15:51:56 IPV 2 completed Not Available [facility] 05/28/2023 15:51:55 Hib (HbOC) 2 completed Not Available [facility] 05/28/2023 15:51:55 DTaP 1 completed Not Available [facility] 05/28/2023 15:51:56 Hib (HbOC) 1 completed Not Available [facility] 05/28/2023 15:51:56 IPV 1 completed Not Available [facility] 05/28/2023 15:51:55 IPV 1 completed Not Available [facility] 05/28/2023 15:51:55 DTaP 1 completed Not Available [facility] 05/28/2023 15:51:56 Hib (HbOC) 1 completed Not Available [facility] 05/28/2023 15:51:56 HPV, quadrivalent 8 completed Not Available [facility] 05/28/2023 15:51:55 HPV, quadrivalent 8 completed Not Available [facility] 05/28/2023 15:51:55 HPV, quadrivalent 8 completed Not Available [facility] 05/28/2023 15:51:55 DTaP 6 completed Not Available [facility] 05/28/2023 15:51:56 Influenza, split virus, quadrivalent, PF 0 completed Not Available [facility] 05/28/2023 15:51:56 Influenza, split virus, quadrivalent, PF 3 completed BECKA Casillas [address] [place] [address] [address] [address], [place], [address], [facility] 04/17/2023 16:41:29 Past Encounters Encounter ID Performer Location Encounter Start Date Encounter Closed Date Diagnosis/Indication Diagnosis SNOMED-CT Code Diagnosis ICD10 Code Diagnosis Note [id number] Fredy Ellington MD [facility] [place] [address] [place] [address] 07/02/2020 00:00:00 07/02/2020 11:18:57 [id number] Fredy Ellington MD [facility] [place] [address] [place] [address] 08/06/2020 00:00:00 08/07/2020 06:39:49 [id number] Dawit Bishop MD [facility] [address] [place] [address] 09/02/2021 00:00:00 09/02/2021 10:04:02 [id number] Bishop MD [facility] [address] [facility] [place] [address] 10/14/2021 00:00:00 10/14/2021 11:03:53 [id number] Dawit Bishop MD [facility] [place] [address] [facility] [address] [place] [address] 10/21/2021 00:00:00 10/21/2021 14:02:43 [id number] Dawit Bishop MD [facility] [place] [address] [facility] [address] [place] [address] 10/28/2021 00:00:00 10/28/2021 14:02:51 [id number] Fredy Ellington MD [facility] [place] [address] [place] [address] [place] [address] 11/26/2021 00:00:00 11/26/2021 20:22:21 [id number] Fredy Ellington MD [facility] [place] [address] [place] [address] [place] [address] 05/04/2022 00:00:00 05/04/2022 19:13:56 [id number] Fredy Ellington MD [facility] [place] [address] [place] [address] [place] [address] 07/03/2022 11:23:02 07/03/2022 11:45:51 Obesity 063184876 E66.9 Increased wegovy to 0.5 mg weekly Elevated blood-pressure reading without diagnosis of hypertension 076109232 R03.0 BP 130/100 Watch salt in diet. Monitor BP away from here. F/u in 1 month. [id number] Fredy Ellington MD [facility] [place] [address] [place] [address] [place] [address] 08/04/2022 16:44:00 08/04/2022 17:12:20 Morbid obesity 718391249 E66.01 F/u in 3 months. Will increase the dosage each month until reaches 2.4 mg weekly. [id number] Fredy Ellingotn MD [facility] [place] [address] [place] [address] 11/03/2022 10:44:15 11/03/2022 11:13:22 Belching symptom 500389713 R14.2 Use pepcid. Obesity 393551716 E66.9 Is doing infertilit y treatments and has stopped the wegovy x 2 weeks. Anxiety 71033436 F41.9 Tachycardia 0228435 R00. 0 [id number] Fredy Ellington MD [facility] [place] [address] [place] [address] 12/10/2022 16:28:13 12/10/2022 17:22:10 Plantar fasciitis of right foot 7384585981 6041971 M72.2 Injected right heel. If no better than needs to see customer solutions architect . Morbid obesity 641280455 E66.01 Try to call around to see if a pharmacy has wegovy in stock and will Rx [id number] Josh Tavarez MD [facility] [place] [address] [place] [address] 02/25/2023 14:41:12 02/25/2023 15:59:58 Osteoarthritis of left knee joint 3592766560 69799 M17.12 Pain of le ft knee joint 8337421954 91630 M25.562 Contusion of left knee 8841092101 7821710 S80.02XA [id number] Fredy Ellington MD [facility] [place] [address] [place] [address] 04/06/2023 15:24:46 04/08/2023 16:34:03 Administration of influenza vaccine 47717420 Z23 [id number] Epi Chapman DPM [facility] [place] [address] [address] 05/03/2023 11:48:22 11/18/2023 11:36:45 Pain in right foot 6541562671 39509 M79.671 Plantar fa sciitis of right foot 5424855585 0041731 M72.2 Injected Rt leg via trigger injection, standard method; applied low-dye strapping and soft cast ot Rt foot, as compressio n dressing Calcaneal spur of right foot 8676861344 44267 M77.31 [id number] Joaquim Frausto DPM [facility] [place] [address] [place] [address] 05/13/2023 15:42:04 06/01/2023 13:05:02 Pain in right foot 5055440524 66688 M79.671 As above Plantar fa sciitis of right foot 5415633841 6304597 M72.2 Recommend [employer]- [employer] end athletic supportive walking shoe such as new balanceStr etching and icing instructio ns reviewedX- rays reviewed-p lantar heel spur with anterior cyma line breakingLi mited exercising Steroid injection right plantar aponeurosi s-05/13/19 24Follow-u p 3 weeks possible physical therapy at that time Morbid obesity 876864892 E66.01 Recommend weight loss [id number] Joaquim Frausto DPM [facility] [place] [address] [place] [address] 05/31/2023 16:27:40 06/07/2023 10:48:03 Plantar fasciitis of right foot 9403421209 1848123 M72.2 Recommend [employer]- [employer] end athletic supportive walking shoe such as new balanceStr etching and icing instructio ns reviewedX- rays reviewed-p lantar heel spur with anterior cyma line breakingLi mited exercising Steroid injection right plantar aponeurosi s-05/13/19 24, 06/07/23Fol low-up 4 weeks possible physical therapy at that time [id number] Fredy Ellington MD [facility] [place] [address] [place] [address] 06/17/2023 14:41:44 06/17/2023 15:04:40 Anxiety 67619881 F41.9 Attention deficit hyperactivity disorder, predominantly inattentive type 57585073 F90.0 Depressive disorder 3548 9007 F32.A Gastroesop hageal reflux disease 077053823 K21.9 Hyperlipidemia 64937192 E78.5 Insomnia 303808511 G47.0 0 Obesity 879848373 E66.9 Osteoarthritis 154257039 M17.12 [id number] Joaquim Frausto DPM [facility] [place] [address] [place] [address] 06/28/2023 15:45:39 06/28/2023 17:29:01 Plantar fasciitis of right foot 1392065476 6946751 M72.2 Recommend [employer]- [employer] end athletic supportive walking shoe such as new balanceStr etching and icing instructio ns reviewedX- rays reviewed-p lantar heel spur with anterior cyma line breakingLi mited exercising Steroid injection right plantar aponeurosi s-05/13/19 24, 06/07/23Fol low-up, 1 month- finish physical therapy [id number] Joaquim Frausto DPM [facility] [place] [address] [place] [address] 07/19/2023 10:17:46 07/19/2023 11:16:00 Pain in right heel 2896298111 405193 M79.671 patient has failed injections , in physical therapy and shoe gear with continued painrecomm end MRIRx cam bootrice therapy Plantar fa sciitis of right foot 0944377986 1511870 M72.2 Recommend [employer]- [employer] end athletic supportive walking shoe [...] and medially at the nearest emergency room. [id number] Joaquim Frausto DPM [facility] [place] [address] [place] [address] 08/23/2023 16:10:27 08/25/2023 14:36:58 Pain in right heel 8861989762 966848 M79.671 MRI reviewed- positive for plantar fasciitis Plantar fa sciitis of right foot 4991623237 4710915 M72.2 Recommend [employer]- [employer] end athletic supportive walking shoe such as new balanceStr etching and icing instructio ns reviewedX- rays reviewed-p lantar heel spur with anterior cyma line breakingLi mited exercising Steroid injection right plantar aponeurosi s-05/13/19 24, 06/07/23,08/23/23Follow -up, 2 month- possible surgeryedu cated on signs of DVT if present seek medical attention immediatel y [id number] Joaquim Frausto DPM [facility] [place] [address] [place] [address] 10/25/2023 11:14:22 10/25/2023 16:10:11 Pain in right heel 5835836295 186278 M79.671 MRI reviewed- positive for plantar fasciitisR ecommend endoscopic plantar fasciotomy once treatments are completed Plantar fa sciitis of right foot [id number] M72.2 continue Power[employer] orthoticsc ontinue supportive shoe gearRice therapy continue and stretching exercisesf ollow-up post treatment for infertilit y [id number] Rene Bang MD [facility] [place] [address] [place] [address] 06/13/2024 15:29:51 06/13/2024 16:33:52 Pain of right knee joint [id number] M25.561 Osteoarthr itis of right knee joint [id number] 22964 M17.11 [id number] Rene Bang MD [facility] [place] [address] [place] [address] 08/04/2024 11:41:45 08/04/2024 12:22:11 Osteoarthritis of right knee joint [id number] 46976 M17.11 Pain of ri ght knee joint [id number] 66943 M25.561 Health Concerns Section Related Observation LastModified by Organization Detai ls LastModified Time None Recorded Concern Status LastModified by Organization Details LastModified Time None Recorded Advance Directives Directive None Recorded Payers Insurance Date Sequence Insurance Name Policy Number Policy Mahan Covered Member ID Mhaan Member ID Guarantor Name 08/15/[address] [facility] (PP[facility]) [id number] Beni Wright [id number] Haven Aguilera [place] 06/13/2024 [facility] Haven M Tonya SELF SELF Haven Aguilera [place] 07/02/2022 3 [employer] (PPO) [id number] Beni Wright [id number] Haven Aguilera Tonya 06/13/[address] [facility] (MEDICAID HMO) [id number] Haven Diaz [id number] Haven Wright Notes Date Note Type Note [...] any other complaints. Joaquim Frausto, FAYE [address] [facility], [facility] [address], [place], [address], [facility] [employer] 07/19/2023 10:55:00 08/23/2023 text/html . [...] Frausto DPM [address], [place], [address], [employer] [facility] 08/24/2023 13:35:20 10/25/2023 text/html . Patient is [...] Frausto DPM [address], [place], [address], [facility] 10/25/2023 11:41:54 06/13/2024 text/html the patient retu [...] BECKA Serna [address], [place], [address], [facility] 06/13/2024 16:53:05 08/04/2024 text/html The patient retu [...] recheck and evaluation. BECKA Serna [address], [place], [address], [facility] 08/04/2024 12:05:28 OBGyn Episode No OBEpisode recorded.
--- NOTE | 2024-11-02 06:59 | P.PNAN_ITS ---
Anes - Initial Pre Proc Eval Procedure: Operation Date: 11/02/24 07:30 Proposed Procedures p Robotic Laparoscopic Cholecystectomy - Minoo Mcclendon MD Date/Time: 11/02/24 06:59 Surgeon: Minoo Mcclendon MD Pre Op Diagnosis: chronic cholelithiasis with cholecystitis Patient Data Age: 34 Gender: F Height: 1.65 m Weight: 124.7 kg Allergies Allergy/AdvReac Type Severity Reaction Status Date / Time No Known Allergies Allergy Verified 10/26/24 15:13 Home Medications ?Medication ?Instructions ?Recorded ?Confirmed ?Type sertraline 100 mg tablet 100 mg PO BID #180 tabs 05/02/24 10/26/24 Rx ropinirole 0.25 mg tablet 0.5 mg (2 x 0.25 mg) PO QHS #180 08/21/24 10/26/24 Rx tabs tirzepatide (weight loss) 15 15 mg (0.5 mL) subcut WEEKLY #6 mL 10/05/24 10/26/24 Rx mg/0.5 mL subcutaneous pen injector (Zepbound) buspirone 10 mg tablet See Rx Instructions PO DAILY PRN 10/30/24 Rx anxiety #270 tabs pantoprazole 20 mg tablet,delayed 20 mg PO QAM #90 tabs 10/30/24 Rx release Patient hx anesthesia problems: none Family hx anesthesia problems: none Results Review: All pre-operative results and documents have been reviewed as part of the pre- operative evaluation. [facility] Past Medical History Medical History Depression Anxiety PCOS (polycystic ovarian syndrome) Surgical History Surgical History Hx of tonsillectomy 2015 H/O knee surgery x 4 [phone] Family History Family History Mother Acute myocardial infarction Father Blood clot in leg Social History Social History Smoking status: Former smoker Tobacco type: e-cigarettes/vaping Alcohol intake: never Alcohol use details: rare Substance use: current Substance use type: marijuana Other substance usage details: Daily Marijuana use Do You Feel Safe in your Home?: Yes Lack of Transportation: No Lack of Food: Never True Current Housing: I Have Housing Concerned About Future Housing: No Difficulty Paying Gas/Electric Bills: No Difficulty Paying for Meds: No Currently Unemployed: No Education: High School Diploma/GED Difficulty w/ Childcare or Family Care: No Living arrangements: with family Additional living arrangements comments: with Occupation/Education: occupation Gender identity (if verbalized by the patient): Female Sexual Orientation (if Verbalized by the Patient): Straight or Heterosexual Spiritual care concerns: No Anes - Eval Final PreProcedure Day of Procedure 11/02/24 06:59 Patient weight: morbidly obese Lungs: normal air movement Airway: Mallampati scale class II Neurological: alert and oriented Last oral intake: >/= 8 hours ASA classification: III Emergent: no Anesthetic plan: proceed Anesthesia type and monitoring: general ETT and standard monitoring Results Review: All pre-operative results and documents have been reviewed as part of the pre- operative evaluation. BMI 45, pt vapes daily. Pt can walk 1-2 fos, no cp or sob. Informed Consent: The patient's anesthetic plan and its attendant risks and benefits were discussed with the patient/family/POA. Questions were solicited and answers provided to the satisfaction of the patient/family/POA.
[2024-11-02] MEDS: KETOROLAC 15 MG/ML VIAL (*BKC) IV PUSH (07:00)
[2024-11-02] MEDS: ACETAMINOPHEN 500 MG TABLET 1000 MG PO (07:00)
[2024-11-02] MEDS: INDOCYANINE GREEN 25 MG VIAL WITH DILUENT 3.75 MG IV PUSH (07:00)
[2024-11-02] MEDS: LACTATED RINGERS 1,000 ML 30 ML IV CONT ×2 (07:00→10:17)
--- NOTE | 2024-11-02 07:14 | WPDHPUPDATE1 ---
History and Physical Update Update Date/Time: 11/02/24 07:14 History and Physical has been reviewed, including an updated exam of the patient. There are NO changes in the patient's condition. Risks, benefits, and alternatives have been discussed and questions answered. Patient agrees to proceed with procedure.
[2024-11-02] MEDS: SCOPOLAMINE 1 MG PATCH 1 PATCH TRANSDERM (07:24)
[2024-11-02] MEDS: ceFAZolin 3 GM/D5W 100 ML 100 ML IVPB (07:27)
[2024-11-02] MEDS: BUPIVACAINE/EPINEPHRINE 0.5% 50 ML VIAL 30 ML INFILTRATE (08:25)
--- NOTE | 2024-11-02 08:52 | S_PTH ---
PATIENT: Haven Castaneda LOC: [facility] U#:[id number] AGE/SX: 34/F ROOM: RE11/02/[address]: Minoo Mcclendon MD : 1990 BED: DIS: 11/02/2024 SPEC #: [id number] RECD: 11/02/24 09:51 STATUS: LAURA REEmma #: [id number] CHRIS: 11/02/24 08:[address]: Minoo Mcclendon DEPT: [facility] Surgical RECD BY: Xochilt Patterson ENTERED: 11/02/24 09:52 SP TYPE: Surgical OTHR DR: William Franklin MD Tissues: A - Gallbladder Procedures: Hematoxylin and Eosin Stain Gross and Microscopic Level 3
[2024-11-02] MEDS: MIDAZOLAM HCL (*CRX) 2 MG/2 ML VIAL IV PUSH (09:14)
--- NOTE | 2024-11-02 09:19 | W.PM.PROC2 ---
Procedure Note - Detailed Date of Procedure 11/02/24 Pre-op Diagnosis chronic cholelithiasis with cholecystitis Post-op Diagnosis Same Procedure Performed Robotic assisted cholecystectomy, lysis of adhesions of approximately 30 minutes Surgeon Minoo Mcclendon MD Anesthesia General Indications 34-year-old female presenting to office symptoms of postprandial right upper quadrant pain, nausea, bloating. Workup, including imaging, significant for chronic cholecystitis, cholelithiasis. Findings Cholecystitis with cholelithiasis, dense omental adhesions to the gallbladder and liver Description of Procedure The patient was taken to the operating room and placed in the supine position. After adequate induction of general anesthesia, the patient was prepped and draped in the normal sterile fashion. A time-out was then done to verify the patient's identity, as well as the procedure being performed. I began by making a 8 mm incision in the periumbilical region. A Veress needle was then placed in the peritoneal cavity and CO2 gas was insufflated. After adequate pneumoperitoneum was achieved, the Veress needle was removed and a 8 mm Optiview trocar was placed under direct visualization. Once into the abdominal cavity, the introducer was removed and the laparoscope was placed through this trocar site. Under direct visualization, I placed a further 8 mm port in the left mid abdomen and 2x 8 mm ports in the right mid abdomen. The robot was then docked to these ports sites. I then went to the console. The gallbladder was then identified and noted to be inflamed and distended. There was noted to be a dense amount of omental adhesions to both the gallbladder and the immediately surrounding liver. A extensive lysis of adhesions was undertaken to free these adhesions from both the gallbladder and liver. This was done both bluntly and sharply with the cautery. This lysis of adhesions took approximately 30 minutes. Once free the omental adhesions, I was able to place a grasper at the dome of the gallbladder and this was retracted up and over the liver. A 2nd retractor was used to grasp the infundibulum and retracted laterally. This allowed visualization and dissection of the triangle of Calot. I then began dissection around the triangle Calot. I first identified the cystic duct, I was able to visualize the entirety of the duct from its proximal insertion into the gallbladder to its the distal junction with the common hepatic/common bile duct junction. I did use the firefly visualization at this point to confirm the anatomy. The proximal cystic duct was then further skeletonized, clipped, and transected. Next I visualized the cystic artery. Again the structure was skeletonized, clipped, and transected. I then again used firefly to confirm anatomy and no aberrant anatomy was noted. I then used the Bovie cautery to take down the peritoneal attachments of the gallbladder off the liver bed. Once the gallbladder specimen was completely detached, an Endo pouch was placed through the left mid abdominal 8 mm port site and the gallbladder specimen was placed in the endo-pouch and subsequently removed. I then re-examined the right upper quadrant. Hemostasis was noted in the liver bed and the clips were noted to be in good position on both the duct and the artery. No other pathology was seen in the right upper quadrant. All instruments were then removed and the robot was undocked. The abdomen was then desufflated and all ports were removed. All port sites were then closed with 4-0 Monocryl subcuticular suture. Dermabond was placed on each was wound. The patient tolerated the procedure well and was extubated in the operating room postop. The patient will now be transferred to the recovery room in stable condition. Estimated Blood Loss 10 Drains No Packing No Pathology Yes Complications No immediate complications Condition Stable Disposition PACU [facility] Billing Surgery - Charge Forward: Surgery Billing
[2024-11-02] MEDS: fentaNYL CITRATE INJ (*CRX) 100 MCG/2 ML VIAL 25 MCG IV PUSH ×2 (09:54→10:05)
[2024-11-02] MEDS: oxyCODONE HCL (*CRX) 5 MG TAB IR PO (10:33)
== END 2024-11-02 11:30 | disposition home or self-care (01) ==
PROVIDERS: PCP Family Medicine; Visit Provider Surgery
PROC: 0FT44ZZ Resection of Gallbladder, Percutaneous Endoscopic Approach (ICD-10-PCS; CPT 47562; principal; 2024-11-02 07:30)
DX: K80.10 Calculus of gallbladder with chronic cholecystitis without obstruction (principal); K66.0 Peritoneal adhesions (postprocedural) (postinfection); F12.90 Cannabis use, unspecified, uncomplicated; Z87.891 Personal history of nicotine dependence; E66.01 Morbid (severe) obesity due to excess calories; Z68.42 Body mass index [BMI] 45.0-49.9, adult
CPT/HCPCS: 47563; S2900; 88304; A9270; J0690; J1885; J2250; J3010; J7030; J7120

== ENCOUNTER 2024-11-08 17:27 | Emergency (ER) | payer BC, SELFPAY ==
--- NOTE | 2024-11-08 17:35 | ED_ITS ---
HPI - General Adult General Chief complaint: Wound/Laceration Stated complaint: WOUND CHECK Time Seen by Provider: 11/08/24 17:35 Source: patient Mode of arrival: ambulatory Limitations: no limitations History of Present Illness HPI narrative: 34 yo F presents with concern for infection to surgical incision. Pt 1 wk post op from cholecystectomy with Dr. Mcclendon. Noticed drainage and redness around 5p. States office was already closed. All systems reviewed and negative except as noted above. Related Data Allergies Allergy/AdvReac Type Severity Reaction Status Date / Time No Known Allergies Allergy Verified 11/08/24 17:33 PMFSH Past Medical History Medical History Depression Anxiety PCOS (polycystic ovarian syndrome) Surgical History Surgical History Hx of tonsillectomy 2014 H/O knee surgery x 4 [phone] Family History Family History Mother Acute myocardial infarction Father Blood clot in leg Social History Social History Smoking status: Former smoker Tobacco type: e-cigarettes/vaping Alcohol intake: never Alcohol use details: rare Substance use: current Substance use type: marijuana Other substance usage details: Daily Marijuana use Do You Feel Safe in your Home?: Yes Lack of Transportation: No Lack of Food: Never True Current Housing: I Have Housing Concerned About Future Housing: No Difficulty Paying Gas/Electric Bills: No Difficulty Paying for Meds: No Currently Unemployed: No Education: High School Diploma/GED Difficulty w/ Childcare or Family Care: No Living arrangements: with family Additional living arrangements comments: with Occupation/Education: occupation Gender identity (if verbalized by the patient): Female Sexual Orientation (if Verbalized by the Patient): Straight or Heterosexual Spiritual care concerns: No Comments At time of signature, agree with nursing past medical, surgical, social and family history. There is no relevant family history pertinent to the presenting complaint. Exam Narrative: GENERAL: This is a well-nourished, well-developed patient, in no apparent distress. HEAD: normocephalic, atraumatic. EYES: PERRL. Sclera clear/white. Vision is grossly intact. EARS: External ears normal NOSE: External nose normal NECK: Neck supple, non-tender without lymphadenopathy, masses or thyromegaly. CARDIOVASCULAR: Regular rate and rhythm without murmurs, gallops, or rubs. RESPIRATORY: Clear to auscultation. Breath sounds equal bilaterally. No wheezes, rales, or rhonchi. GASTROINTESTINAL: Abdomen soft, non-tender, nondistended. Bowel sounds are active. four surgical incisions noted mid abdomen. mild erythemat to all 4 incisions, possibly irritation from skin adhesive. incision above umbilicus has surrounding swelling that extends into umbilicus. malodorous yellowish brown drainge noted. tender on palpation. no fluctuance concerning for abscess. SKIN: warm, Dry, intact with no suspicious lesions or rash, good texture and turgor. NEURO: awake, alert, and oriented to person, place and time. There were no obvious focal neurologic abnormalities. EXTREMITIES: No joint tenderness, effusion, or edema noted. Course Course Level of Care: Express Care Visit Vital Signs Vital signs: Vital Signs Temperature 36.6 C 11/08/24 17:36 Pulse Rate 91 11/08/24 17:36 Respiratory Rate 18 11/08/24 17:36 Blood Pressure 117/86 11/08/24 17:36 Pulse Oximetry 100 11/08/24 17:36 Temperature 36.6 C 11/08/24 17:36 Pulse Rate 91 11/08/24 17:36 Respiratory Rate 18 11/08/24 17:36 Blood Pressure 117/86 11/08/24 17:36 Pulse Oximetry 100 11/08/24 17:36 Reviewed Medical Decision Making MDM Narrative Medical decision making narrative: will treat patient with clindamycin for possible surgical incision site infection due to malodorous yellowish brown drainage with erythema and swelling to surgical incision. Patient agrees with plan of care. Recommend she call Dr. Ramirez tomorrow and update him. Vital Signs Vital Signs: Vital Signs Temperature 36.6 C 11/08/24 17:36 Pulse Rate 91 11/08/24 17:36 Respiratory Rate 18 11/08/24 17:36 Blood Pressure 117/86 11/08/24 17:36 Pulse Oximetry 100 11/08/24 17:36 Temperature 36.6 C 11/08/24 17:36 Pulse Rate 91 11/08/24 17:36 Respiratory Rate 18 11/08/24 17:36 Blood Pressure 117/86 11/08/24 17:36 Pulse Oximetry 100 11/08/24 17:36 Discharge Plan Discharge Clinical Impression: Post op infection Qualifiers: Encounter type: initial encounter Postoperative infection type: unspecified type Qualified Code(s): T81.40XA - Infection following a procedure, unspecified, initial encounter Patient Disposition: Home Condition: Stable Instructions: Antibiotic Form, Surgical Site Infections (ED) Additional Instructions: Take antibiotic as prescribed until gone. Call and informed your surgeon of symptoms and that you have been prescribed an antibiotic. Follow-up with your surgeon at scheduled follow-up appointment. Patient Language: Amharic Prescriptions: New clindamycin HCl [Cleocin HCl] 300 mg capsule 300 mg PO Q8H 7 Days Qty: 21 0RF No Action Zepbound 15 mg/0.5 mL pen injector 15 mg subcut WEEKLY Qty: 6 0RF sertraline 100 mg tablet 100 mg PO BID Qty: 180 3RF ropinirole 0.25 mg tablet 0.5 mg PO QHS Qty: 180 2RF Rx Instructions: Take 2 tablets (0.5mg) 1 hour before bed. buspirone 10 mg tablet See Rx Instructions PO DAILY PRN (Reason: anxiety) Qty: 270 0RF Rx Instructions: Take 1 in the morning and 2 at bedtime. pantoprazole 20 mg tablet,delayed release (DR/EC) 20 mg PO QAM Qty: 90 0RF Follow-up/Referrals: Martita Tinajero FNP [Primary Care Provider] - Time of Disposition: 17:50
[2024-11-08 17:36] VITALS: BP 117/86; PULSE 91; RESP 18; TEMP 36.6; O2SAT 100
== END 2024-11-08 17:57 | disposition home or self-care (01) ==
PROVIDERS: Emergency Provider Nurse Practitioner Family; PCP Nurse Practitioner Family
DX: T81.40XA Infection following a procedure, unspecified, initial encounter (principal); Z87.891 Personal history of nicotine dependence; F12.90 Cannabis use, unspecified, uncomplicated; E28.2 Polycystic ovarian syndrome; F41.9 Anxiety disorder, unspecified; F32.A Depression, unspecified
CPT/HCPCS: 99213; G0463